=== PATIENT | female | born 1940 | race Caucasian/White ===

== ENCOUNTER 2022-05-19 09:00 | Outpatient (RCR) | payer MEDICARE, OTHER, SELFPAY ==
--- NOTE | 2022-04-21 13:53 | PTOPEVAL ---
Thank you for referring Janie Jorge to [facility].? She is scheduled to be seen for therapy? 3 x/week for 5 weeks. Please review, sign, date and return this plan of care FRANCESCA. I agree with and certify that the following plan of care is medically necessary. Referring Physician Date Attending Provider: Ramon Krueger MD Outpatient Past Medical History Past Medical History Source of Past Medical History Patient Neurological History Hx Neurological Disorders No Significant History Cardiovascular History Hx Atrial Fibrillation Yes Hx Hypercholesterolemia Yes: meds Hx Hypertension Yes: meds Hx Other Cardiac Disorders Yes: stents placed in abdomen for leg circulation February 2022 Respiratory History Hx Sleep Apnea Yes: CPAP Gastrointestinal History Hx Cholecystectomy Yes Musculoskeletal History Hx Arthritis Yes: generalized Hx Orthopedic Surgery Yes: B TKR > 20 yr ago Hx Other Musculoskeletal Disorders Yes: B shoulder pain/recommend for shoulder replacement- pt not want Endocrine History Hx Endocrine Disorders No Significant History Other History Hx Other Medical Conditions Yes: obesity Evaluation Information Problem Diagnosis B LE lymphedema Onset about 1 year Prior Level of Function Home Setting Home Type House Environmental Barriers Stairs, 2-4,Stairs, Lift Living Situation Alone Support Available Hired Assistance,Local Family Support Mobility Assistive Devices (Used Last 3 Walker, Standard Months) Comments Additional Prior Level of Function family assist with bathing, Comments dressing; hired helper for cleaning, laundry, cooking; does not go out into the community; Pain Assessment Pain Score 0: Self Report Lower Extremity Range of Motion General Lower Extremity Range of Motion Gross Lower Extremity Range of Motion sitting: ankle DF 5'; knee 0- Comments 95' B; Gross Lower Extremity Strength functional strength testing in sitting: R/L hip flexion 8 reps with slight lift off table; knee extension x 10 reps B to 0'; sit to stand with use of B UE's Bed Transfer Assessment Ambulation Assistive Devices Walker, Wheeled Sit to Stand Bed Transfer Ability Contact Guard Stand to Sit Bed Transfer Ability Contact Guard Cues Needed for Bed Transfer None Bed Transfer Comments
--- NOTE | 2022-05-13 15:24 | PCPTNOTE ---
pt signed release of info consent; faxed her info to [facility] for insurance authorization for a home compression pump.
--- NOTE | 2022-05-19 10:08 | PTOPEVAL ---
PHYSICAL THERAPY DISCHARGE REPORT 05-19-22 Refer to the clinical summary for her status today, compared to the initial evaluation. She made good progress with treatment. She will be discharged from PT services at this time. Thank you for referring Janie Jorge to [facility].? Please review, sign, date and return this Discharge report FRANCESCA. I agree with and certify that the following plan of care is medically necessary. Referring Physician Date Attending Provider: Ramon Krueger MD Subjective Information Janie reports: legs are not Query Text:As Reported By Patient/ as heavy; doing OK with Family garments--hard to put on, but can do it; will have family and helper at home help her; have the home pump, but not yet had the rep there to teach her how to use it--will call them for a time; Pain Assessment Self Report Self Report Pain Level 0 Pain Score Pain Score 0: Self Report Lymphedema Evaluation Skin Inspection Location Left Lower Extremity,Right Lower Extremity Lymphedema Stage I Skin Inspection Comment good skin color over both legs , with minimal redness over both anterior ankles, where garment rubbed; R 2 & 3 toes purplish- blue/bruised--she does not recall bumping them multiple areas of bruising over B thighs tenderness reported over both anterior shins verbal review of self MLD, skin care, garment don/doffing , wearing schedule; measured R and L ankles and mid calf--issued #'s to pt for self check PRN of leg size LE Circumferential Measurement Left LE Lymphedema Side Left Metatarsal Heads (cm) 21 Figure 8 of Ankle (cm) 52 8 cm From Bottom of Foot (cm) 26.4 12 cm From Bottom of Foot (cm) 26.4 16 cm From Bottom of Foot (cm) 28.2 20 cm From Bottom of Foot (cm) 31 24 cm From Bottom of Foot (cm) 37.8 28 cm From Bottom of Foot (cm) 40.8 32 cm From Bottom of Foot (cm) 45.5 36 cm From Bottom of Foot (cm) 49 40 cm From Bottom of Foot (cm) 52.5 44 cm From Bottom of Foot (cm) 57 48 cm From Bottom of Foot (cm) 59.5 52 cm From Bottom of Foot (cm) 62 56 cm From Bottom of Foot (cm) 64 60 c
--- NOTE | 2022-05-31 16:02 | PCPTNOTE ---
PER RIP AND GROOVE MACHINE OPERATOR KAYLYNN BENTLEY: Carolina Broderick, Janie's?daughter called in regards to Pt's compression wraps. Obtained permission from Pt's emergency contact Mandy (Daughter) to speak with Carolina about Janie's wraps. Called Carolina back discussed and educated her on?Velcro wrap compression wear schedule, garment care, and compression pump. Answered questions and concerns about wraps and how to properly inspect skin for any changes. Carolina asked about home health nursing, informed her to contact home health resources provided by Pt's insurance.?Informed her to give us a call if she had any more questions.? entered by Jordana Cyr; Director of Rehab Services for Kaylynn Bentley
== END 2022-05-19 12:56 | disposition home or self-care (01) ==
LOC: ANHPT 09:00
PROVIDERS: PCP Internal Medicine
DX: I89.0 Lymphedema, not elsewhere classified (principal)
CPT/HCPCS: 29581; 97016; 97110; 97140; 97162; 97530

== ENCOUNTER 2023-02-04 17:31 | Inpatient (IN) | payer MEDICARE, OTHER, SELFPAY ==
[2023-02-04] VITALS (19 sets, daily range): BP systolic 145–188; BP diastolic 62–170; PULSE 65–80; RESP 14–28; TEMP 36.6–36.8; O2SAT 96–98; BMI 40.1
--- NOTE | ~2023-02-04 | XR_ITS ---
EXAMINATION: XR chest 1V DATE: 02/04/2023 19:07 INDICATION: Weakness. Fall. TECHNIQUE: frontal view of the chest was obtained. COMPARISON: None FINDINGS: Small calcified nodules in the right lower lung zone consistent with old granulomatous disease. Mild coarse reticular opacities at the right upper lung zone and scattered throughout the left lung. Likel y tiny bilateral pleural effusions. No pneumothorax. Borderline heart size accounting for AP techniqu e. Severe osteoarthritis at the bilateral shoulders. IMPRESSION: 1. Mild reticular opacities in right upper lung zone and scattered throughout the left lung which cou ld represent mild pulmonary edema, pneumonia, atelectasis or chronic interstitial lung disease. 2. Likely tiny bilateral pleural effusions. 3. Borderline heart size. Reviewed, dictated and finalized at location A. IMPRESSION: 1. Mild reticular opacities in right upper lung zone and scattered throughout t he left lung which could represent mild pulmonary edema, pneumonia, atelectasis or chronic interstitial lung disease. 2. Likely tiny bilateral pleural effusions. 3. Borderline heart size.
--- NOTE | ~2023-02-04 | XR_ITS ---
EXAMINATION: XR lumbar spine min 4V DATE: 02/04/2023 19:06 INDICATION: Trauma to the low back post fall TECHNIQUE: Anteroposterior, lateral, and bilateral oblique views of the lumbar spine, and cone-down l ateral view of the lumbosacral junction were obtained. COMPARISON: None. FINDINGS: 304 mm retrolisthesis L1 on L2 and L2 on L3. 3 mm anterolisthesis L4 on L5. Vertebral body heights ar e normal. Sacral arches are intact. No evident fracture. Severe disc height loss with possible second ulysses fusion at L5-S1. Additional severe disc height loss with vacuum phenomena at . Moderate disc heig ht loss at L4-L5. Mild disc height loss at the lower thoracic spine, L1-L2 and L3-L4. Multilevel yaneth re bilateral lumbar facet osteoarthritis. No evident pars interarticularis defects. Right common martha c to common femoral artery stenting. Cholecystectomy clips in right upper quadrant. Mild osteoarthrit is at the bilateral hip and sacroiliac joints. IMPRESSION: 1. Severe lumbar spondylosis. No evident acute osseous abnormality. Reviewed, dictated and finalized at location A.
--- NOTE | 2023-02-04 17:41 | ECG_ITS ---
Measurements Intervals [place] Rate: 86 P: [place]: 0 QRS: -52 QRSD: 106 T: 102 QT: 320 QTc: 384 Interpretive Statements ATRIAL FIBRILLATION MARKED LEFT AXIS DEVIATION [QRS AXIS < -30] PATTERN CONSISTENT WITH PULMONARY DISEASE MODERATE VOLTAGE CRITERIA FOR LVH, CONSIDER NORMAL VARIANT [MEETS CRITERIA IN ONE OF: R(aVL), S(V1), R(V5), R(V5/V6)+S(V1)] POSSIBLE SEPTAL MYOCARDIAL INFARCTION , PROBABLY OLD [30 ms Q WAVE IN V1/V2] NO PREVIOUS ECG AVAILABLE FOR COMPARISON Electronically Signed On 02-04-2023 22:19:46 CDT by Savanah Dangelo M.D.
--- NOTE | 2023-02-04 17:47 | ED.FALL ---
HPI - Fall General Chief Complaint: Fall <LILIA Gonsalez Last Filed: 02/05/23 02:28> Stated Complaint: weakness <LILIA Gonsalez Last Filed: 02/05/23 02:28> Time Seen by Provider: 02/04/23 17:41 <LILIA Gonsalez Last Filed: 02/05/23 02:28> Source: patient and family <LILIA Gonsalez Last Filed: 02/05/23 02:28> Mode of arrival: ambulatory <LILIA Gonsalez Filed: 02/05/23 02:28> Limitations: no limitations <LILIA Gonsalez Last Filed: 02/05/23 02:28> History of Present Illness HPI Narrative: Patient is an 82 y/o female who presents to the ED with c/o weakness. Family at bedside assisted in providing information. They report patient has been increasingly weak over the last 1 week or so. Having more difficulty ambulating, performing her own ADLs. She lives at home alone. Patient typically uses a walker for ambulation, but does also have a wheelchair. Patient reported having urinary frequency and urgency, but difficulty actually voiding. She states she feels like she has to go, but is unable to. She was started on Macrobid by her primary care doctor on for suspected UTI. She did not have a urinalysis drawn at that time. Today, patient stood up out of her wheelchair to put a pair of pants on, but became weak and fell. She slid down the chair and landed on her bottom. She denied feeling dizzy or lightheaded prior to the fall, just weak. She did not hit her head or lose consciousness. Does not believe she passed out. She denied any significant injury from the fall, but did hit her low back against the chair. She was unable to get back up off the ground until family arrived approximately 1 hour later. Patient denies any recent fever, cough, cold symptoms, chest pain, difficulty breathing, abdominal pain, nausea, vomiting. <LILIA Gonsalez Filed: 02/05/23 02:28> Related Data Home Medications: Home Medications Medication Instructions Recorded Confirmed apixaban 5 mg tablet (Eliquis) 5 mg PO BID 02/17/21 02/04/23 calcium carbonate 500 mg calcium 500 mg PO DAILY 02/17/21 02/04/23 (1,250 mg) chewable tablet (Calcium 500) losartan 100 mg tablet 100 mg PO DAILY 02/17/21 02/04/23 mirabegron 50 mg tablet,extended 50 mg PO DAILY 02/17/21 02/04/23 release 24 hr (Myrbetriq) acetaminophen 500 mg tablet 500 mg PO Q6H PRN Pain 06/04/21 02/04/23 (Tylenol Extra Strength) diphenhydramine HCl 12.5 mg/5 mL 12.5 mg PO QHS PRN Sleep 06/04/21 02/04/23 oral elixir atorvastatin 20 mg tablet 20 mg PO DAILY 02/04/23 02/04/23 escitalopram oxalate 10 mg tablet 10 mg PO DAILY 02/04/23 02/04/23 <Nancy Santana PA-C - Last Filed: 02/05/23 02:28> Allergies/Adverse Reactions: Allergies Allergy/AdvReac Type Severity Reaction Status Date / Time No Known Allergies Allergy Verified 01/07/22 14:05 <Nancy Santana PA-C - Last Filed: 02/05/23 02:28> Review of Systems Review of Systems: CONSTITUTIONAL: Denies fever, chills, or sweats. EYES: Denies visual changes. CARDIOVASCULAR: Denies chest pain. RESPIRATORY: Denies cough or dyspnea. GASTROINTESTINAL: Denies abdominal pain, nausea, vomiting, or diarrhea. GENITOURINARY: See HPI. SKIN: Denies rash or itching. MUSCULOSKELETAL: See HPI. NEUROLOGIC: See HPI. <Nancy Santana PA-C - Last Filed: 02/05/23 02:28> All systems reviewed & are unremarkable except as noted in HPI and below <Nancy Santana PA-C - Last Filed: 02/05/23 02:28> PMFSH Past Medical History Medical History: Medical History RUPERT positive Arthritis Atrial fibrillation Encounter for medication management Generalized osteoarthritis of multiple sites Hypertension Inflammatory arthritis Lymphedema CHRIS (obstructive sleep apnea) <Nancy Santana PA-C - Last Filed: 02/05/23 02
--- NOTE | 2023-02-04 17:56 | PC.NURSE ---
MASTER Cruz at bedside to assess pt.
[2023-02-04 18:37] LABS: Basophils Absolute Auto 0.1 K/mm3 (0.0-0.1); Basophils Percent Auto 0.5 % (0.2-1.2); Eosinophils Absolute Auto 0.4 K/mm3 (0-0.3); Hematocrit 44.8 % (37.0-47.0); Hemoglobin 15.1 g/dL (12.0-15.0); Immature Granulocyte Absolute 0.06 K/mm3 (0.00-0.031); Immature Granulocyte Percent A 0.5 % (0-0.5); Lymphocytes Absolute Auto 0.65 K/mm3 (0.9-3.2); Lymphocytes Percent Auto 5.6 % (18.3-44.2); Mean Corpuscular HGB Conc 33.7 g/dl (32-36); Mean Corpuscular Hemoglobin 30.1 pg (26-34); Mean Corpuscular Volume 89.4 fl (80-100); Mean Platelet Volume 9.5 fl (7.4-10.4); Monocytes Absolute Auto 0.9 K/mm3 (0.1-0.6); Monocytes Percent Auto 7.6 % (2.6-8.5); Neutrophils Absolute Auto 9.7 K/mm3 (1.3-6.7); Neutrophils Percent Auto 82.8 % (45.5-73.1); Platelet Count Result 254 k/mm3 (150-375); Red Blood Count 5.01 M/mm3 (4.2-5.4); Red Cell Distribution Width 14.2 % (11.5-14.5); White Blood Count 11.7 K/mm3 (4.5-10.0)
[2023-02-04 19:01] LABS: Alanine Aminotransferase 18 U/L (6-35); Albumin Level 4.2 g/dL (3.5-5.1); Alkaline Phosphatase 78 U/L (38-126); Anion Gap 6 mmol/L (8-16); Aspartate Amino Transferase 24 U/L (14-36); Bilirubin,Total 1.2 mg/dL (0.2-1.3); Blood Urea Nitrogen 13 mg/dL (7-17); Calcium 9.7 mg/dL (8.4-10.2); Carbon Dioxide 39 mmol/L (22-30); Chloride 86 mmol/L (98-107); Creatine Kinase 80 U/L (30-135); Estimated Glomerular Filt Rate > 60; Glucose 81 mg/dL (65-110); Sodium 131 mmol/L (137-145)
[2023-02-04 19:10] LABS: NT Pro B Type Natriuretic Pept 1080 pg/mL (19.9-100); Troponin I < 0.012 ng/mL (0.000-0.034)
[2023-02-04 19:13] LABS: Influenza A QL RT-PCR Negative (Negative); Influenza B QL RT-PCR Negative (Negative); SARS-CoV-2 RNA PCR Negative
--- NOTE | 2023-02-04 19:14 | PC.NURSE ---
Patient report given to PUNEET Segundo. All questions answered and care of patient transferred.
[2023-02-04 19:15] LABS: Add Urine Microscopic? YES; Appearance Urine Clear (Clear); Bacteria Urine None Seen /hpf; Bilirubin Urine Negative (Negative); Blood Urine Negative (Negative); Color Urine Dark Yellow (Yellow); Glucose Urine UA Negative (Negative); Ketones Urine Negative (Negative); Leukocyte Esterase Ur Trace LEU/UL (Negative); Need Manual Microscopic Reviewed; Nitrate Urine Negative (Negative); Non Pathogenic Casts 0-2; Protein Urine Negative (Negative); Specific Grav Ur 1.012 (1.001-1.035); Squamous Epithelial Cell Urine Occasional /hpf (Few); WBC Urine 0-5 /hpf
--- NOTE | 2023-02-04 20:33 | PC.NURSE ---
Purewick catheter placed for patient comfort due to frequent urination and difficulty with rolling on ED stretcher.
[2023-02-04] MEDS: SODIUM CHLORIDE 0.9% IV 500 ML 999 ML IV CONT (21:20)
[2023-02-04] MEDS: POTASSIUM CHLORIDE INJ 40 MEQ in SODIUM CHLORIDE 0.9% IV 500 ML 130 MEQ IVPB (21:20)
--- NOTE | 2023-02-04 21:30 | PM.IMHP ---
H&P: HPI History of Present Illness Date/Time: 02/04/23 21:30 Chief Complaint: Generalized weakness Narrative: This is an 82-year-old female with past medical history significant for morbid obesity, atrial fibrillation, rate controlled anticoagulated, chronic lymphedema, generalized osteoarthritis, hypertension, obstructive sleep apnea. Patient presents to the emergency room due to generalized weakness had a for while sitting in a chair, no loss of consciousness, patient recently concluded outpatient treatment for urinary tract infection with oral antibiotics, Macrobid, denies any fevers, rigors, chills, nausea, vomiting, abdominal pain, pain or burning with urination, no chest pain, no palpitations. Preliminary workup was significant for WBC with the leukocyte count of 11,000, a chest x-ray was reported as: FINDINGS: Small calcified nodules in the right lower lung zone consistent with old granulomatous disease. Mild coarse reticular opacities at the right upper lung zone and scattered throughout the left lung. Likely tiny bilateral pleural effusions. No pneumothorax. Borderline heart size accounting for AP technique. Severe osteoarthritis at the bilateral shoulders. IMPRESSION: 1. Mild reticular opacities in right upper lung zone and scattered throughout the left lung which could represent mild pulmonary edema, pneumonia, atelectasis or chronic interstitial lung disease. 2. Likely tiny bilateral pleural effusions. 3. Borderline heart size. Review of Systems Review of Systems: Generalized weakness Constitutional: Constitutional: Denies chills, Reports fatigue, Denies fever(s), Reports lethargy, Denies malaise, Denies night sweats and Reports weakness Eyes: Eyes: Denies change in vision ENT: Denies dysphagia and Denies odynophagia Cardiovascular: Cardiovascular: Denies chest pain, Reports leg edema, Denies palpitations and Reports dyspnea Respiratory: Respiratory: Denies chest congestion, Denies cough, Denies excessive phlegm production, Denies pain on inspiration and Reports dyspnea Gastrointestinal: Gastrointestinal: Denies abdominal pain, Denies dyspepsia, Denies heartburn, Denies diarrhea, Denies nausea and Denies vomiting Genitourinary: Genitourinary: Denies dysuria Musculoskeletal: Musculoskeletal: Denies back pain, Denies myalgias, Reports arthralgias (Bilateral groin area) and Reports muscle weakness Integumentary/Breasts: Skin/Breast: Denies rash Neurologic: Denies focal weakness and Denies Sensory deficit (Neuro) Psychiatric: Psychiatric: Reports no additional psychiatric complaints and Reports as per HPI Endocrine: Endocrine: Denies cold intolerance, Denies flushing, Denies heat intolerance, Denies polyphagia, Denies polydipsia and Denies palpitations Hematologic/Lymphatic: Hematologic/Lymphatic: Reports no additional hematologic/lymphatic complaints and Reports as per HPI Allergic/Immunologic: Allergic/Immunologic: Reports no additional allergic/immunologic complaints and Reports as per HPI PMFSH Past Medical History Medical History (Updated 02/05/23 @ 01:08 by Marbella Rodriguez MD) RUPERT positive Arthritis Atrial fibrillation Encounter for medication management Generalized osteoarthritis of multiple sites Hypertension Inflammatory arthritis Lymphedema CHRIS (obstructive sleep apnea) Family History Family History Father Cerebrovascular accident Social History Social History Smoking packs per day: 0.5 Smoking cigarettes per day: 10.0 Years smoked: 30 Smoking pack-years: 15.00 Smoking status: Former smoker Tobacco type: cigarettes Alcohol intake: current Substance use: never Substance use type: does not use Lack of Transportation: No Lack of Food: Never True Current Housing: I Have Housing Concerned About Future Housing: No Difficulty Paying Gas/Electric Bill
--- NOTE | 2023-02-04 23:10 | ADMGEN ---
This patient, Janie Jorge, was admitted to [facility] Room 332-02. Patient/family oriented to hospital policies and general routines including ID bracelet, bed and alarms, visiting hours, pain management, procedures, bathroom and other care routines, personal items, smoking policy, room service/diet, and visiting hours. Information on how to activate the Rapid Response Team has been discussed. Patient/Family are encouraged to report perceived risks to care and to ask questions if they do not understand what they are told or what they should do.
[2023-02-05] MEDS: cefTRIAXone 2 GM/NS 100 ML 2 GM/100 ML BAG IVPB (01:57)
[2023-02-05] MEDS: methocarbamoL 750 MG TABLET PO ×3 (01:57→20:02)
[2023-02-05] MEDS: APIXABAN 5 MG TABLET PO ×3 (01:57→16:24)
[2023-02-05 06:00] VITALS: BP 154/66; PULSE 72; RESP 20; TEMP 36.7; O2SAT 95
[2023-02-05] MEDS: MIRABEGRON 50 MG ER TABLET PO (08:43)
[2023-02-05] MEDS: ESCITALOPRAM OXALATE 10 MG TABLET PO (08:43)
[2023-02-05] MEDS: CALCIUM CARBONATE (TUMS) 500 MG (200 MG ELEMENTAL) PO (08:43)
[2023-02-05] MEDS: LOSARTAN POTASSIUM 100 MG TABLET PO (08:43)
--- NOTE | 2023-02-05 08:44 | PM.IMPN ---
Progress Note: A&P Assessment and Plan (1) Generalized weakness: Code(s): R53.1 - Weakness Status: Acute Assessment and Plan: Patient with increasing weakness over the last week. Patient typically uses walker for ambulation. Patient recently treated for UTI with Macrobid. On 02/04/2023 patient had stood up and began to felt weak and fell. Likely deconditioning PT OT consult UA with trace leukocyte esterase and 6-10 rbc's. Chest x-ray could represent mild pulmonary edema, pneumonia, atelectasis or chronic interstitial lung disease. White count on admission 11.7 Will continue UTI treatment. Prior to ED arrival patient had been treated for 3 days. Will treat for an additional 4 days for total of 7 days UTI treatment. Will give patient Rocephin 1 g Q 24 hours. Blood culture pending EKG revealed AFib BNP 1080, echocardiogram ordered (2) Lung infiltrate: Code(s): R91.8 - Other nonspecific abnormal finding of lung field Status: Acute Assessment and Plan: Patient given 1 dose of Rocephin and Zithromax in the ED. will hold and wait on culture results. Patient does not appear infectious. Cultures in progress (3) Fall: Code(s): W19.XXXA - Unspecified fall, initial encounter Status: Acute Assessment and Plan: For precautions No pain from fall or evidence of fracture. (4) Atrial fibrillation: Code(s): I48.91 - Unspecified atrial fibrillation Status: Chronic Assessment and Plan: Rate control and anticoagulated (5) Lymphedema: Code(s): I89.0 - Lymphedema, not elsewhere classified Status: Chronic Assessment and Plan: Art wraps in place (6) Hypertension: Code(s): I10 - Essential (primary) hypertension Status: Chronic Assessment and Plan: Continue home meds Continue to monitor Subjective Date/time seen: 02/05/23 08:44 Interval history: Patient with progressive weakness and having difficulty going from sitting to standing. She does have a history of CHF although she denies increased shortness of breath and chest pain. She has lymphedema bilaterally of the lower extremities is chronically edematous. She does report difficulty with starting the flow of urination. Will bladder scan. Talked with both the patient's daughters about plans for possible rehab. Review of Systems Review of Systems: All systems reviewed & are unremarkable except as noted in HPI and below Objective Data Vital Signs Vital Signs: Vital Signs - 24 hr 02/04/23 17:33 02/04/23 17:51 02/04/23 17:52 Temperature 97.8 F Pulse Rate 74 78 79 Respiratory Rate 18 25 H 22 H Blood Pressure 145/108 H 163/79 H Pulse Oximetry 98 98 96 Oxygen Delivery Room Air 02/04/23 18:00 02/04/23 18:15 02/04/23 18:30 Temperature Pulse Rate 67 74 67 Respiratory Rate 18 22 H 18 Blood Pressure Pulse Oximetry 96 Oxygen Delivery 02/04/23 18:45 02/04/23 19:06 02/04/23 19:15 Temperature Pulse Rate 73 73 65 Respiratory Rate 19 14 20 Blood Pressure Pulse Oximetry 97 98 Oxygen Delivery 02/04/23 19:17 02/04/23 19:30 02/04/23 19:45 Temperature Pulse Rate 66 75 79 Respiratory Rate 19 16 26 H Blood Pressure 188/170 H Pulse Oximetry 98 Oxygen Delivery 02/04/23 20:32 02/04/23 20:45 02/04/23 21:00 Temperature Pulse Rate 80 68 70 Respiratory Rate 25 H 20 22 H Blood Pressure Pulse Oximetry Oxygen Delivery 02/04/23 21:16 02/04/23 21:31 02/04/23 21:45 Temperature Pulse Rate 70 72 80 Respiratory Rate 22 H 26 H 28 H Blood Pressure Pulse Oximetry Oxygen Delivery 02/04/23 23:39 02/04/23 23:16 02/05/23 06:00 Temperature 98.2 F 98.1 F Pulse Rate 75 72 Respiratory Rate 20 20 Blood Pressure 152/62 H 154/66 H Pulse Oximetry 96 95 Oxygen Delivery Room Air Intake/Output Intake/Output: Intake & Outp
[2023-02-05 08:48] LABS: Hematocrit 42.5 % (37.0-47.0); Hemoglobin 13.8 g/dL (12.0-15.0); Mean Corpuscular HGB Conc 32.5 g/dl (32-36); Mean Corpuscular Hemoglobin 29.6 pg (26-34); Mean Platelet Volume 9.8 fl (7.4-10.4); Platelet Count Result 221 k/mm3 (150-375); Red Blood Count 4.67 M/mm3 (4.2-5.4); Red Cell Distribution Width 14.5 % (11.5-14.5); White Blood Count 10.1 K/mm3 (4.5-10.0)
[2023-02-05 08:55] LABS: Anion Gap 4 mmol/L (8-16); Blood Urea Nitrogen 16 mg/dL (7-17); Carbon Dioxide 34 mmol/L (22-30); Chloride 94 mmol/L (98-107); Estimated CRCL calculation 92 ml/min; Estimated Glomerular Filt Rate > 60; Glucose 96 mg/dL (65-110); Potassium 3.3 mmol/L (3.4-5.0); Sodium 132 mmol/L (137-145)
[2023-02-05] MEDS: POTASSIUM CHLORIDE 20 MEQ PACKET (FOR LIQUID) 40 MEQ PO (10:41)
[2023-02-05 13:47] VITALS: BP 143/72; PULSE 69; RESP 18; TEMP 36.7; O2SAT 97
[2023-02-05 22:00] VITALS: BP 169/77; PULSE 74; RESP 16; TEMP 36.2; O2SAT 94
[2023-02-06] VITALS (8 sets, daily range): BP systolic 142–154; BP diastolic 54–80; PULSE 73–93; RESP 14–18; TEMP 35.5–36.6; O2SAT 77–100
--- NOTE | 2023-02-06 | ECHO_ITS ---
Patient Info Name: Janie Jorge Age: 82 years : 1940 Gender: Female Ht: 66 in Wt: 250 lbs BSA: 2.35 m2 HR: 81 bpm BP: 169 / 77 mmHg Heart Rhythm: Atrial Fibrillation Exam Date: 02/06/2023 1:32 PM Exam Location: [facility] Patient Status: Outpatient Admit Date: 02/04/2023 Staff Ordering Physician: Nancy Santana PA-C Rubber And Pounder: Jeronimo Stein RDCS, RT Attending Provider: Marbella Rodriguez MD Referring Physician: Max CARY; Exam Type: CA echo doppler color flow Study Info Indications I50.9 - Heart failure, unspecified Complete two-dimensional, color flow and Doppler transthoracic echocardiogram is performed. Summary 1. Complete two-dimensional, color flow and Doppler transthoracic echocardiogram is performed. 2. Normal left ventricular size thickness with hyperdynamic systolic function. 3. Grade 2 diastolic noncompliance. 4. Left atrial dilation. 5. Atrial fibrillation. 6. Mild mitral annular calcification. Left Ventricle Left ventricular chamber dimension is normal. Left ventricular systolic function is hyperdynamic, estimated at >70%. The left ventricular diastolic function is grade II diastolic dysfunction. Right Ventricle Right ventricular chamber dimension is normal. Left Atria Left atrial chamber dimension is moderately enlarged. Right Atria Right atrial chamber dimension is mildly enlarged. Aortic Valve The aortic valve is normal. Pulmonic Valve The pulmonic valve is not well visualized. Mitral Valve The mitral valve has normal leaflets. The mitral valve annulus is mildly calcified. Tricuspid Valve The tricuspid valve leaflets are normal. There is mild tricuspid valve regurgitation. Pericardium/Pleural The pericardium appears normal. Aorta The aortic root size at the sinus of Valsalva is normal. Left Ventricular Outflow Tract Name Value Normal LVOT 2D LVOT Diameter 1.9 cm LVOT Doppler LVOT Peak Gradient 4 mmHg LVOT Mean Gradient 2 mmHg LVOT VTI 23 cm LVOT VTI/AV VTI Ratio 0.8 LVOT Stroke Volume 62 ml LVOT CO 3.8 l/min LVOT CI 1.6 l/min/m2 Mitral Valve Name Value Normal MV Doppler MV Decel Candler 608 cm/s2 MV PHT 40 ms MV Area (PHT) 5.5 cm2 4.0-5.0 MV Diastolic Function MV E Peak Velocity 83 cm/s MV A Peak Velocity 39 cm/s MV E/A 2.1 MV Decel Time 137 ms
[2023-02-06 06:44] LABS: Hematocrit 42.8 % (37.0-47.0); Hemoglobin 14.2 g/dL (12.0-15.0); Mean Corpuscular HGB Conc 33.2 g/dl (32-36); Mean Corpuscular Hemoglobin 29.8 pg (26-34); Mean Corpuscular Volume 89.9 fl (80-100); Mean Platelet Volume 9.6 fl (7.4-10.4); Platelet Count Result 259 k/mm3 (150-375); Red Blood Count 4.76 M/mm3 (4.2-5.4); Red Cell Distribution Width 14.4 % (11.5-14.5); White Blood Count 8.8 K/mm3 (4.5-10.0)
[2023-02-06 06:50] LABS: Alanine Aminotransferase 18 U/L (6-35); Albumin Level 3.8 g/dL (3.5-5.1); Alkaline Phosphatase 63 U/L (38-126); Anion Gap 4 mmol/L (8-16); Aspartate Amino Transferase 24 U/L (14-36); Bilirubin,Total 0.8 mg/dL (0.2-1.3); Blood Urea Nitrogen 13 mg/dL (7-17); Calcium 8.9 mg/dL (8.4-10.2); Carbon Dioxide 35 mmol/L (22-30); Chloride 92 mmol/L (98-107); Estimated CRCL calculation 92 ml/min; Estimated Glomerular Filt Rate > 60; Glucose 99 mg/dL (65-110); Potassium 3.1 mmol/L (3.4-5.0); Sodium 131 mmol/L (137-145)
[2023-02-06] MEDS: MIRABEGRON 50 MG ER TABLET PO (08:18)
[2023-02-06] MEDS: LOSARTAN POTASSIUM 100 MG TABLET PO (08:18)
[2023-02-06] MEDS: APIXABAN 5 MG TABLET PO ×2 (08:19→16:33)
[2023-02-06] MEDS: ESCITALOPRAM OXALATE 10 MG TABLET PO (08:19)
--- NOTE | 2023-02-06 10:11 | PCOTNOTE ---
Pt is currently with wound care at this time. Will attempt at a later time.
[2023-02-06] MEDS: POTASSIUM CHLORIDE INJ 40 MEQ in SODIUM CHLORIDE 0.9% IV 500 ML 130 MEQ IVPB (10:26)
--- NOTE | 2023-02-06 14:23 | PCCCNOTE ---
On 02/06/23, the student, [Sheila Clay ], provided care and completed [facility] documentation on this patient. I have reviewed the student's documentation and agree with the findings.
--- NOTE | 2023-02-06 14:38 | PM.IMPN ---
Progress Note: A&P Assessment and Plan (1) Generalized weakness: Code(s): R53.1 - Weakness Status: Acute Assessment and Plan: Patient with increasing weakness over the last week. Patient typically uses walker for ambulation. Patient recently treated for UTI with Macrobid. On 02/04/2023 patient had stood up and began to felt weak and fell. Likely deconditioning PT OT consult UA with trace leukocyte esterase and 6-10 rbc's. Chest x-ray could represent mild pulmonary edema, pneumonia, atelectasis or chronic interstitial lung disease. White count on admission 11.7 Will continue UTI treatment. Prior to ED arrival patient had been treated for 3 days. Will treat for an additional 4 days for total of 7 days UTI treatment. Will give patient Rocephin 1 g Q 24 hours. Blood culture no growth to date. EKG revealed AFib BNP 1080, echocardiogram pending. Patient plan to discharge to [facility] versus home health depending on insurance coverage. (2) Lung infiltrate: Code(s): R91.8 - Other nonspecific abnormal finding of lung field Status: Acute Assessment and Plan: Patient given 1 dose of Rocephin and Zithromax in the ED. will hold and wait on culture results. Patient does not appear infectious. Cultures in progress (3) Fall: Code(s): W19.XXXA - Unspecified fall, initial encounter Status: Acute Assessment and Plan: For precautions No pain from fall or evidence of fracture. (4) Atrial fibrillation: Code(s): I48.91 - Unspecified atrial fibrillation Status: Chronic Assessment and Plan: Rate control and anticoagulated (5) Lymphedema: Code(s): I89.0 - Lymphedema, not elsewhere classified Status: Chronic Assessment and Plan: Art wraps in place (6) Hypertension: Code(s): I10 - Essential (primary) hypertension Status: Chronic Assessment and Plan: Continue home meds Continue to monitor Subjective Date/time seen: 02/06/23 14:38 Interval history: Patient complains of left shoulder pain today and states her arthritis is acting up. Patient states she has arthritis all along her neck and shoulder blades. she is reluctant to work with therapy. Patient's daughters at bedside. She denies chest pain, shortness a breath, nausea, vomiting and dysuria. She has thigh soreness most likely due to therapy. Review of Systems Review of Systems: All systems reviewed & are unremarkable except as noted in HPI and below Exam Narrative: GENERAL: Comfortable, no acute distress HENMT: moist mucous membranes EYES: EOM intact b/l NECK: no lymphadenopathy RESPIRATORY: clear to auscultation CARDIO: irregular rhythm, rate controlled GI: soft, nontender, bowel sounds present SKIN: no rashes EXTREMITIES: Bilateral lymphedema Objective Data Vital Signs Vital Signs: Vital Signs - 24 hr 02/05/23 15:30 02/05/23 22:00 02/06/23 06:00 Temperature 97.2 F L 96 F L Pulse Rate 74 90 Respiratory Rate 16 18 Blood Pressure 169/77 H 143/80 H Pulse Oximetry 94 95 Oxygen Delivery Room Air 02/06/23 14:00 Temperature 96.1 F L Pulse Rate 73 Respiratory Rate 18 Blood Pressure 142/54 H Pulse Oximetry 100 Oxygen Delivery Intake/Output Intake/Output: Intake & Output 02/03/23 02/04/23 02/05/23 02/06/23 23:59 23:59 23:59 23:59 Intake Total 651 836 9823 Output Total 1150 Balance 500 920 120 Meds/Results Medications: Active Medications Generic Name Dose Route Start Last Admin Trade Name Freq PRN Reason Stop Dose Admin Acetaminophen 500 mg 02/05/23 01:10 Acetaminophen 500 Mg Tablet PO Q6H PRN Pain Rated 1-3 Apixaban 5 mg 02/05/23 01:15 02/06/23 08:19 Apixaban 5 Mg Tablet PO 5 mg BID AMILCAR Administration Calcium Carbonate 200 mg 02/05/23 09:00 02/06/23 08:25 Calcium Carbonate (Tums) 500 Mg (200 Mg Elemental
[2023-02-06] MEDS: TOLNAFTATE 1% POWDER 45 GM BTL 1 APPLIC TOPICAL ×2 (16:33→20:40)
[2023-02-06] MEDS: methocarbamoL 750 MG TABLET PO (20:41)
[2023-02-07] VITALS (7 sets, daily range): BP systolic 140–148; BP diastolic 73–92; PULSE 64–81; RESP 18; TEMP 36.1–36.4; O2SAT 97–99
[2023-02-07] MEDS: ACETAMINOPHEN 500 MG TABLET PO (06:12)
[2023-02-07 06:21] LABS: Hematocrit 41.5 % (37.0-47.0); Hemoglobin 13.7 g/dL (12.0-15.0); Mean Corpuscular Hemoglobin 29.7 pg (26-34); Mean Platelet Volume 9.4 fl (7.4-10.4); Platelet Count Result 252 k/mm3 (150-375); Red Blood Count 4.61 M/mm3 (4.2-5.4); Red Cell Distribution Width 14.5 % (11.5-14.5)
[2023-02-07 06:34] LABS: Anion Gap 4 mmol/L (8-16); Blood Urea Nitrogen 13 mg/dL (7-17); Calcium 8.8 mg/dL (8.4-10.2); Carbon Dioxide 32 mmol/L (22-30); Chloride 95 mmol/L (98-107); Estimated CRCL calculation 112 ml/min; Estimated Glomerular Filt Rate > 60; Glucose 96 mg/dL (65-110); Potassium 3.5 mmol/L (3.4-5.0); Sodium 131 mmol/L (137-145)
[2023-02-07] MEDS: ESCITALOPRAM OXALATE 10 MG TABLET PO (08:16)
[2023-02-07] MEDS: APIXABAN 5 MG TABLET PO ×2 (08:16→17:04)
[2023-02-07] MEDS: MIRABEGRON 50 MG ER TABLET PO (08:16)
[2023-02-07] MEDS: LOSARTAN POTASSIUM 100 MG TABLET PO (08:16)
[2023-02-07] MEDS: WATER FOR IRRIGATION, STERILE 1,000 ML BOTTLE 1000 ML (08:17)
[2023-02-07] MEDS: TOLNAFTATE 1% POWDER 45 GM BTL 1 APPLIC TOPICAL (08:18)
[2023-02-07] MEDS: traMADol HCL (*CRX) 50 MG TABLET PO (09:50)
[2023-02-07] MEDS: DICLOFENAC SODIUM 1% 100 GM GEL (*BKC) 1 APPLIC TOPICAL (09:50)
--- NOTE | 2023-02-07 14:58 | PM.DS ---
DS: Admitting Diagnosis Discharge Date 02/07/23 Admitting Diagnosis Weakness DS: Discharge Diagnosis Discharge Diagnosis (1) Generalized weakness: Code(s): R53.1 - Weakness Status: Acute Assessment and Plan: Patient with increasing weakness over the last week. Patient typically uses walker for ambulation. Patient recently treated for UTI with Macrobid. On 02/04/2023 patient had stood up and began to felt weak and fell. Likely deconditioning PT OT consult UA with trace leukocyte esterase and 6-10 rbc's. Chest x-ray could represent mild pulmonary edema, pneumonia, atelectasis or chronic interstitial lung disease. White count on admission 11.7 but has trended down into normal range. Will continue UTI treatment. Prior to ED arrival patient had been treated for 3 days. Will treat for an additional 4 days for total of 7 days UTI treatment. Will give patient Rocephin 1 g Q 24 hours. Blood culture no growth to date. EKG revealed AFib. Patient has known history of AFib BNP 1080 echocardiogram EF greater than 70%, grade 2 diastolic dysfunction, AFib, mild mitral annular calcification patient to discharge to rehab. (2) Lung infiltrate: Code(s): R91.8 - Other nonspecific abnormal finding of lung field Status: Acute Assessment and Plan: Patient given 1 dose of Rocephin and Zithromax in the ED. will hold and wait on culture results. Patient does not appear infectious. Cultures No growth to date (3) Fall: Code(s): W19.XXXA - Unspecified fall, initial encounter Status: Acute Assessment and Plan: For precautions No pain from fall or evidence of fracture. (4) Atrial fibrillation: Code(s): I48.91 - Unspecified atrial fibrillation Status: Chronic Assessment and Plan: Rate control and anticoagulated (5) Lymphedema: Code(s): I89.0 - Lymphedema, not elsewhere classified Status: Chronic Assessment and Plan: Art wraps in place (6) Hypertension: Code(s): I10 - Essential (primary) hypertension Status: Chronic Assessment and Plan: Continue home meds Continue to monitor DS: Summary Hospital Course Hospital Course: This is an 83-year-old female with past medical history AFib, chronic lymphedema, osteoarthritis, hypertension, CHRIS and morbid obesity the presented to the ED on 02/04/2023 due to generalized weakness. She has not fallen, loss consciousness or had a change in medication. Patient was recently treated for an outpatient UTI and was prescribed Macrobid. Patient did not have urinalysis done she was just treated based off symptoms of difficulty initiating urination. On admission patient's white blood cell [place] was [id number]. Chest x-ray revealing chronic lung disease, mild opacities, bilateral tiny pleural effusions and severe osteoarthritis of the bilateral shoulders. Patient denied symptoms of cough, body aches, chills, fever, nausea, vomiting, chest pain and shortness of breath. Is unlikely the patient is experiencing pneumonia. patient was treated for UTI for 3 days prior to ED arrival. Patient was started on ceftriaxone to complete a total of 7 days of treatment for UTI. Blood cultures drawn and no growth to date. Patient's EKG revealed AFib. Echocardiogram with EF of greater than 70% and grade 2 diastolic dysfunction. Patient's weakness likely from physical deconditioning. Patient's family states that since her she has been less and less active and has not been in the mood to do much. Patient worked with PT and OT during her hospital stay. Patient's labs and vital signs are stable and she is medically clear for discharge. Time Spent with Patient Time attestation: Total time spent providing and/or coordinating discharge services: Exam Narrative: GENERAL: Comfortable, no acute distress HENMT: moist mucous membranes EYES: EOM
[2023-02-07 16:29] LABS: EDCOVIDSCREEN Negative (Negative)
== END 2023-02-07 18:40 | DRG 292 ==
LOC: ANHED 18:08 → ANH3MEDSUR 21:44
PROVIDERS: Admitting Provider Internal Medicine; Emergency Provider Physician Assistant; PCP Internal Medicine; Visit Provider Internal Medicine Critical Care Medicine
DX: I11.0 Hypertensive heart disease with heart failure (principal); N39.0 Urinary tract infection, site not specified; I50.32 Chronic diastolic (congestive) heart failure; Z68.41 Body mass index [BMI] 40.0-44.9, adult; R53.81 Other malaise; G47.33 Obstructive sleep apnea (adult) (pediatric); I48.91 Unspecified atrial fibrillation; I89.0 Lymphedema, not elsewhere classified; E66.01 Morbid (severe) obesity due to excess calories; M19.012 Primary osteoarthritis, left shoulder; M19.011 Primary osteoarthritis, right shoulder; R91.8 Other nonspecific abnormal finding of lung field; W19.XXXA Unspecified fall, initial encounter; Z20.822 Contact with and (suspected) exposure to COVID-19; Z87.891 Personal history of nicotine dependence; Z79.01 Long term (current) use of anticoagulants
CPT/HCPCS: 36415; 71045; 72110; 80048; 80053; 81001; 82550; 83880; 84484; 85025; 85027; 87040; 87426; 87636; 93005; 93306; 96365; 96366; 96375; 97110; 97116; 97161; 97165; 97530; 97535; 99285; A9270; C9803; G0378; J0456; J0696; J3480; J7040

== ENCOUNTER 2023-03-19 20:43 | Emergency (ER) | payer MEDICARE, OTHER, SELFPAY ==
[2023-03-19] VITALS (12 sets, daily range): BP systolic 147–151; BP diastolic 75–85; PULSE 71–87; RESP 12–32; O2SAT 96–100
--- NOTE | ~2023-03-19 | CT_ITS ---
EXAMINATION: CT brain wo con DATE: 03/19/2023 21:37 INDICATION: Head injury. TECHNIQUE: Computed tomography (CT) of the head was performed without intravenous contrast. The mA wa s adjusted according to patient size. Iterative reconstruction technique was employed. The dose-lengt h product was 681.00 mGy-cm. COMPARISON: None FINDINGS: There is no intracranial hemorrhage, acute infarction, or abnormal intracranial mass lesion . There are scattered areas of low attenuation in the cerebral white matter, which is within normal l imits for the patient's age. There is a right posterior scalp hematoma. The ventricles are normal in size. There are likely changes of ocular lens replacement surgeries. There is mild mucosal thickening in the ethmoid sinuses. The mastoid air cells are normal. IMPRESSION: 1. Normal aging brain. Reviewed, dictated and finalized at location A. IMPRESSION: 1. Normal aging brain.
--- NOTE | 2023-03-19 20:50 | ED.FALL ---
HPI - Fall General Chief Complaint: Fall Stated Complaint: HEAD LAC S/P GLF Time Seen by Provider: 03/19/23 20:44 History of Present Illness HPI Narrative: 82-year-old female presenting to the ED for evaluation after having a ground fall. Patient states she was leaning forward and lost her balance and had a fall resulting in a posterior scalp injury. Patient is on Xarelto. Patient denies any loss of consciousness. Patient denies any other pain or injury. Upon arrival to the ED by EMS patient's laceration is no longer bleeding. Related Data Home Medications Medication Instructions Recorded Confirmed apixaban 5 mg tablet (Eliquis) 5 mg PO BID 02/17/21 02/04/23 calcium carbonate 500 mg calcium 500 mg PO DAILY 02/17/21 02/04/23 (1,250 mg) chewable tablet (Calcium 500) losartan 100 mg tablet 100 mg PO DAILY 02/17/21 02/04/23 mirabegron 50 mg tablet,extended 50 mg PO DAILY 02/17/21 02/04/23 release 24 hr (Myrbetriq) acetaminophen 500 mg tablet 500 mg PO Q6H PRN Pain 06/04/21 02/04/23 (Tylenol Extra Strength) diphenhydramine HCl 12.5 mg/5 mL 12.5 mg PO QHS PRN Sleep 06/04/21 02/04/23 oral elixir atorvastatin 20 mg tablet 20 mg PO DAILY 02/04/23 02/04/23 escitalopram oxalate 10 mg tablet 10 mg PO DAILY 02/04/23 02/04/23 Allergies Allergy/AdvReac Type Severity Reaction Status Date / Time No Known Allergies Allergy Verified 01/07/22 14:05 Review of Systems Review of Systems: All systems reviewed & are unremarkable except as noted in HPI and below PMFSH Past Medical History Medical History RUPERT positive Arthritis Atrial fibrillation Encounter for medication management Generalized osteoarthritis of multiple sites Hypertension Inflammatory arthritis Lymphedema CHRIS (obstructive sleep apnea) Family History Family History Father Cerebrovascular accident Social History Social History Smoking packs per day: 0.5 Smoking cigarettes per day: 10.0 Years smoked: 30 Smoking pack-years: 15.00 Smoking status: Former smoker Tobacco type: cigarettes Alcohol intake: current Substance use: never Substance use type: does not use Lack of Transportation: No Lack of Food: Never True Current Housing: I Have Housing Concerned About Future Housing: No Difficulty Paying Gas/Electric Bills: No Difficulty Paying for Meds: No Currently Unemployed: No Education: High School Diploma/GED Difficulty w/ Childcare or Family Care: No Spiritual care concerns: No Exam Narrative: APPEARANCE: Well appearing, no pain, no distress, well-nourished. HEAD: normocephalic, posterior scalp laceration. EYES: PERRLA/EOMI, conjunctivae clear. NOSE: Normal no drainage EARS:TMS clear with good light reflex. THROAT: Pharynx clear, no exudate. NECK: Supple. No adenopathy, no masses. RESPIRATORY: Airway patent, respirations nonlabored. Clear to auscultation bilaterally, no rales, rhonchi, wheezing. CARDIOVASCULAR: Regular rate and rhythm without murmurs rubs or gallops. ABDOMINAL: Soft, nontender, nondistended, normal bowel sounds MUSCULOSKELETAL: Moves all extremities. Strength/ROM intact, No edema, No calf tenderness. NEURO: Alert. Cranial nerves II through XII intact. Grossly intact SKIN: Warm, dry. Normal Color Course Course Emergency Course: 82-year-old female presented ED for evaluation after having a ground-level resulting in a scalp injury. Patient was updated on the plan for head CT due to her being on blood thinners. All questions and concerns were addressed. No repair is needed for the posterior scalp injury. Head CT was negative for acute intracranial abnormality. Patient was up to the results of the work-up. Family was inquiring about follow-up with a neurologist and this was provided. All patient's questi
[2023-03-20] VITALS: PULSE 82; RESP 20; O2SAT 98
[2023-03-20 00:46] VITALS: PULSE 79; RESP 19; O2SAT 98
--- NOTE | 2023-03-20 01:33 | PC.NURSE ---
0130 Attempted to contact [facility] multiple times on muliple lines/numbers. Unable to reach. Reach out to another facility to attempt to reach facility. Also, reached out of [facility] and received another number. No answer.
[2023-03-20 01:50] VITALS: BP 171/106; PULSE 79; RESP 18; TEMP 36.9; O2SAT 100
== END 2023-03-20 01:57 ==
PROVIDERS: Emergency Provider Emergency Medicine; PCP Internal Medicine
DX: S00.03XA Contusion of scalp, initial encounter (principal); I48.91 Unspecified atrial fibrillation; I10 Essential (primary) hypertension; I89.0 Lymphedema, not elsewhere classified; G47.33 Obstructive sleep apnea (adult) (pediatric); M19.90 Unspecified osteoarthritis, unspecified site; Z87.891 Personal history of nicotine dependence; Z79.01 Long term (current) use of anticoagulants; W18.39XA Other fall on same level, initial encounter
CPT/HCPCS: 70450; 99284

== ENCOUNTER 2023-08-22 23:16 | Inpatient (IN) | payer MEDICARE, OTHER, SELFPAY ==
--- NOTE | ~2023-08-22 | CT_ITS ---
EXAMINATION: CT brain wo con DATE: 08/22/2023 23:56 INDICATION: Altered mental status. Fall. TECHNIQUE: Computed tomography (CT) of the head was performed without intravenous contrast. The mA wa s adjusted according to patient size. Iterative reconstruction technique was employed. The dose-lengt h product was 1210.67 mGy-cm. COMPARISON: Head CT 03/19/2023 FINDINGS: There are scattered areas of low attenuation in the cerebral white matter, which is within normal limits for the patient's age. There is no intracranial hemorrhage, acute infarction, or abnor mal intracranial mass lesion. The ventricles are normal in size. There are likely changes of ocular l ens replacement surgeries. There is posterior scalp soft tissue swelling. There is mild mucosal thick ening in the ethmoid sinuses. The mastoid air cells are normal. There is cerumen in the external yazmin tory canals. IMPRESSION: 1. Normal aging brain. Reviewed, dictated and finalized at location E. IMPRESSION: 1. Normal aging brain.
--- NOTE | ~2023-08-22 | CT_ITS ---
EXAMINATION: CT cervical spine wo con DATE: 08/22/2023 23:56 INDICATION: Back pain. Fall. TECHNIQUE: Computed tomography (CT) of the cervical spine was performed without intravenous contrast. Automated exposure control and iterative reconstruction technique were employed. The dose-length pro duct was 496.71 mGy-cm. COMPARISON: None FINDINGS: There is a 2.0 cm subcutaneous mass in the left posterior neck, likely a sebaceous cyst. Th ere is a 2.4 cm nodule in right thyroid lobe. There is 2 mm anterolisthesis of C5 on C6. Vertebral chuck dy heights are normal. There is mildly decreased disc height at C5-C6. The following disc levels are specifically discussed: C2-C3: There is mild bilateral uncovertebral joint osteoarthritis. There is severe bilateral facet blair int osteoarthritis. There is mild bilateral neural foraminal stenosis. There is no central canal sten osis. C3-C4: There is severe right and mild left uncovertebral joint osteoarthritis. There is severe bilate ral facet joint osteoarthritis. There is mild bilateral neural foraminal stenosis. There is no centra l canal stenosis. C4-C5: There is mild bilateral uncovertebral joint osteoarthritis. There is severe bilateral facet blair int osteoarthritis. There is mild bilateral neural foraminal stenosis. There is no central canal sten osis. C5-C6: There is mild bilateral uncovertebral joint osteoarthritis. There is severe bilateral facet blair int osteoarthritis. There is mild bilateral neural foraminal stenosis. There is mild central canal st enosis. C6-C7: There is no uncovertebral joint osteoarthritis. There is severe bilateral facet joint osteoart hritis. There is mild bilateral neural foraminal stenosis. There is no central canal stenosis. C7-T1: There is no uncovertebral joint osteoarthritis. There is ankylosis of the facet joints with mo derate hypertrophy. There is mild bilateral neural foraminal stenosis. There is no central canal sten osis. IMPRESSION: 1. No fracture. 2. Mild cervical spondylosis. 3. 2.4 cm right thyroid nodule. Consider thyroid ultrasound for risk stratification. Reviewed, dictated and finalized at location E. IMPRESSION: 1. No fracture. 2. Mild cervical spondylosis. 3. 2.4 cm right thyroid nodule. Consider thyroid ultrasound for risk stratifica tion.
--- NOTE | ~2023-08-22 | XR_ITS ---
EXAMINATION: XR chest 1V portable DATE: 08/23/2023 01:12 INDICATION: Chest pain. Fall. TECHNIQUE: A single frontal view of the chest was obtained. COMPARISON: Chest single view 02/04/2023, chest CT 08/23/2023 FINDINGS: There is a diffuse interstitial pattern in the lungs. Calcified right lung nodules and calc ified right hilar lymph nodes are consistent with old granulomatous disease. There is prominent extra pleural fat bilaterally. No pleural effusion or pneumothorax. Cardiomegaly is noted. IMPRESSION: 1. Diffuse interstitial pattern in the lungs, likely a combination of mild pulmonary edema and mild c hronic interstitial lung disease. 2. Cardiomegaly. Reviewed, dictated and finalized at location E. IMPRESSION: 1. Diffuse interstitial pattern in the lungs, likely a combination of mild pulm onary edema and mild chronic interstitial lung disease. 2. Cardiomegaly.
--- NOTE | ~2023-08-22 | CT_ITS ---
EXAMINATION: CT chest abdomen pelvis w con DATE: 08/23/2023 03:41 INDICATION: Total body pain. Thoracic and lumbar pain. Fall. TECHNIQUE: Computed tomography (CT) of the chest, abdomen, and pelvis was performed with 100 mL Omnip aque 350 intravenous contrast. Automated exposure control and iterative reconstruction technique were employed. The dose-length product was 1505.76 mGy-cm. COMPARISON: None FINDINGS: CHEST CT: The lungs demonstrate diffuse septal thickening. A calcified right lung nodule and calcified right hi lar and mediastinal lymph nodes are consistent with old granulomatous disease. No pleural effusion. T here is a 2.1 cm nodule in right thyroid lobe. Cardiomegaly is noted. There are coronary artery calci fications. No pericardial effusion. Aortic atherosclerosis is noted. There are bridging endplate oste ophytes at multiple levels in the spine, consistent with diffuse idiopathic skeletal hyperostosis (DI SH). There is a fracture of anterior aspect of T10 vertebral body without height loss. ABDOMEN/PELVIS CT: There is mild intrahepatic and extrahepatic biliary duct dilatation status post cholecystectomy, like ly not clinically significant given the normal liver function tests. Calcifications in the spleen ar e consistent with old granulomatous disease. The pancreas, adrenal glands, and left kidney are normal . There is an 11 mm cyst in right kidney. There is calcified atherosclerosis of the aorta and many of the other arteries. There is a stent in right external iliac vein and right common femoral vein. The re are no pathologically enlarged lymph nodes. There is no free intraperitoneal fluid. There are no d ilated loops of bowel. The appendix is normal. There is severe lumbar spondylosis. IMPRESSION: 1. Fracture of anterior aspect of T10 vertebral body without height loss. 2. 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 3. 2.1 cm thyroid nodule. Consider thyroid ultrasound for risk stratification if clinically indicated given the patient's age. Reviewed, dictated and finalized at location E. IMPRESSION: 1. Fracture of anterior aspect of T10 vertebral body without height loss. 2. Diffuse septal thickening in the lungs, likely a combination of mild pulmona ry edema and mild chronic interstitial lung disease. 3. 2.1 cm thyroid nodule. Consider thyroid ultrasound for risk stratification i f clinically indicated given the patient's age.
[2023-08-23] VITALS (30 sets, daily range): BP systolic 128–183; BP diastolic 58–153; PULSE 49–72; RESP 0–27; TEMP 35.9–36.4; O2SAT 95–100
--- NOTE | 2023-08-23 00:59 | ECG_ITS ---
Measurements Intervals [place] Rate: 63 P: WI: 0 QRS: -52 QRSD: 127 T: 88 QT: 377 QTc: 388 Interpretive Statements ATRIAL FIBRILLATION INTRAVENTRICULAR CONDUCTION DELAY LEFT ANTERIOR FASCICULAR BLOCK VOLTAGE CRITERIA FOR LVH BORDERLINE ST-T WAVE ABNORMALITY- HIGH LATERAL LEADS BASELINE ARTIFACT- I, II, III, AVR, AVL, AVF, V1-V6 ABNORMAL ECG COMPARED TO ECG 02/04/2023 17:49:16 Electronically Signed On 08-23-2023 8:05:03 CDT by Sathya Bell D.O.
[2023-08-23] MEDS: ACETAMINOPHEN 500 MG TABLET 1000 MG PO (01:21)
[2023-08-23] MEDS: HYDROmorphone HCL INJ (*CRX) 1 MG/ML SYR 0.5 MG IV PUSH (01:22)
[2023-08-23 01:27] LABS: Basophils Absolute Auto 0.1 K/mm3 (0.0-0.1); Basophils Percent Auto 0.6 % (0.2-1.2); Eosinophils Absolute Auto 0.2 K/mm3 (0-0.3); Eosinophils Percent Auto 1.9 % (0-4.4); Hematocrit 48.6 % (37.0-47.0); Hemoglobin 15.5 g/dL (12.0-15.0); Immature Granulocyte Absolute 0.05 K/mm3 (0.00-0.031); Immature Granulocyte Percent A 0.5 % (0-0.5); Lymphocytes Absolute Auto 0.93 K/mm3 (0.9-3.2); Lymphocytes Percent Auto 8.6 % (18.3-44.2); Mean Corpuscular HGB Conc 31.9 g/dl (32-36); Mean Corpuscular Hemoglobin 29.2 pg (26-34); Mean Corpuscular Volume 91.7 fl (80-100); Mean Platelet Volume 9.9 fl (7.4-10.4); Monocytes Absolute Auto 0.5 K/mm3 (0.1-0.6); Monocytes Percent Auto 4.8 % (2.6-8.5); Neutrophils Absolute Auto 9.1 K/mm3 (1.3-6.7); Neutrophils Percent Auto 83.6 % (45.5-73.1); Platelet Count Result 299 k/mm3 (150-375); Red Cell Distribution Width 14.6 % (11.5-14.5); White Blood Count 10.8 K/mm3 (4.5-10.0)
[2023-08-23 02:04] LABS: Influenza A QL RT-PCR Negative (Negative); Influenza B QL RT-PCR Negative (Negative); RSV RNA, RT-PCR Negative (Negative); SARS-CoV-2 RNA PCR Negative (Negative)
[2023-08-23 02:21] LABS: Appearance Urine Turbid (Clear); Bacteria Urine 4+ /hpf; Bilirubin Urine Negative (Negative); Blood Urine 1+ (Negative); Color Urine Yellow (Yellow); Glucose Urine UA Negative (Negative); Hyaline Casts Urine Present /lpf; Ketones Urine Negative (Negative); Leukocyte Esterase Ur 3+ LEU/UL (Negative); Need Manual Microscopic Reviewed; Nitrate Urine Positive (Negative); Non Pathogenic Casts >20; Protein Urine 1+ mg/dL (Negative); Specific Grav Ur 1.015 (1.001-1.035); Squamous Epithelial Cell Urine Few /hpf (Few); Transitional Epi Cells Urine Present /hpf (None Seen); Triple Phosphate Crystal Urine Present /hpf; WBC Urine >100 /hpf; pH Urine 7.5 (5.0-9.0)
[2023-08-23 02:24] LABS: Add Urine Microscopic? YES; Calcium Phosphate Crystals Ur Present /hpf
[2023-08-23 02:25] LABS: Calcium Oxalate Crystals Urine Present /hpf
[2023-08-23 02:31] LABS: Alanine Aminotransferase 16 U/L (6-35); Albumin Level 4.3 g/dL (3.5-5.1); Alkaline Phosphatase 81 U/L (38-126); Anion Gap 5 mmol/L (8-16); Aspartate Amino Transferase 30 U/L (14-36); Bilirubin,Total 1.3 mg/dL (0.2-1.3); Blood Urea Nitrogen 18 mg/dL (7-17); Calcium 9.4 mg/dL (8.4-10.2); Carbon Dioxide 34 mmol/L (22-30); Chloride 96 mmol/L (98-107); Estimated CRCL calculation 74 ml/min; Estimated Glomerular Filt Rate > 60; Glucose 108 mg/dL (65-110); Lipase 148 U/L (23-300); Magnesium 2.1 mg/dL (1.6-2.3); NT Pro B Type Natriuretic Pept 977 pg/mL (19.9-100); Phosphorus 3.4 mg/dL (2.5-4.5); Sodium 135 mmol/L (137-145); Troponin I < 0.012 ng/mL (0.000-0.034)
--- NOTE | 2023-08-23 02:48 | ED.GENADULT ---
HPI - General Adult General Chief complaint: Fall Stated complaint: Fall Time Seen by Provider: 08/22/23 23:43 History of Present Illness HPI narrative: Patient is a poor historian and cannot give a good interpretation of the events leading to her fall orwhat her symptoms are at this point. This is an 83-year-old female presenting ED after a fall. Patient does not remember the details of what happened. She said that she thinks that she was reaching for something when she fell backwards and struck her head. She denies loss of consciousness. She is on Eliquis for AFib. She is complaining of head and neck pain as well as lower back pain, chest and abdomen. Related Data Home Medications Medication Instructions Recorded Confirmed apixaban 5 mg tablet (Eliquis) 5 mg PO BID 02/17/21 02/04/23 calcium carbonate 500 mg calcium 500 mg PO DAILY 02/17/21 02/04/23 (1,250 mg) chewable tablet (Calcium 500) losartan 100 mg tablet 100 mg PO DAILY 02/17/21 02/04/23 mirabegron 50 mg tablet,extended 50 mg PO DAILY 02/17/21 02/04/23 release 24 hr (Myrbetriq) acetaminophen 500 mg tablet 500 mg PO Q6H PRN Pain 06/04/21 02/04/23 (Tylenol Extra Strength) diphenhydramine HCl 12.5 mg/5 mL 12.5 mg PO QHS PRN Sleep 06/04/21 02/04/23 oral elixir atorvastatin 20 mg tablet 20 mg PO DAILY 02/04/23 02/04/23 escitalopram oxalate 10 mg tablet 10 mg PO DAILY 02/04/23 02/04/23 Allergies Allergy/AdvReac Type Severity Reaction Status Date / Time No Known Allergies Allergy Verified 08/23/23 00:16 [facility] Past Medical History Medical History RUPERT positive Arthritis Atrial fibrillation Encounter for medication management Generalized osteoarthritis of multiple sites Hypertension Inflammatory arthritis Lymphedema CHRIS (obstructive sleep apnea) Family History Family History Father Cerebrovascular accident Social History Social History Smoking packs per day: 0.5 Smoking cigarettes per day: 10.0 Years smoked: 30 Smoking pack-years: 15.00 Smoking status: Former smoker Tobacco type: cigarettes Alcohol intake: current Substance use: never Substance use type: does not use Lack of Transportation: No Lack of Food: Never True Current Housing: I Have Housing Concerned About Future Housing: No Difficulty Paying Gas/Electric Bills: No Difficulty Paying for Meds: No Currently Unemployed: No Education: High School Diploma/GED Difficulty w/ Childcare or Family Care: No Spiritual care concerns: No Exam Narrative: APPEARANCE: No apparent distress. Head: atraumatic. EYES: EOMI, NOSE: Atraumatic NECK: Trachea midline RESPIRATORY: No increased rate of breathing, scattered crackles CARDIOVASCULAR: RRR, pitting edema of the lower extremities ABDOMINAL: Non-distended MUSCULOSKELETAl: No obvious deformities, patient winces to palpation pretty much anywhere on her chest back and abdomen. No obvious areas deformity or bruising. NEURO: Alert. Moving 4/4 extremities SKIN:: Warm, dry. Normal color PSYCHIATRIC: Normal affect Course Vital Signs Vital signs: Vital Signs Pulse Oximetry 96 08/23/23 00:05 Pulse Rate 59 L 08/23/23 05:45 Respiratory Rate 14 08/23/23 05:45 Blood Pressure 150/82 H 08/23/23 01:17 Pulse Oximetry 97 08/23/23 05:00 Oxygen Delivery Room Air 08/23/23 00:11 Medical Decision Making [facility] Narrative Medical decision making narrative: -Course: 83-year-old female presenting after a fall on thinners. Patient is a poor historian so metabolic workup has been ordered as well. Additionally on physical exam she flinches to pretty much any palpation of her torso. CT chest abdomen pelvis has been ordered. workup was significant for a fracture anterior aspect of T10 without height lo
[2023-08-23] MEDS: FUROSEMIDE INJ 40 MG/4 ML VIAL IV PUSH (03:26)
--- NOTE | 2023-08-23 03:54 | PC.NURSE ---
This RN placed a purewick external catheter for patient due to lack of mobility and patient incontinence.
[2023-08-23 04:47] LABS: Troponin I < 0.012 ng/mL (0.000-0.034)
--- NOTE | 2023-08-23 17:04 | PM.IMHP ---
H&P: HPI History of Present Illness Date/Time: 08/23/23 17:04 Chief Complaint: fall Narrative: 83-year-old female with past medical history significant for morbid obesity, atrial fibrillation, rate controlled anticoagulated, chronic lymphedema, generalized osteoarthritis, hypertension, obstructive sleep apnea. Poor historian states she fell backwards hit her head and her low back not a clear history. Pt had CT Head Cspine and CT CHEST, abdomen and pelvis 1. Fracture of anterior aspect of T10 vertebral body without height loss. 2. Diffuse septal thickening in the lungs, likely a combination of mild pulmonary edema and mild chronic interstitial lung disease. 3. 2.1 cm thyroid nodule. Consider thyroid ultrasound for risk stratification if clinically indicated given the patient's age. P found to have T10 compression fracture, uti and mild chf excerbation Review of Systems Review of Systems: ongoing low back pain PMFSH Past Medical History Medical History RUPERT positive Arthritis Atrial fibrillation Encounter for medication management Generalized osteoarthritis of multiple sites Hypertension Inflammatory arthritis Lymphedema CHRIS (obstructive sleep apnea) Family History Family History Father Cerebrovascular accident Social History Social History Smoking packs per day: 0.5 Smoking cigarettes per day: 10.0 Years smoked: 30 Smoking pack-years: 15.00 Smoking status: Former smoker Tobacco type: cigarettes Second hand tobacco smoke exposure: No Alcohol intake: never Substance use: never Substance use type: does not use Lack of Transportation: No Lack of Food: Never True Current Housing: I Have Housing Concerned About Future Housing: No Difficulty Paying Gas/Electric Bills: No Difficulty Paying for Meds: No Currently Unemployed: No Education: High School Diploma/GED Difficulty w/ Childcare or Family Care: No Spiritual care concerns: No Meds Home Medications and Allergies Home Medications Medication Instructions Recorded Confirmed Type apixaban 5 mg tablet (Eliquis) 5 mg PO BID 02/17/21 08/23/23 History calcium carbonate 500 mg calcium 500 mg PO DAILY 02/17/21 08/23/23 History (1,250 mg) chewable tablet (Calcium 500) losartan 100 mg tablet 100 mg PO DAILY 02/17/21 08/23/23 History acetaminophen 500 mg tablet 500 mg PO Q6H PRN Pain 06/04/21 08/23/23 History (Tylenol Extra Strength) atorvastatin 20 mg tablet 20 mg PO DAILY 02/04/23 08/23/23 History escitalopram oxalate 10 mg tablet 10 mg PO DAILY 02/04/23 08/23/23 History Allergies Allergy/AdvReac Type Severity Reaction Status Date / Time No Known Allergies Allergy Verified 08/23/23 00:16 Vital Signs Vital Signs - 24 hr 08/23/23 00:11 08/23/23 00:17 08/23/23 00:05 Temperature Pulse Rate 61 59 L Respiratory Rate 10 L 15 Blood Pressure 159/112 H 161/97 H Pulse Oximetry 100 99 96 Oxygen Delivery Room Air 08/23/23 00:06 08/23/23 00:15 08/23/23 00:17 Temperature Pulse Rate 71 63 55 L Respiratory Rate 0 L 14 12 Blood Pressure 159/112 H 161/97 H Pulse Oximetry 99 99 Oxygen Delivery 08/23/23 00:30 08/23/23 00:32 08/23/23 00:45 Temperature Pulse Rate 63 61 59 L Respiratory Rate 15 17 14 Blood Pressure 158/83 H Pulse Oximetry 96 97 98 Oxygen Delivery 08/23/23 00:47 08/23/23 01:00 08/23/23 01:01 Temperature Pulse Rate 57 L 67 66 Respiratory Rate 16 27 H 22 H Blood Pressure 178/77 H 183/153 H Pulse Oximetry 98 98 Oxygen Delivery 08/23/23 01:15 08/23/23 01:17 08/23/23 01:30 Temperature Pulse Rate 64 65 72 Respiratory Rate 22 H 14 15 Blood Pressure 150/82 H Pulse Oximetry 100 Oxygen Delivery 08/23/23 01:45 08/23/23 03:00 08/23/23 03:40 Temperature Pu
[2023-08-23] MEDS: ATORVASTATIN 20 MG TABLET PO (22:32)
[2023-08-23] MEDS: traMADol HCL (*CRX) 25 MG TABLET PO (22:32)
[2023-08-24] VITALS (10 sets, daily range): BP systolic 92–146; BP diastolic 62–81; PULSE 61–74; RESP 16–20; TEMP 36–36.6; O2SAT 95–98
[2023-08-24 08:17] LABS: Anion Gap 4 mmol/L (8-16); Blood Urea Nitrogen 12 mg/dL (7-17); Carbon Dioxide 33 mmol/L (22-30); Chloride 97 mmol/L (98-107); Estimated CRCL calculation 87 ml/min; Estimated Glomerular Filt Rate > 60; Glucose 96 mg/dL (65-110); Sodium 134 mmol/L (137-145)
[2023-08-24 08:26] LABS: NT Pro B Type Natriuretic Pept 832 pg/mL (19.9-100)
[2023-08-24] MEDS: LOSARTAN POTASSIUM 100 MG TABLET PO (09:16)
[2023-08-24] MEDS: FUROSEMIDE 40 MG TABLET PO (09:16)
[2023-08-24] MEDS: ESCITALOPRAM OXALATE 10 MG TABLET 20 MG PO (09:16)
[2023-08-24] MEDS: LIDOCAINE 5% PATCH 1 PATCH TRANSDERM (09:17)
--- NOTE | 2023-08-24 11:40 | WPDNEUROSGCN ---
Assessment and Plan Assessment and plan (1) Compression fracture of T10 vertebra: Code(s): S22.070A - Wedge compression fracture of T9-T10 vertebra, initial encounter for closed fracture Status: Acute Plan Patient is an 83 year old female with a ground level fall anticoaulgated at baseline who struck her head Imaging of head and neck are negative for acute injuries. Radiologst comments on fracture at T10 anteriorly but there is no compression and no suggestion of instability. I do not see a need for bracing or surgical intervention. Would manage patient's discomfort symtpoamtically at this point. Agree with holding anticoagulation for 48-72 hours given that patient struck her head, but no need to hold anticoagulation in the longer term Please call with any further questions Consult date: 08/24/23 HPI: Janie Jorge is a 83 year old female with past medical history significant for morbid obesity, atrial fibrillation, rate controlled anticoagulated, chronic lymphedema, generalized osteoarthritis, hypertension, obstructive sleep apnea. She is a poor historian but states she fell backwards hit her head and her low back not a clear history. In the ED she underwent CT of the Head and Cervical spine which showed no acute changes. A CT of the abdomen / pelvis was suggested, per the report of a fracture anteriorly but I do not visualize a clear fracture on the imaging studies. This may be a small fracture through an anterior osteophyte. There is no loss of height and no evidence of fracture through the middle or posterior columns on CT Anticoagulation was held PMFSH Past Medical History Medical History RUPERT positive Arthritis Atrial fibrillation Encounter for medication management Generalized osteoarthritis of multiple sites Hypertension Inflammatory arthritis Lymphedema CHRIS (obstructive sleep apnea) Family History Family History Father Cerebrovascular accident Social History Social History Smoking packs per day: 0.5 Smoking cigarettes per day: 10.0 Years smoked: 30 Smoking pack-years: 15.00 Smoking status: Former smoker Tobacco type: cigarettes Second hand tobacco smoke exposure: No Alcohol intake: never Substance use: never Substance use type: does not use Lack of Transportation: No Lack of Food: Never True Current Housing: I Have Housing Concerned About Future Housing: No Difficulty Paying Gas/Electric Bills: No Difficulty Paying for Meds: No Currently Unemployed: No Education: High School Diploma/GED Difficulty w/ Childcare or Family Care: No Spiritual care concerns: No Meds Home Medications and Allergies Home Medications Medication Instructions Recorded Confirmed Type apixaban 5 mg tablet (Eliquis) 5 mg PO BID 02/17/21 08/23/23 History calcium carbonate 500 mg calcium 500 mg PO DAILY 02/17/21 08/23/23 History (1,250 mg) chewable tablet (Calcium 500) losartan 100 mg tablet 100 mg PO DAILY 02/17/21 08/23/23 History acetaminophen 500 mg tablet 500 mg PO Q6H PRN Pain 06/04/21 08/23/23 History (Tylenol Extra Strength) atorvastatin 20 mg tablet 20 mg PO HS 02/04/23 08/23/23 History escitalopram oxalate 10 mg tablet 20 mg PO DAILY 02/04/23 08/23/23 History Allergies Allergy/AdvReac Type Severity Reaction Status Date / Time No Known Allergies Allergy Verified 08/23/23 00:16 Vital Signs Vital Signs - 24 hr 08/23/23 14:00 08/23/23 12:00 08/23/23 16:00 Temperature 97.5 F L Pulse Rate 67 58 L 67 Respiratory Rate 16 Blood Pressure 145/78 H Pulse Oximetry 100 Oxygen Delivery 08/23/23 21:15 08/23/23 20:00 08/23/23 20:00 Temperature 96.7 F L Pulse Rate 68 64 Respiratory Rate 18 Blood Pressure 128/58 L Pulse Oximetry 96 Oxygen Delivery Room Air
--- NOTE | 2023-08-24 14:06 | PCPTNOTE ---
Per RN who spoke to with hospitalist, pt is able to participate in skilled therapy despite bedrest orders. Attempted to contact hospitalist, but did not get an answer from hospitalist.
--- NOTE | 2023-08-24 15:09 | PM.IMPN ---
Progress Note: A&P Assessment and Plan (1) Generalized weakness: Code(s): R53.1 - Weakness Status: Acute Assessment and Plan: PT/ OT Pain control Can ambulate gently (2) Congestive heart failure (CHF): Qualifiers: Heart failure chronicity: acute Heart failure type: unspecified Qualified Code(s): I50.9 - Heart failure, unspecified Code(s): I50.9 - Heart failure, unspecified Status: Acute Assessment and Plan: continue to diuresis in the hospital pt not needing oxygen (3) Recurrent falls: Code(s): R29.6 - Repeated falls Status: Acute Assessment and Plan: PT/ OT pain control Pt may benefit from rehab (4) Impaired mobility and ADLs: Code(s): Z74.09 - Other reduced mobility; Z78.9 - Other specified health status Status: Acute (5) Acute UTI: Code(s): N39.0 - Urinary tract infection, site not specified Status: Acute Assessment and Plan: Ua is positive await UC result continue iv rocephin for now Subjective Date/time seen: 08/24/23 15:09 Interval history: 83-year-old female with past medical history significant for morbid obesity, atrial fibrillation, rate controlled anticoagulated, chronic lymphedema, generalized osteoarthritis, hypertension, obstructive sleep apnea. Poor historian states she fell backwards hit her head and her low back not a clear history. Seen by neurosurgery ok to hold eliquis and anticoagulation for a few days ct head was nl after fall scalp hematoma improving T fracture not instable pt has try gentle ambulation Review of Systems Review of Systems: mild low back pain Exam Const: General: cooperative and overweight; No in distress Nutritional Appearance: overweight Orientation/consciousness: oriented to person HENMT: Head: normal to inspection Resp: Effort & Inspection: no respiratory distress Auscultation: no rhonchi and no wheezes Cardio: Rate: regular rate Rhythm: regular rhythm GI: Inspection: normal to inspection Auscultation: normal bowel sounds Neuro: General: oriented to person Objective Data Vital Signs Vital Signs: Vital Signs - 24 hr 08/23/23 16:00 08/23/23 21:15 08/23/23 20:00 Temperature 35.9 C L Pulse Rate 67 68 Respiratory Rate 18 Blood Pressure 128/58 L Pulse Oximetry 96 Oxygen Delivery Room Air 08/23/23 20:00 08/24/23 00:00 08/24/23 04:00 Temperature Pulse Rate 64 72 65 Respiratory Rate Blood Pressure Pulse Oximetry Oxygen Delivery 08/24/23 05:52 08/24/23 14:07 Temperature 36.0 C L Pulse Rate 74 Respiratory Rate 20 Blood Pressure 146/81 H Pulse Oximetry 97 Oxygen Delivery Room Air Intake/Output Intake/Output: Intake & Output 08/21/23 08/22/23 08/23/23 08/24/23 23:59 23:59 23:59 23:59 Intake Total 526 100 Output Total 300 350 Balance 226 -250 Meds/Results Medications: Active Medications Generic Name Dose Route Start Last Admin Trade Name Freq PRN Reason Stop Dose Admin Acetaminophen 500 mg 08/23/23 17:14 Acetaminophen 500 Mg Tablet PO Q6H PRN Pain Rated 1-3 Atorvastatin Calcium 20 mg 08/23/23 21:59 08/23/23 22:32 Atorvastatin 20 Mg Tablet PO 20 mg HS AMILCAR Administration Calcium Carbonate 500 mg 08/24/23 09:00 08/24/23 09:16 Calcium Carbonate (Tums) 500 Mg (200 Mg Elemental) PO Not Given DAILY AMILCAR Escitalopram Oxalate 20 mg 08/24/23 09:00 08/24/23 09:16 Escitalopram Oxalate 10 Mg Tablet PO 20 mg DAILY AMILCAR Administration Furosemide 40 mg 08/24/23 09:00 08/24/23 09:16 Furosemide 40 Mg Tablet PO 40 mg DAILY AMILCAR Administration Ceftriaxone Sodium 1 gm in 50 mls @ 100 mls/hr 08/24/23 06:00 08/24/23 05:54 Rocephin 1 Gm/Ns 50 Ml IVPB 100 mls/hr Q24H AMILCAR Administration Lidocaine 1 patch 08/24/23 09:00 08/24/23 09:17 Lidocaine 5% Patch TRANSDERM 1 patch DAILY AMILCAR Administratio
[2023-08-24] MEDS: POTASSIUM CHLORIDE 20 MEQ PACKET (FOR LIQUID) 40 MEQ PO (17:00)
[2023-08-24] MEDS: ATORVASTATIN 20 MG TABLET PO (20:17)
[2023-08-24] MEDS: traMADol HCL (*CRX) 25 MG TABLET PO (20:17)
[2023-08-25] VITALS (9 sets, daily range): BP systolic 93–161; BP diastolic 50–64; PULSE 60–103; RESP 18–20; TEMP 35.7–36.1; O2SAT 97–100
[2023-08-25 07:23] LABS: Hematocrit 42.7 % (37.0-47.0); Hemoglobin 13.8 g/dL (12.0-15.0); Mean Corpuscular HGB Conc 32.3 g/dl (32-36); Mean Corpuscular Hemoglobin 29.6 pg (26-34); Mean Corpuscular Volume 91.4 fl (80-100); Mean Platelet Volume 10.2 fl (7.4-10.4); Platelet Count Result 250 k/mm3 (150-375); Red Blood Count 4.67 M/mm3 (4.2-5.4); Red Cell Distribution Width 14.6 % (11.5-14.5); White Blood Count 6.5 K/mm3 (4.5-10.0)
[2023-08-25 07:38] LABS: Anion Gap 4 mmol/L (8-16); Blood Urea Nitrogen 14 mg/dL (7-17); Carbon Dioxide 33 mmol/L (22-30); Chloride 97 mmol/L (98-107); Estimated CRCL calculation 74 ml/min; Estimated Glomerular Filt Rate > 60; Glucose 90 mg/dL (65-110); Potassium 3.5 mmol/L (3.4-5.0); Sodium 134 mmol/L (137-145)
[2023-08-25] MEDS: POTASSIUM CHLORIDE 20 MEQ PACKET (FOR LIQUID) 40 MEQ PO ×2 (08:30→17:23)
[2023-08-25] MEDS: traMADol HCL (*CRX) 25 MG TABLET PO ×2 (08:31→17:23)
[2023-08-25] MEDS: LOSARTAN POTASSIUM 100 MG TABLET PO (08:31)
[2023-08-25] MEDS: ESCITALOPRAM OXALATE 10 MG TABLET 20 MG PO (08:31)
[2023-08-25] MEDS: FUROSEMIDE 40 MG TABLET PO (08:31)
[2023-08-25] MEDS: CALCIUM CARBONATE (TUMS) 500 MG (200 MG ELEMENTAL) PO (08:31)
[2023-08-25] MEDS: LIDOCAINE 5% PATCH 1 PATCH TRANSDERM (08:34)
--- NOTE | 2023-08-25 10:52 | P.CDI_ITS ---
CDI Query Clarification Request CHF noted in the assessment and plan. Patient receiving Lasix. Pulmonary edema noted on the 08/23/23 chest xray. Elevated BNP on 08/24/23 lab work. Please specify type and acuity of heart failure if known. * Acute * Chronic * Acute on Chronic * Unknown * Systolic * Diastolic * Combined Systolic and Diastolic * Unknown <Janene Simon RN - Last Filed: 08/25/23 10:55> Clarified Diagnosis Clarified Diagnosis: acute on chronic systolic CHF <Dimple Gonzales MD - Last Filed: 08/25/23 16:14>
--- NOTE | 2023-08-25 14:25 | PM.IMPN ---
Progress Note: A&P Assessment and Plan (1) Generalized weakness: Code(s): R53.1 - Weakness Status: Acute Assessment and Plan: PT/ OT Pain control Can ambulate gently (2) Congestive heart failure (CHF): Qualifiers: Heart failure chronicity: acute Heart failure type: unspecified Qualified Code(s): I50.9 - Heart failure, unspecified Code(s): I50.9 - Heart failure, unspecified Status: Acute Assessment and Plan: continue to diuresis in the hospital pt not needing oxygen (3) Recurrent falls: Code(s): R29.6 - Repeated falls Status: Acute Assessment and Plan: PT/ OT pain control Pt may benefit from rehab DC back to her facility on Monday or Monday (4) Impaired mobility and ADLs: Code(s): Z74.09 - Other reduced mobility; Z78.9 - Other specified health status Status: Acute (5) Acute UTI: Code(s): N39.0 - Urinary tract infection, site not specified Status: Acute Assessment and Plan: UA is positive Await UC result full report Continue IV rocephin day 2 for now Subjective Date/time seen: 08/25/23 14:25 Interval history: 83-year-old female with past medical history significant for morbid obesity, atrial fibrillation, rate controlled anticoagulated, chronic lymphedema, generalized osteoarthritis, hypertension, obstructive sleep apnea. Poor historian states she fell backwards hit her head and her low back not a clear history. Seen by neurosurgery ok to hold eliquis and anticoagulation for a few days ct head was nl after fall scalp hematoma improving T fracture not instable pt has try gentle ambulation doing better up walking with walker Review of Systems Review of Systems: mild low back pain Exam Const: General: cooperative and overweight; No in distress Nutritional Appearance: overweight Orientation/consciousness: oriented to person HENMT: Head: normal to inspection Resp: Effort & Inspection: no respiratory distress Auscultation: no rhonchi and no wheezes Cardio: Rate: regular rate Rhythm: regular rhythm GI: Inspection: normal to inspection Auscultation: normal bowel sounds Neuro: General: oriented to person Objective Data Vital Signs Vital Signs: Vital Signs - 24 hr 08/24/23 15:49 08/24/23 16:00 08/24/23 21:56 Temperature 36.2 C L Pulse Rate 65 62 Respiratory Rate 20 Blood Pressure 92/67 L Pulse Oximetry 95 98 Oxygen Delivery Room Air 08/24/23 20:00 08/24/23 20:00 08/25/23 00:00 Temperature Pulse Rate 62 72 Respiratory Rate Blood Pressure Pulse Oximetry Oxygen Delivery Room Air 08/25/23 04:00 08/25/23 06:00 08/25/23 08:40 Temperature 36.1 C L Pulse Rate 69 66 Respiratory Rate 20 Blood Pressure 161/64 H Pulse Oximetry 97 Oxygen Delivery Room Air Intake/Output Intake/Output: Intake & Output 08/22/23 08/23/23 08/24/23 08/25/23 23:59 23:59 23:59 23:59 Intake Total 526 100 458 Output Total 300 950 175 Balance 226 -850 283 Meds/Results Medications: Active Medications Generic Name Dose Route Start Last Admin Trade Name Freq PRN Reason Stop Dose Admin Acetaminophen 500 mg 08/23/23 17:14 Acetaminophen 500 Mg Tablet PO Q6H PRN Pain Rated 1-3 Atorvastatin Calcium 20 mg 08/23/23 21:59 08/24/23 20:17 Atorvastatin 20 Mg Tablet PO 20 mg HS AMILCAR Administration Calcium Carbonate 500 mg 08/24/23 09:00 08/25/23 08:31 Calcium Carbonate (Tums) 500 Mg (200 Mg Elemental) PO 500 mg DAILY AMILCAR Administration Escitalopram Oxalate 20 mg 08/24/23 09:00 08/25/23 08:31 Escitalopram Oxalate 10 Mg Tablet PO 20 mg DAILY AMILCAR Administration Furosemide 40 mg 08/24/23 09:00 08/25/23 08:31 Furosemide 40 Mg Tablet PO 40 mg DAILY AMILCAR Administration Ceftriaxone Sodium 1 gm in 50 mls @ 100 mls/hr 08/24/23 06:00 08/25/23 05:15 Rocephin 1 Gm/Ns 50 Ml IVPB 100 mls/h
[2023-08-25] MEDS: APIXABAN 5 MG TABLET PO (17:23)
[2023-08-25] MEDS: ACETAMINOPHEN 500 MG TABLET PO (21:01)
[2023-08-25] MEDS: ATORVASTATIN 20 MG TABLET PO (21:01)
[2023-08-26] VITALS (7 sets, daily range): BP systolic 136–138; BP diastolic 57–101; PULSE 52–96; RESP 18–20; TEMP 35.9–36.4; O2SAT 98
[2023-08-26] MEDS: CALCIUM CARBONATE (TUMS) 500 MG (200 MG ELEMENTAL) PO (08:44)
[2023-08-26] MEDS: POTASSIUM CHLORIDE 20 MEQ PACKET (FOR LIQUID) 40 MEQ PO ×2 (08:44→17:39)
[2023-08-26] MEDS: LOSARTAN POTASSIUM 100 MG TABLET PO (08:45)
[2023-08-26] MEDS: APIXABAN 5 MG TABLET PO ×2 (08:45→17:39)
[2023-08-26] MEDS: FUROSEMIDE 40 MG TABLET PO (08:45)
[2023-08-26] MEDS: traMADol HCL (*CRX) 25 MG TABLET PO (08:45)
[2023-08-26] MEDS: ESCITALOPRAM OXALATE 10 MG TABLET 20 MG PO (08:45)
[2023-08-26 09:15] LABS: Hematocrit 43.4 % (37.0-47.0); Hemoglobin 13.7 g/dL (12.0-15.0); Mean Corpuscular HGB Conc 31.6 g/dl (32-36); Mean Corpuscular Hemoglobin 29.1 pg (26-34); Mean Corpuscular Volume 92.3 fl (80-100); Mean Platelet Volume 10.2 fl (7.4-10.4); Platelet Count Result 251 k/mm3 (150-375); Red Cell Distribution Width 14.6 % (11.5-14.5); White Blood Count 5.2 K/mm3 (4.5-10.0)
[2023-08-26 09:24] LABS: Anion Gap 4 mmol/L (8-16); Blood Urea Nitrogen 18 mg/dL (7-17); Calcium 9.2 mg/dL (8.4-10.2); Carbon Dioxide 33 mmol/L (22-30); Chloride 98 mmol/L (98-107); Estimated CRCL calculation 64 ml/min; Estimated Glomerular Filt Rate > 60; Glucose 87 mg/dL (65-110); Potassium 4.3 mmol/L (3.4-5.0); Sodium 135 mmol/L (137-145)
--- NOTE | 2023-08-26 15:06 | PM.IMPN ---
Progress Note: A&P Assessment and Plan (1) Acute UTI: Code(s): N39.0 - Urinary tract infection, site not specified Status: Acute Assessment and Plan: Proteus mirabilis sensitive to ceftriaxone, sulfa, Cipro, and Augmentin Ceftriaxone day 3 on 08/26/23 (2) CHF (congestive heart failure): Code(s): I50.9 - Heart failure, unspecified Status: Acute Assessment and Plan: Clinically stable (3) Generalized weakness: Code(s): R53.1 - Weakness Status: Acute Assessment and Plan: Multifactorial with acute infection and deconditioning being major factors Continue PT/OT Treat infection Per CC plan is for AL to re-evaluate her 08/28/23 (4) Atrial fibrillation: Code(s): I48.91 - Unspecified atrial fibrillation Status: Chronic Assessment and Plan: Clinically stable (5) Hypertension: Code(s): I10 - Essential (primary) hypertension Status: Chronic Subjective Date/time seen: 08/26/23 15:06 Interval history: Tolerating diet. Denied abdominal pain. Still weak. S pain or shortness of breath or swelling. No GI or issues Review of Systems Review of Systems: All systems reviewed & are unremarkable except as noted in HPI and below Exam Narrative: HEENT: PERRL, sclerae nonicteric, pharyngeal mucosa pink and intact NECK: No JVD, adenopathy, or thyromegaly CHEST: Clear to auscultation. Normal effort. HEART: NL S1/S2, regular, no murmur ABDOMEN: BS+, soft, nontender, no mass, no bruits EXTREMITIES: No cyanosis, edema, or clubbing NEUROLOGIC: CN intact and symmetric to inspection. MUSCULOSKELETAL: Tone and strength symmetric. PSYCH: Alert. Oriented to person, place, and time. Objective Data Vital Signs Vital Signs: Vital Signs - 24 hr 08/25/23 16:00 08/25/23 22:00 08/25/23 20:00 Temperature 96.3 F L Pulse Rate 73 60 Respiratory Rate 18 Blood Pressure 93/56 L Pulse Oximetry 100 Oxygen Delivery Room Air 08/25/23 20:00 08/26/23 00:00 08/26/23 06:00 Temperature 96.7 F L Pulse Rate 62 67 52 L Respiratory Rate 20 Blood Pressure 136/57 L Pulse Oximetry 98 Oxygen Delivery 08/26/23 08:45 Temperature Pulse Rate Respiratory Rate Blood Pressure Pulse Oximetry Oxygen Delivery Room Air Intake/Output Intake/Output: Intake & Output 08/23/23 08/24/23 08/25/23 08/26/23 23:59 23:59 23:59 23:59 Intake Total 526 100 576 100 Output Total 300 950 175 750 Balance 226 -850 401 -650 Meds/Results Medications: Active Medications Generic Name Dose Route Start Last Admin Trade Name Freq PRN Reason Stop Dose Admin Acetaminophen 500 mg 08/23/23 17:14 08/25/23 21:01 Acetaminophen 500 Mg Tablet PO 500 mg Q6H PRN Administration Pain Rated 1-3 Apixaban 5 mg 08/25/23 17:00 08/26/23 08:45 Apixaban 5 Mg Tablet PO 5 mg BID AMILCAR Administration Atorvastatin Calcium 20 mg 08/23/23 21:59 08/25/23 21:01 Atorvastatin 20 Mg Tablet PO 20 mg HS AMILCAR Administration Calcium Carbonate 500 mg 08/24/23 09:00 08/26/23 08:44 Calcium Carbonate (Tums) 500 Mg (200 Mg Elemental) PO 500 mg DAILY AMILCAR Administration Escitalopram Oxalate 20 mg 08/24/23 09:00 08/26/23 08:45 Escitalopram Oxalate 10 Mg Tablet PO 20 mg DAILY AMILCAR Administration Furosemide 40 mg 08/24/23 09:00 08/26/23 08:45 Furosemide 40 Mg Tablet PO 40 mg DAILY AMILCAR Administration Ceftriaxone Sodium 1 gm in 50 mls @ 100 mls/hr 08/24/23 06:00 08/26/23 05:47 Rocephin 1 Gm/Ns 50 Ml IVPB 100 mls/hr Q24H AMILCAR Administration Lidocaine 1 patch 08/24/23 09:00 08/26/23 08:45 Lidocaine 5% Patch TRANSDERM 1 patch DAILY AMILCAR Administration Losartan Potassium 100 mg 08/24/23 09:00 08/26/23 08:45 Losartan Potassium 100 Mg Tablet PO 100 mg DAILY AMILCAR Administration Potassium Chloride 40 meq 08/24/23 17:00 08/26/23 08:44 Potassium Chloride 20 Meq Packet (For
[2023-08-26] MEDS: ATORVASTATIN 20 MG TABLET PO (20:20)
--- NOTE | 2023-08-27 01:03 | PC.NURSE ---
Daylight Savings Time For Daylight Savings Time Ending in the Fall - Clocks are moved back. For Daylight Savings Time Beginning in the Spring - Clocks are moved ahead. For [facility], the time of change occurs at 0200 hrs. Time is taken from the medical observer. This entry on the patient's chart recognizes the change in time reflected during documentation. Example: 2 entries for vital signs may be charted for 0200 hrs.
[2023-08-27 06:00] VITALS: BP 132/66; PULSE 63; RESP 20; TEMP 36.6; O2SAT 97
[2023-08-27 08:00] VITALS: PULSE 63; RESP 20; O2SAT 97
[2023-08-27] MEDS: FUROSEMIDE 40 MG TABLET PO (09:02)
[2023-08-27] MEDS: ESCITALOPRAM OXALATE 10 MG TABLET 20 MG PO (09:02)
[2023-08-27] MEDS: POTASSIUM CHLORIDE 20 MEQ PACKET (FOR LIQUID) 40 MEQ PO ×2 (09:02→16:40)
[2023-08-27] MEDS: APIXABAN 5 MG TABLET PO ×2 (09:02→16:40)
[2023-08-27] MEDS: LIDOCAINE 5% PATCH 1 PATCH TRANSDERM (09:02)
[2023-08-27] MEDS: LOSARTAN POTASSIUM 100 MG TABLET PO (09:02)
--- NOTE | 2023-08-27 12:38 | PM.IMPN ---
Progress Note: A&P Assessment and Plan (1) Acute UTI: Code(s): N39.0 - Urinary tract infection, site not specified Status: Acute Assessment and Plan: Proteus mirabilis sensitive to ceftriaxone, sulfa, Cipro, and Augmentin Ceftriaxone day 5 on 08/27/23 (2) CHF (congestive heart failure): Code(s): I50.9 - Heart failure, unspecified Status: Acute Assessment and Plan: Clinically stable (3) Generalized weakness: Code(s): R53.1 - Weakness Status: Acute Assessment and Plan: Multifactorial with acute infection and deconditioning being major factors Continue PT/OT Treat infection Per CC plan is for AL to re-evaluate her 08/28/23 (4) Atrial fibrillation: Code(s): I48.91 - Unspecified atrial fibrillation Status: Chronic Assessment and Plan: Clinically stable (5) Hypertension: Code(s): I10 - Essential (primary) hypertension Status: Chronic Assessment and Plan: 08/27/2023 control adequate Subjective Date/time seen: 08/27/23 12:38 Interval history: Tolerating diet. Denied abdominal pain. Still diffusely weak. No chest pain or shortness of breath or swelling. No GI or issues. No bleeding. Review of Systems Review of Systems: All systems reviewed & are unremarkable except as noted in HPI and below Exam Narrative: HEENT: PERRL, sclerae nonicteric, pharyngeal mucosa pink and intact NECK: No JVD, adenopathy, or thyromegaly CHEST: Clear to auscultation. Normal effort. HEART: NL S1/S2, regular, no murmur ABDOMEN: BS+, soft, nontender, no mass, no bruits EXTREMITIES: No cyanosis, edema, or clubbing NEUROLOGIC: CN intact and symmetric to inspection. MUSCULOSKELETAL: Tone and strength symmetric. PSYCH: Alert. Oriented to person, place, and time. Objective Data Vital Signs Vital Signs: Vital Signs - 24 hr 08/26/23 14:00 08/26/23 16:00 08/26/23 22:00 Temperature 97.6 F 97.6 F Pulse Rate 62 53 L 61 Respiratory Rate 18 20 Blood Pressure 138/101 H 138/82 Pulse Oximetry 98 98 08/27/23 06:00 Temperature 97.9 F Pulse Rate 63 Respiratory Rate 20 Blood Pressure 132/66 Pulse Oximetry 97 Intake/Output Intake/Output: Intake & Output 08/24/23 08/25/23 08/26/23 08/27/23 23:59 23:59 23:59 22:59 Intake Total 100 576 510 200 Output Total 208 983 6114 500 Balance -850 401 -1640 -300 Meds/Results Medications: Active Medications Generic Name Dose Route Start Last Admin Trade Name Freq PRN Reason Stop Dose Admin Acetaminophen 500 mg 08/23/23 17:14 08/25/23 21:01 Acetaminophen 500 Mg Tablet PO 500 mg Q6H PRN Administration Pain Rated 1-3 Apixaban 5 mg 08/25/23 17:00 08/27/23 09:02 Apixaban 5 Mg Tablet PO 5 mg BID AMILCAR Administration Atorvastatin Calcium 20 mg 08/23/23 21:59 08/26/23 20:20 Atorvastatin 20 Mg Tablet PO 20 mg HS AMILCAR Administration Calcium Carbonate 500 mg 08/24/23 09:00 08/27/23 09:04 Calcium Carbonate (Tums) 500 Mg (200 Mg Elemental) PO Not Given DAILY AMILCAR Escitalopram Oxalate 20 mg 08/24/23 09:00 08/27/23 09:02 Escitalopram Oxalate 10 Mg Tablet PO 20 mg DAILY AMILCAR Administration Furosemide 40 mg 08/24/23 09:00 08/27/23 09:02 Furosemide 40 Mg Tablet PO 40 mg DAILY AMILCAR Administration Ceftriaxone Sodium 1 gm in 50 mls @ 100 mls/hr 08/24/23 06:00 08/27/23 06:36 Rocephin 1 Gm/Ns 50 Ml IVPB 100 mls/hr Q24H AMILCAR Administration Lidocaine 1 patch 08/24/23 09:00 08/27/23 09:02 Lidocaine 5% Patch TRANSDERM 1 patch DAILY AMILCAR Administration Losartan Potassium 100 mg 08/24/23 09:00 08/27/23 09:02 Losartan Potassium 100 Mg Tablet PO 100 mg DAILY AMILCAR Administration Potassium Chloride 40 meq 08/24/23 17:00 08/27/23 09:02 Potassium Chloride 20 Meq Packet (For Liquid) PO 40 meq BID AMILCAR Administration Tramadol HCl 25 mg 08/23/23 17:16 08/26/23 08:45 Tramadol Hcl (*Crx)
[2023-08-27 14:00] VITALS: BP 138/71; PULSE 61; RESP 18; TEMP 36.9; O2SAT 98
[2023-08-27 20:42] VITALS: BP 159/68; PULSE 62; RESP 16; TEMP 36.2; O2SAT 98
[2023-08-27] MEDS: ATORVASTATIN 20 MG TABLET PO (20:48)
--- NOTE | 2023-08-28 05:23 | PC.NURSE ---
Pt refused AM cares because only male staff were available to change her. requested to wait until day staff gets here to change her.
[2023-08-28 05:44] VITALS: BP 139/67; PULSE 72; RESP 16; TEMP 36.3; O2SAT 98
[2023-08-28 07:16] LABS: Anion Gap 4 mmol/L (8-16); Blood Urea Nitrogen 18 mg/dL (7-17); Calcium 9.5 mg/dL (8.4-10.2); Carbon Dioxide 33 mmol/L (22-30); Chloride 96 mmol/L (98-107); Estimated CRCL calculation 64 ml/min; Estimated Glomerular Filt Rate > 60; Glucose 89 mg/dL (65-110); Potassium 4.4 mmol/L (3.4-5.0); Sodium 133 mmol/L (137-145)
[2023-08-28] MEDS: CALCIUM CARBONATE (TUMS) 500 MG (200 MG ELEMENTAL) PO (08:59)
[2023-08-28] MEDS: ESCITALOPRAM OXALATE 10 MG TABLET 20 MG PO (08:59)
[2023-08-28] MEDS: POTASSIUM CHLORIDE 20 MEQ PACKET (FOR LIQUID) 40 MEQ PO ×2 (08:59→17:08)
[2023-08-28] MEDS: FUROSEMIDE 40 MG TABLET PO (09:00)
[2023-08-28] MEDS: APIXABAN 5 MG TABLET PO ×2 (09:00→17:08)
[2023-08-28] MEDS: LOSARTAN POTASSIUM 100 MG TABLET PO (09:00)
--- NOTE | 2023-08-28 09:11 | PM.IMPN ---
Progress Note: A&P Assessment and Plan (1) Acute UTI: Code(s): N39.0 - Urinary tract infection, site not specified Status: Acute Assessment and Plan: Proteus mirabilis sensitive to ceftriaxone, sulfa, Cipro, and Augmentin Ceftriaxone day 6 on 08/28/23 Change to Augmentin for 1 more day (2) CHF (congestive heart failure): Code(s): I50.9 - Heart failure, unspecified Status: Acute Assessment and Plan: Clinically stable (3) Generalized weakness: Code(s): R53.1 - Weakness Status: Acute Assessment and Plan: Multifactorial with acute infection and deconditioning being major factors Continue PT/OT Treat infection Per CC plan is for AL to re-evaluate her 08/28/23 (4) Atrial fibrillation: Code(s): I48.91 - Unspecified atrial fibrillation Status: Chronic Assessment and Plan: Clinically stable (5) Hypertension: Code(s): I10 - Essential (primary) hypertension Status: Chronic Assessment and Plan: 08/27/2023 control adequate Subjective Date/time seen: 08/28/23 09:11 Interval history: Patient still has general weakness, but patient denies chest pain or shortness of breath or swelling. No GI or issues. No bleeding. Exam Narrative: HEENT: PERRL, sclerae nonicteric, pharyngeal mucosa pink and intact NECK: No JVD, adenopathy, or thyromegaly CHEST: Clear to auscultation. Normal effort. HEART: NL S1/S2, regular, no murmur ABDOMEN: BS+, soft, nontender, no mass, no bruits EXTREMITIES: No cyanosis, edema, or clubbing NEUROLOGIC: CN intact and symmetric to inspection. MUSCULOSKELETAL: Tone and strength symmetric. PSYCH: Alert. Oriented to person, place, and time. Objective Data Vital Signs Vital Signs: Vital Signs - 24 hr 08/27/23 14:00 08/27/23 20:42 08/28/23 05:44 Temperature 98.4 F 97.2 F L 97.3 F L Pulse Rate 61 62 72 Respiratory Rate 18 16 16 Blood Pressure 138/71 159/68 H 139/67 Pulse Oximetry 98 98 98 Intake/Output Intake/Output: Intake & Output 08/26/23 08/27/23 08/27/23 08/28/23 00:59 00:59 23:59 23:59 Intake Total 1000 Output Total 0 Balance 1000 Meds/Results Medications: Active Medications Generic Name Dose Route Start Last Admin Trade Name Freq PRN Reason Stop Dose Admin Acetaminophen 500 mg 08/23/23 17:14 08/25/23 21:01 Acetaminophen 500 Mg Tablet PO 500 mg Q6H PRN Administration Pain Rated 1-3 Apixaban 5 mg 08/25/23 17:00 08/28/23 09:00 Apixaban 5 Mg Tablet PO 5 mg BID AMILCAR Administration Atorvastatin Calcium 20 mg 08/23/23 21:59 08/27/23 20:48 Atorvastatin 20 Mg Tablet PO 20 mg HS AMILCAR Administration Calcium Carbonate 500 mg 08/24/23 09:00 08/28/23 08:59 Calcium Carbonate (Tums) 500 Mg (200 Mg Elemental) PO 500 mg DAILY AMILCAR Administration Escitalopram Oxalate 20 mg 08/24/23 09:00 08/28/23 08:59 Escitalopram Oxalate 10 Mg Tablet PO 20 mg DAILY AMILCAR Administration Furosemide 40 mg 08/24/23 09:00 08/28/23 09:00 Furosemide 40 Mg Tablet PO 40 mg DAILY AMILCAR Administration Ceftriaxone Sodium 1 gm in 50 mls @ 100 mls/hr 08/24/23 06:00 08/28/23 05:18 Rocephin 1 Gm/Ns 50 Ml IVPB 100 mls/hr Q24H AMILCAR Administration Lidocaine 1 patch 08/24/23 09:00 08/27/23 09:02 Lidocaine 5% Patch TRANSDERM 1 patch DAILY AMILCAR Administration Losartan Potassium 100 mg 08/24/23 09:00 08/28/23 09:00 Losartan Potassium 100 Mg Tablet PO 100 mg DAILY AMILCAR Administration Potassium Chloride 40 meq 08/24/23 17:00 08/28/23 08:59 Potassium Chloride 20 Meq Packet (For Liquid) PO 40 meq BID AMILCAR Administration Tramadol HCl 25 mg 08/23/23 17:16 08/26/23 08:45 Tramadol Hcl (*Crx) 25 Mg Tablet PO 25 mg Q6H PRN Administration Pain Rated 4-6 Radiology Results: ITS Impressions Chest/Abdomen/Pelvis CT 08/23/23 05:00 IMPRESSION: 1. Fracture of anterior aspect of T10 verteb
[2023-08-28] MEDS: LIDOCAINE 5% PATCH 1 PATCH TRANSDERM (09:13)
[2023-08-28 13:07] VITALS: O2SAT 96
[2023-08-28 14:00] VITALS: BP 106/71; PULSE 62; RESP 18; TEMP 35.8; O2SAT 100
--- NOTE | 2023-08-28 15:41 | PM.DS ---
DS: Admitting Diagnosis Discharge Date August 28, 2023 Admitting Diagnosis Acute UTI: DS: Discharge Diagnosis Discharge Diagnosis (1) Generalized weakness: Code(s): R53.1 - Weakness Status: Acute (2) Congestive heart failure (CHF): Qualifiers: Heart failure chronicity: acute Heart failure type: unspecified Qualified Code(s): I50.9 - Heart failure, unspecified Code(s): I50.9 - Heart failure, unspecified Status: Acute (3) Unsteady gait: Code(s): R26.81 - Unsteadiness on feet Status: Acute (4) Atrial fibrillation: Code(s): I48.91 - Unspecified atrial fibrillation Status: Chronic (5) Hypertension: Code(s): I10 - Essential (primary) hypertension Status: Chronic (6) Generalized osteoarthritis of multiple sites: Code(s): M15.9 - Polyosteoarthritis, unspecified Status: Acute DS: Summary Hospital Course Hospital Course: Per H&P, 83-year-old female with past medical history significant for morbid obesity, atrial fibrillation, rate controlled anticoagulated, chronic lymphedema, generalized osteoarthritis, hypertension, obstructive sleep apnea. Poor historian states she fell backwards hit her head and her low back not a clear history. Pt had CT Head Cspine and CT CHEST,? abdomen and pelvis?1. Fracture of anterior aspect of T10 vertebral body without height loss. 2. Diffuse septal thickening in the lungs, likely a combination of mild pulmonary edema and mild chronic interstitial lung disease. The following n medical issues have been addressed during hospitalization (1) Acute UTI: ?Code(s): N39.0 - Urinary tract infection, site not specified ?Status:?Acute ?Assessment and Plan: Proteus mirabilis sensitive to ceftriaxone, sulfa, Cipro, and Augmentin Ceftriaxone day 6 on 08/28/23Change to Augmentin for 1 more day (2) CHF (congestive heart failure): ?Code(s): I50.9 - Heart failure, unspecified ?Status:?Acute ?Assessment and Plan: Clinically stable(3) Generalized weakness: Received lasix po now compensated. ?Code(s): R53.1 - Weakness ?Status:?Acute ?Assessment and Plan: Multifactorial with acute infection and deconditioning being major factors Continue PT/OT Treat infection Per CC plan is for AL to re-evaluate her 08/28/23(4) Atrial fibrillation: ?Code(s): I48.91 - Unspecified atrial fibrillation ?Status:?Chronic ?Assessment and Plan: Clinically stable(5) Hypertension: ?Code(s): I10 - Essential (primary) hypertension ?Status:?Chronic ?Assessment and Plan: 08/27/2023 control adequate c/w home meds Thyroid nodule 2.1 cm thyroid nodule. Referred and management to primary care doctor for further evaluation may consider thyroid ultrasound for risk stratification Time Spent with Patient Time attestation: Total time spent providing and/or coordinating discharge services: Exam Narrative: HEENT: PERRL, sclerae nonicteric, pharyngeal mucosa pink and intact NECK: No JVD, adenopathy, or thyromegaly CHEST: Clear to auscultation. Normal effort. HEART: NL S1/S2, regular, no murmur ABDOMEN: BS+, soft, nontender, no mass, no bruits EXTREMITIES: No cyanosis, edema, or clubbing NEUROLOGIC: CN intact and symmetric to inspection. MUSCULOSKELETAL: Tone and strength symmetric. PSYCH: Alert. Oriented to person, place, and time. DS: Data Data Completed and Pending Labs on day of discharge: Labs from last 24 hours 08/28/23 06:39 Sodium 133 L Potassium 4.4 Chloride 96 L Carbon Dioxide 33 H Anion Gap 4 L BUN 18 H Creatinine 0.70 Estim Creat Clear Calc 64 Estimated GFR > 60 Glucose 89 Calcium 9.5 Discharge Plan Discharge Attending physician on discharge: Jose Raul Ignacio Consulting providers: Jeannie Raymundo Discharging Clinician: Jose Raul Ignacio Anticipated Discharge Date/Time: 08/28/23 15:47 Patient Dispo
--- NOTE | 2023-08-28 17:56 | PC.NURSE ---
Rayne Huffman provided care and assessments on this patient. I have reviewed and agreed with her charting
== END 2023-08-28 17:58 | DRG 689 ==
LOC: ANHED 08-23 06:19 → ANH3MEDSUR 08-23 06:24
PROVIDERS: Family Medicine; Internal Medicine; Admitting Provider Internal Medicine; Emergency Provider Emergency Medicine; PCP Internal Medicine; Visit Provider Hospitalist
DX: N39.0 Urinary tract infection, site not specified (principal); I50.23 Acute on chronic systolic (congestive) heart failure; E87.1 Hypo-osmolality and hyponatremia; Z68.41 Body mass index [BMI] 40.0-44.9, adult; S22.079A Unspecified fracture of T9-T10 vertebra, initial encounter for closed fracture; I48.20 Chronic atrial fibrillation, unspecified; B96.4 Proteus (mirabilis) (morganii) as the cause of diseases classified elsewhere; S00.03XA Contusion of scalp, initial encounter; W19.XXXA Unspecified fall, initial encounter; I11.0 Hypertensive heart disease with heart failure; M15.9 Polyosteoarthritis, unspecified; G47.33 Obstructive sleep apnea (adult) (pediatric); E04.1 Nontoxic single thyroid nodule; Z20.822 Contact with and (suspected) exposure to COVID-19; E87.8 Other disorders of electrolyte and fluid balance, not elsewhere classified; E66.01 Morbid (severe) obesity due to excess calories; R29.6 Repeated falls; Z79.01 Long term (current) use of anticoagulants; Z87.891 Personal history of nicotine dependence
CPT/HCPCS: 36415; 70450; 71045; 71260; 72125; 74177; 80048; 80053; 81001; 83690; 83735; 83880; 84100; 84484; 85025; 85027; 87077; 87086; 87186; 87637; 93005; 96365; 96375; 97110; 97116; 97161; 97166; 97530; 97535; 99285; A9270; J0696; J1170; J1940; Q9967

== ENCOUNTER 2023-09-17 00:24 | Emergency (ER) | payer MEDICARE, OTHER, SELFPAY ==
--- NOTE | ~2023-09-17 | CT_ITS ---
EXAMINATION: CT thoracic lumbar wo con DATE: 09/17/2023 02:38 INDICATION: Fall, . TECHNIQUE: Computed tomography (CT) of the thoracic and lumbar spine was performed without intravenou s contrast. Automated exposure control and iterative reconstruction technique were employed. The dose -length product was 2167.39 mGy-cm. COMPARISON: CT chest abdomen pelvis 08/23/2023 FINDINGS: THORACIC SPINE: Vertebral body alignment intact. Vertebral body heights preserved. Moderate multilevel disc space rachelle rowing and osteophytosis, including bridging anterolateral osteophytes. Mildly exaggerated kyphosis. Nondisplaced oblique fracture of the right aspect of the anterior inferior corner of the T10 vertebra l body. Old spinous process tip avulsion at T12. No other fracture detected. Septal thickening. Mosai c attenuation. LUMBAR SPINE: 5 nonrib-bearing lumbar-type vertebral bodies. Pedicles intact. Stable multilevel grade 1 listheses. Vertebral body heights preserved. Multilevel severe degenerative disc disease and facet arthropathy. Multilevel severe bilateral neural foraminal narrowing and central canal narrowing, on a degenerative basis. Transverse lucency in the posterior elements of the distal sacrum at the level of S3. Likely old healed fracture through the proximal coccygeal elements. Possible rectal wall thickening. IMPRESSION: Interstitial/edematous changes in the lungs. Nondisplaced hyperextension type fracture of the anterior inferior corner of T10, unchanged. Possible nondisplaced transverse fracture of the posterior elements at the level of S3. Correlate wit h pain/tenderness Thyroid nodule, unchanged. Possible prostatitis. Reviewed, dictated and finalized at location K. ER TIRE CURER IMPRESSION: Interstitial/edematous changes in the lungs. Nondisplaced hyperextension type fracture of the anterior inferior corner of T1 0, unchanged. Possible nondisplaced transverse fracture of the posterior elements at the leve l of S3. Correlate with pain/tenderness Thyroid nodule, unchanged. Possible prostatitis.
--- NOTE | ~2023-09-17 | XR_ITS ---
EXAMINATION: XR chest 1V portable INDICATION: Chest pain TECHNIQUE: Portable AP chest at 0332 hours COMPARISON: 08/23/2023 FINDINGS: There is mild atelectasis of lung bases. No pleural effusion or pneumothorax. Cardiomegaly is noted. There are chronic interstitial opacities of the lungs, consistent with chronic interstitial lung disease. There is advanced osteoarthritis of the glenohumeral joints. IMPRESSION: 1. Mild atelectasis of the lung bases and findings consistent with chronic interstitial lung disease Reviewed, dictated and finalized at location F. TIONAL ARCHITECT IMPRESSION: 1. Mild atelectasis of the lung bases and findings consistent with chronic inte rstitial lung disease
--- NOTE | ~2023-09-17 | CT_ITS ---
EXAMINATION: CT brain wo con INDICATION: Head injury COMPARISON: 08/22/2023 TECHNIQUE: Standard unenhanced head CT. The dose-length product (DLP) was 756.67 mGy-cm. The mA was a djusted according to patient size. Iterative reconstruction technique was employed. FINDINGS: There is a large left parietal scalp hematoma. No acute intraparenchymal hemorrhage. No antolin dence of mass lesion. No evidence of acute infarction. There is mild periventricular and subcortical hypodensity probably related to small vessel ischemic disease. There is mild prominence of the sulci and ventricles related to cerebral atrophy. Intracranial calcified cerebral atherosclerosis is noted. No extra-axial collections. No mass effect or midline shift. Changes in the globes are likely from o cular lens surgery. The visualized sinuses and mastoid air cells are well aerated. IMPRESSION: 1. Large left parietal scalp hematoma without acute intracranial abnormality. 2. Age related findings. Reviewed, dictated and finalized at location F. TMENT COMMUNITY MANAGER
--- NOTE | ~2023-09-17 | CT_ITS ---
EXAMINATION: CT cervical spine wo con DATE: 09/17/2023 02:38 INDICATION: Neck pain TECHNIQUE: Computed tomography (CT) of the cervical spine was performed without intravenous contrast. The dose-length product (DLP) was 488.34 mGy-cm. Automated exposure control and iterative reconstruc tion technique were employed. COMPARISON: 08/22/2023 FINDINGS: There are 2 mm of anterolisthesis of C5 on C6. There is mild loss of intervertebral disc sp su height at C5-6. The vertebral body heights are maintained. There is no fracture. The odontoid pro cess is intact. There is multilevel severe facet and uncovertebral joint osteoarthritis. There are ca lcified loose bodies in the right glenohumeral joint. A 1.5 cm subcutaneous mass of the left neck has the appearance of a sebaceous cyst. Again noted is a 2.4 cm nodule of the right thyroid. Chronic int erstitial lung disease is noted in the visualized lung apices. IMPRESSION: 1. Mild cervical spondylosis without acute findings. Reviewed, dictated and finalized at location F. MOBILE CLUB TRAVEL COUNSELOR
[2023-09-17 00:25] VITALS: BP 160/97; PULSE 75; RESP 11; TEMP 36.2; O2SAT 100
--- NOTE | 2023-09-17 02:13 | PC.NURSE ---
Pt refusing to keep vital equipment on pt and not allowing repeat vitals to be collected.
--- NOTE | 2023-09-17 02:43 | ED.GENADULT ---
HPI - General Adult General Chief complaint: Fall Stated complaint: glf Time Seen by Provider: 09/17/23 00:38 History of Present Illness HPI narrative: This is an 83-year-old female presenting after mechanical fall. Patient walked her kitchen when she tripped and fell backwards. She is on Eliquis. She has a hematoma to the back her head. She is also complaining of lower back pain. No other complaints at this time Related Data Home Medications Medication Instructions Recorded Confirmed apixaban 5 mg tablet (Eliquis) 5 mg PO BID 02/17/21 08/28/23 calcium carbonate 500 mg calcium 500 mg PO DAILY 02/17/21 08/28/23 (1,250 mg) chewable tablet (Calcium 500) losartan 100 mg tablet 100 mg PO DAILY 02/17/21 08/28/23 acetaminophen 500 mg tablet 500 mg PO Q6H PRN Pain 06/04/21 08/28/23 (Tylenol Extra Strength) atorvastatin 20 mg tablet 20 mg PO HS 02/04/23 08/28/23 escitalopram oxalate 10 mg tablet 20 mg PO DAILY 02/04/23 08/28/23 Allergies Allergy/AdvReac Type Severity Reaction Status Date / Time No Known Allergies Allergy Verified 08/23/23 00:16 [facility] Past Medical History Medical History RUPERT positive Arthritis Atrial fibrillation Encounter for medication management Generalized osteoarthritis of multiple sites Hypertension Inflammatory arthritis Lymphedema CHRIS (obstructive sleep apnea) Family History Family History Father Cerebrovascular accident Social History Social History Smoking packs per day: 0.5 Smoking cigarettes per day: 10.0 Years smoked: 30 Smoking pack-years: 15.00 Smoking status: Former smoker Tobacco type: cigarettes Second hand tobacco smoke exposure: No Alcohol intake: unknown Substance use: unknown Substance use type: does not use Lack of Transportation: No Lack of Food: Never True Current Housing: I Have Housing Concerned About Future Housing: No Difficulty Paying Gas/Electric Bills: No Difficulty Paying for Meds: No Currently Unemployed: No Education: High School Diploma/GED Difficulty w/ Childcare or Family Care: No Spiritual care concerns: No Exam Narrative: APPEARANCE: No apparent distress. Head: hematoma to the back patient's head with an abrasion. EYES: EOMI, NOSE: Atraumatic neck, back: no midline cervical tenderness, tenderness to palpation over the L-spine RESPIRATORY: No increased rate of breathing CARDIOVASCULAR: RRR, ABDOMINAL: Non-distended MUSCULOSKELETAl: No obvious deformities NEURO: Alert. Cranial nerves 2-12 grossly intact. Sensation light touch, motor function cerebellar function intact for 4 extremities. SKIN:: Warm, dry. Normal color PSYCHIATRIC: Normal affect Course Vital Signs Vital signs: Vital Signs Temperature 97.2 F L 09/17/23 00:25 Pulse Rate 75 09/17/23 00:25 Respiratory Rate 11 L 09/17/23 00:25 Blood Pressure 160/97 H 09/17/23 00:25 Pulse Oximetry 100 09/17/23 00:25 Oxygen Delivery Room Air 09/17/23 00:25 Temperature 97.2 F L 09/17/23 00:25 Pulse Rate 75 09/17/23 00:25 Respiratory Rate 11 L 09/17/23 00:25 Blood Pressure 160/97 H 09/17/23 00:25 Pulse Oximetry 100 09/17/23 00:25 Oxygen Delivery Room Air 09/17/23 00:25 Medical Decision Making MDM Narrative Medical decision making narrative: -Course: 83-year-old female presenting after fall on thinners CT head and C-spine were negative. CT T and L-spine showed a nondisplaced oblique fracture of T10. Patient has no neurologic findings. patient has significant pain with movement in her mobility is even more limited as well. Patient will be admitted for pain control and PT OT eval. Case was discussed with Dr. Parsons of Neurosurgery who will arrange for a brace fitting. Potassium a was 2.9. This was repleted orally. -DDX inclu
[2023-09-17 05:17] LABS: Basophils Percent Auto 0.3 % (0.2-1.2); Eosinophils Absolute Auto 0.2 K/mm3 (0-0.3); Eosinophils Percent Auto 1.4 % (0-4.4); Hematocrit 44.4 % (37.0-47.0); Hemoglobin 14.3 g/dL (12.0-15.0); Immature Granulocyte Absolute 0.03 K/mm3 (0.00-0.031); Immature Granulocyte Percent A 0.3 % (0-0.5); Lymphocytes Absolute Auto 1.09 K/mm3 (0.9-3.2); Lymphocytes Percent Auto 10.5 % (18.3-44.2); Mean Corpuscular HGB Conc 32.2 g/dl (32-36); Mean Corpuscular Hemoglobin 30.2 pg (26-34); Mean Corpuscular Volume 93.9 fl (80-100); Mean Platelet Volume 10.3 fl (7.4-10.4); Monocytes Absolute Auto 0.6 K/mm3 (0.1-0.6); Neutrophils Absolute Auto 8.5 K/mm3 (1.3-6.7); Neutrophils Percent Auto 81.5 % (45.5-73.1); Platelet Count Result 221 k/mm3 (150-375); Red Blood Count 4.73 M/mm3 (4.2-5.4); Red Cell Distribution Width 15.1 % (11.5-14.5); White Blood Count 10.4 K/mm3 (4.5-10.0)
[2023-09-17 05:26] LABS: Anion Gap 11 mmol/L (8-16); Blood Urea Nitrogen 13 mg/dL (7-17); Calcium 9.4 mg/dL (8.4-10.2); Carbon Dioxide 27 mmol/L (22-30); Chloride 100 mmol/L (98-107); Estimated CRCL calculation 88 ml/min; Estimated Glomerular Filt Rate > 60; Glucose 102 mg/dL (65-110); Potassium 2.9 mmol/L (3.4-5.0); Sodium 138 mmol/L (137-145)
[2023-09-17] MEDS: methocarbamoL 750 MG TABLET PO (06:57)
[2023-09-17] MEDS: HYDROcodone/acetaminophen (*CRX) 5-325 MG TABLET 1 TAB PO (06:57)
[2023-09-17] MEDS: POTASSIUM CHLORIDE 20 MEQ PACKET (FOR LIQUID) 40 MEQ PO (06:58)
[2023-09-17 07:07] VITALS: BP 169/95; PULSE 72; RESP 18; O2SAT 100
[2023-09-17 07:53] VITALS: BP 181/69; PULSE 77; RESP 18; O2SAT 100
[2023-09-17 08:35] VITALS: BP 175/70; PULSE 82; RESP 16; O2SAT 98
--- NOTE | 2023-09-17 08:35 | PC.NURSE ---
Pt is A/O x 4 and reports she wants to go home. Daughter nelly reports pt has appointment with neurology tomorrow and they have had the appointment for a long time and don't want to miss it.
--- NOTE | 2023-09-17 08:56 | PC.NURSE ---
Oneyda Love notified regarding patient's request to leave AMA. Oneyda Love acknowledged request. AMA paperwork to be signed by patient.
--- NOTE | 2023-09-17 08:59 | PC.NURSE ---
KENNY Schwartz, made aware patient is leaving AMA.
--- NOTE | 2023-09-17 09:28 | WPDNEUROSGCN ---
Assessment and Plan Assessment and plan (1) Fracture of T10 vertebra: Code(s): S22.079A - Unspecified fracture of T9-T10 vertebra, initial encounter for closed fracture Status: Acute Plan Janie Jorge is a 83 year old female with PMH of Afib on Eliquis who presented to the ED after a mechanical fall from standing. Patient was in the ED about one month ago from another fall. This time she fell straight backwards and fell on the back of her head and back. Patient with left parietal scalp hematoma and complaining of back pain. - Fall from standing - CT with T10 and T12 vertebral body fractures - No indication for surgical intervention - Pain control per [employer] - I have contacted [employer] [place]. They will come fit patient for brace. Brace to be worn when up out of bed to help with pain when standing. - Patient can f/u in [facility] in 8 weeks with Xrays Consult date: 09/17/23 Reason for consult: Thoracic Fracture after Fall from standing HPI: Janie Jorge is a 83 year old female with PMH of Afib on Eliquis who presented to the ED after a mechanical fall from standing. Patient was in the ED about one month ago from another fall. This time she fell straight backwards and fell on the back of her head and back. Patient with left parietal scalp hematoma and complaining of back pain. CT Head in the ED showed a left parietal scalp hematoma but fortunately the CT head was negative for acute intracranial hemorrhage. CT T/L was done for her back pain. CT Lumbar shows old sacral fracture. CT lumbar shows new T10 oblique fracture through the anterior column. There also appears to be a possible oblique fracture through the posterior aspect of the T12 vertebral body, with no retropulsion and not involving the pedicles. There is no central canal stenosis. Per the ED physician, the patient is neurologically intact. She does have back pain made worse with standing. [facility] Past Medical History Medical History RUPERT positive Arthritis Atrial fibrillation Encounter for medication management Generalized osteoarthritis of multiple sites Hypertension Inflammatory arthritis Lymphedema CHRIS (obstructive sleep apnea) Family History Family History Father Cerebrovascular accident Social History Social History Smoking packs per day: 0.5 Smoking cigarettes per day: 10.0 Years smoked: 30 Smoking pack-years: 15.00 Smoking status: Former smoker Tobacco type: cigarettes Second hand tobacco smoke exposure: No Alcohol intake: unknown Substance use: unknown Substance use type: does not use Lack of Transportation: No Lack of Food: Never True Current Housing: I Have Housing Concerned About Future Housing: No Difficulty Paying Gas/Electric Bills: No Difficulty Paying for Meds: No Currently Unemployed: No Education: High School Diploma/GED Difficulty w/ Childcare or Family Care: No Spiritual care concerns: No Meds Home Medications and Allergies Home Medications Medication Instructions Recorded Confirmed Type apixaban 5 mg tablet (Eliquis) 5 mg PO BID 02/17/21 08/28/23 History calcium carbonate 500 mg calcium 500 mg PO DAILY 02/17/21 08/28/23 History (1,250 mg) chewable tablet (Calcium 500) losartan 100 mg tablet 100 mg PO DAILY 02/17/21 08/28/23 History acetaminophen 500 mg tablet 500 mg PO Q6H PRN Pain 06/04/21 08/28/23 History (Tylenol Extra Strength) atorvastatin 20 mg tablet 20 mg PO HS 02/04/23 08/28/23 History escitalopram oxalate 10 mg tablet 20 mg PO DAILY 02/04/23 08/28/23 History lidocaine 5 % topical patch 1 patch transdermal DAILY #30 ea 08/28/23 08/28/23 Rx (Lidoderm) diclofenac sodium 1 % topical gel 2 g topical QID #100 grams 09/07/23 Rx (Voltaren Arthritis
[2023-09-17 09:35] VITALS: BP 152/45; PULSE 71; RESP 18; O2SAT 98
[2023-09-17 09:54] VITALS: TEMP 36.4
== END 2023-09-17 10:09 | disposition left against medical advice (07) ==
PROVIDERS: Emergency Provider Emergency Medicine; PCP Internal Medicine
DX: S00.03XA Contusion of scalp, initial encounter (principal); S22.070A Wedge compression fracture of T9-T10 vertebra, initial encounter for closed fracture; E87.6 Hypokalemia; I48.91 Unspecified atrial fibrillation; I10 Essential (primary) hypertension; I89.0 Lymphedema, not elsewhere classified; G47.33 Obstructive sleep apnea (adult) (pediatric); M19.90 Unspecified osteoarthritis, unspecified site; Z79.01 Long term (current) use of anticoagulants; Z87.891 Personal history of nicotine dependence; E04.1 Nontoxic single thyroid nodule; R91.8 Other nonspecific abnormal finding of lung field; M47.812 Spondylosis without myelopathy or radiculopathy, cervical region; W01.0XXA Fall on same level from slipping, tripping and stumbling without subsequent striking against object, initial encounter
CPT/HCPCS: 36415; 70450; 71045; 72125; 72128; 72131; 80048; 85025; 99284; A9270

== ENCOUNTER 2023-11-25 12:17 | Emergency (ER) | payer MEDICARE, OTHER, SELFPAY ==
[2023-11-25] VITALS (16 sets, daily range): BP systolic 101–160; BP diastolic 60–109; PULSE 56–75; RESP 13–26; TEMP 36.5; O2SAT 96–100
--- NOTE | 2023-11-25 14:24 | ED.FEMALEGU ---
HPI - Female Genitourinary General Chief complaint: Urogenital-Female Stated complaint: increased confusion/strong urine Time Seen by Provider: 11/25/23 14:22 History of Present Illness HPI Narrative: Patient is an 83 year old female here from her assisted living for increased confusion, combativeness and concern for a UTI. Daughter at bedside helps provide history. She states that for the last 1 week patient seems to be a bit more confused and aggressive. She denies any falls. She notes that she has gotten like this in the past for urinary tract infection and tends to have recurrent urinary tract infections. She was hospitalized in August for similar, notes that [facility] had [facility] and there they had changed her antibiotics. Family is unsure if she was changed from or to ciprofloxacin and Augmentin. They state that it has been about 1 month since she completed treatment. Patient denies pain or falls. Related Data Home Medications Medication Instructions Recorded Confirmed apixaban 5 mg tablet (Eliquis) 5 mg PO BID 02/17/21 08/28/23 calcium carbonate 500 mg calcium 500 mg PO DAILY 02/17/21 08/28/23 (1,250 mg) chewable tablet (Calcium 500) losartan 100 mg tablet 100 mg PO DAILY 02/17/21 08/28/23 acetaminophen 500 mg tablet 500 mg PO Q6H PRN Pain 06/04/21 08/28/23 (Tylenol Extra Strength) atorvastatin 20 mg tablet 20 mg PO HS 02/04/23 08/28/23 escitalopram oxalate 10 mg tablet 20 mg PO DAILY 02/04/23 08/28/23 Allergies Allergy/AdvReac Type Severity Reaction Status Date / Time Penicillins Allergy Rash Verified 11/25/23 14:20 Sulfa (Sulfonamide Allergy Rash Verified 11/25/23 14:20 Antibiotics) Review of Systems Review of Systems: All systems reviewed & are unremarkable except as noted in HPI and below PMFSH Past Medical History Medical History RUPERT positive Arthritis Atrial fibrillation Encounter for medication management Generalized osteoarthritis of multiple sites Hypertension Inflammatory arthritis Lymphedema CHRIS (obstructive sleep apnea) Family History Family History Father Cerebrovascular accident Social History Social History Smoking packs per day: 0.5 Smoking cigarettes per day: 10.0 Years smoked: 30 Smoking pack-years: 15.00 Smoking status: Former smoker Tobacco type: cigarettes Second hand tobacco smoke exposure: No Alcohol intake: unknown Substance use: unknown Substance use type: does not use Lack of Transportation: No Lack of Food: Never True Current Housing: I Have Housing Concerned About Future Housing: No Difficulty Paying Gas/Electric Bills: No Difficulty Paying for Meds: No Currently Unemployed: No Education: High School Diploma/GED Difficulty w/ Childcare or Family Care: No Spiritual care concerns: No Exam Narrative: GENERAL: Well-appearing, well-nourished, and in no acute distress. HEAD: Normocephalic, atraumatic. EYES: PERRLA and EOMI. ENT: Nares clear. Mucous membranes moist. NECK: Supple. CHEST: Clear to auscultation. No respiratory distress. HEART: Regular rate and rhythm. Normal peripheral pulses. ABDOMEN: Soft, nontender, nondistended. EXTREMITIES: Normal range of motion. No edema. SKIN: Warm, dry, no rash. NEURO: No focal deficits. Alert and oriented x3. PSYCH: Normal mood and affect. Course Course Emergency Course: Chart review performed. Patient here from assisted living with daughter for increased confusion, combativeness and strong smell of urine. Triage vitals grossly normal. She appears to have been admitted on 08/28/23 for a UTI, also found to have multiple thoracic fractures at that time, stable, non surgical. Patient seen evaluated, nontoxic appearing. She is calm and cooperative on my exam, getting a straight cat
[2023-11-25 14:43] LABS: Basophils Absolute Auto 0.1 K/mm3 (0.0-0.1); Basophils Percent Auto 0.5 % (0.2-1.2); Eosinophils Absolute Auto 0.1 K/mm3 (0-0.3); Eosinophils Percent Auto 1.1 % (0-4.4); Hematocrit 47.3 % (37.0-47.0); Hemoglobin 14.8 g/dL (12.0-15.0); Immature Granulocyte Absolute 0.03 K/mm3 (0.00-0.031); Immature Granulocyte Percent A 0.3 % (0-0.5); Lymphocytes Percent Auto 10.2 % (18.3-44.2); Mean Corpuscular HGB Conc 31.3 g/dl (32-36); Mean Corpuscular Hemoglobin 30.3 pg (26-34); Mean Corpuscular Volume 96.9 fl (80-100); Mean Platelet Volume 9.9 fl (7.4-10.4); Monocytes Absolute Auto 0.7 K/mm3 (0.1-0.6); Monocytes Percent Auto 6.3 % (2.6-8.5); Neutrophils Absolute Auto 8.8 K/mm3 (1.3-6.7); Neutrophils Percent Auto 81.6 % (45.5-73.1); Platelet Count Result 252 k/mm3 (150-375); Red Blood Count 4.88 M/mm3 (4.2-5.4); Red Cell Distribution Width 14.7 % (11.5-14.5); White Blood Count 10.8 K/mm3 (4.5-10.0)
[2023-11-25 15:11] LABS: Appearance Urine Turbid (Clear); Bacteria Urine 1+ /hpf; Bilirubin Urine Negative (Negative); Blood Urine 2+ (Negative); Color Urine Yellow (Yellow); Glucose Urine UA Negative (Negative); Ketones Urine Negative (Negative); Leukocyte Esterase Ur 3+ LEU/UL (Negative); Need Manual Microscopic Reviewed; Nitrate Urine Positive (Negative); Protein Urine 1+ mg/dL (Negative); Specific Grav Ur 1.015 (1.001-1.035); Squamous Epithelial Cell Urine None seen /hpf (Few); WBC Urine >100 /hpf
[2023-11-25 15:12] LABS: Add Urine Microscopic? YES
[2023-11-25 16:31] LABS: Alanine Aminotransferase 14 U/L (6-35); Albumin Level 3.7 g/dL (3.5-5.1); Alkaline Phosphatase 80 U/L (38-126); Anion Gap 6 mmol/L (8-16); Aspartate Amino Transferase 25 U/L (14-36); Bilirubin,Total 0.8 mg/dL (0.2-1.3); Blood Urea Nitrogen 16 mg/dL (7-17); Calcium 9.7 mg/dL (8.4-10.2); Carbon Dioxide 31 mmol/L (22-30); Chloride 101 mmol/L (98-107); Estimated CRCL calculation 70 ml/min; Estimated Glomerular Filt Rate > 60; Glucose 86 mg/dL (65-110); Potassium 3.9 mmol/L (3.4-5.0); Sodium 138 mmol/L (137-145)
== END 2023-11-25 16:34 ==
PROVIDERS: Emergency Medicine; Emergency Provider Student in an Organized Health Care Education/Training Program; PCP Internal Medicine
DX: N39.0 Urinary tract infection, site not specified (principal); I48.91 Unspecified atrial fibrillation; I10 Essential (primary) hypertension; I89.0 Lymphedema, not elsewhere classified; G47.33 Obstructive sleep apnea (adult) (pediatric); M19.90 Unspecified osteoarthritis, unspecified site; Z87.891 Personal history of nicotine dependence
CPT/HCPCS: 36415; 80053; 81001; 85025; 87086; 96374; 99284; J0696

== ENCOUNTER 2023-12-21 22:30 | Inpatient (IN) | payer MEDICARE, OTHER, SELFPAY ==
--- NOTE | ~2023-12-21 | XR_ITS ---
EXAMINATION: XR chest 1V portable INDICATION: Cough TECHNIQUE: Portable AP chest at 1237 hours COMPARISON: 01/19/2024 FINDINGS: There are airspace opacities of the left lung base. Chronic widespread reticular opacities of the lungs are again noted. There is a small left pleural effusion. There is no pneumothorax. Cardi omegaly is noted. There is advanced osteoarthritis of the shoulders. IMPRESSION: 1. Small left pleural effusion with left basilar airspace opacities, atelectasis versus pneumonia. Reviewed, dictated and finalized at location B. SEWER IMPRESSION: 1. Small left pleural effusion with left basilar airspace opacities, atelectasi s versus pneumonia.
--- NOTE | ~2023-12-21 | XR_ITS ---
EXAMINATION: XR chest 1V portable INDICATION: Weakness and confusion TECHNIQUE: Portable AP chest at 2313 hours COMPARISON: 09/17/2023 FINDINGS: There are widespread reticular opacities of the lungs without significant change. No acute airspace opacities are identified. No pleural effusion or pneumothorax. Cardiomegaly is noted. There is advanced osteoarthritis of the glenohumeral joints. IMPRESSION: 1. Changes of chronic interstitial lung disease without acute abnormality identified. Reviewed, dictated and finalized at location F. MANAGER IMPRESSION: 1. Changes of chronic interstitial lung disease without acute abnormality ident ified.
--- NOTE | ~2023-12-21 | CT_ITS ---
EXAMINATION: CT brain wo con INDICATION: Altered mental status COMPARISON: 09/17/2023 TECHNIQUE: Standard unenhanced head CT. The dose-length product (DLP) was 908.00 mGy-cm. The mA was a djusted according to patient size. Iterative reconstruction technique was employed. FINDINGS: No acute intraparenchymal hemorrhage. No evidence of mass lesion. No evidence of acute infa rction. There is mild periventricular and subcortical hypodensity probably related to small vessel is chemic disease. There is mild prominence of the sulci and ventricles related to cerebral atrophy. Int racranial calcified cerebral atherosclerosis is noted. No extra-axial collections. No mass effect or midline shift. The orbits and soft tissues are unremarkable. The visualized sinuses and mastoid air c ells are well aerated. IMPRESSION: 1. No acute intracranial abnormality. 2. Age related findings. Reviewed, dictated and finalized at location F. SIGN MAKER
--- NOTE | ~2023-12-21 | CT_ITS ---
CT of the Abdomen and Pelvis: Indication: Abdominal pain Technique: 2.5 mm axial scans were obtained through the abdomen and pelvis following intravenous adm inistration of 100 cc of Omnipaque 350. Dose reduction technique was used on this scan by utilizing a utomated exposure control and iterative reconstruction technique. The dose-length product (DLP) was 1 328.82 mGy-cm. COMPARISON: 08/23/2023 Findings: Scans through the lung bases demonstrate mild left basilar atelectatic change. The liver, spleen, pancreas, adrenals and kidneys are within normal limits. Cholecystectomy clips are present. There are atherosclerotic calcifications of the aorta. No lymphadenopathy. No bowel obstruction or bowel wall thickening. There is no evidence to suggest acute appendicitis. Images through the pelvis were performed. Urinary bladder unremarkable. No adnexal mass seen. No asci melvin. Stent present in the right external iliac vein. Impression: No acute abnormality evident. Reviewed, dictated and finalized at [facility]. ONAL LINES ACCOUNT MANAGER Impression: No acute abnormality evident.
[2023-12-21 22:30] VITALS: BP 123/54; PULSE 89; RESP 20; TEMP 37; O2SAT 94
--- NOTE | 2023-12-21 23:03 | ECG_ITS ---
Measurements Intervals [place] Rate: 87 P: [place]: 0 QRS: -53 QRSD: 114 T: 119 QT: 400 QTc: 484 Interpretive Statements ATRIAL FIBRILLATION LEFT VENTRICULAR HYPERTROPHY WITH ST-T CHANGE LEFT ANTERIOR FASCICULAR BLOCK CANNOT RULE OUT SEPTAL INFARCT, AGE INDETERMINATE BASELINE ARTIFACT- I, II, III, AVR, AVL, AVF, V1-V5 ABNORMAL ECG COMPARED TO ECG 08/23/2023 01:17:40 NO SIGNIFICANT CHANGES Electronically Signed On 12-22-2023 6:40:04 E COMMERCE MANAGER by Sathya Bell D.O.
[2023-12-21 23:21] LABS: Basophils Percent Auto 0.2 % (0.2-1.2); Hematocrit 43.2 % (37.0-47.0); Hemoglobin 14.1 g/dL (12.0-15.0); Immature Granulocyte Absolute 0.13 K/mm3 (0.00-0.031); Immature Granulocyte Percent A 0.6 % (0-0.5); Lymphocytes Percent Auto 1.9 % (18.3-44.2); Mean Corpuscular HGB Conc 32.6 g/dl (32-36); Mean Corpuscular Hemoglobin 29.9 pg (26-34); Mean Corpuscular Volume 91.7 fl (80-100); Mean Platelet Volume 10.5 fl (7.4-10.4); Monocytes Absolute Auto 0.8 K/mm3 (0.1-0.6); Monocytes Percent Auto 3.8 % (2.6-8.5); Neutrophils Absolute Auto 19.8 K/mm3 (1.3-6.7); Neutrophils Percent Auto 93.5 % (45.5-73.1); Platelet Count Result 246 k/mm3 (150-375); Red Blood Count 4.71 M/mm3 (4.2-5.4); Red Cell Distribution Width 14.2 % (11.5-14.5); White Blood Count 21.2 K/mm3 (4.5-10.0)
[2023-12-21 23:35] LABS: INR 1.7; Prothrombin Time 21.1 Seconds (11.1-14.7)
[2023-12-21 23:36] LABS: Partial Thromboplastin Time 40.7 SECONDS (22.3-36.8)
[2023-12-21] MEDS: SODIUM CHLORIDE 0.9% IV 1,000 ML 999 ML IV CONT (23:36)
[2023-12-21 23:39] VITALS: BP 130/60; PULSE 85; RESP 17; O2SAT 98
[2023-12-21 23:40] LABS: Alanine Aminotransferase 12 U/L (6-35); Albumin Level 3.8 g/dL (3.5-5.1); Alkaline Phosphatase 69 U/L (38-126); Anion Gap 8 mmol/L (8-16); Aspartate Amino Transferase 19 U/L (14-36); Bilirubin,Total 1.9 mg/dL (0.2-1.3); Blood Urea Nitrogen 20 mg/dL (7-17); Calcium 9.6 mg/dL (8.4-10.2); Carbon Dioxide 24 mmol/L (22-30); Chloride 99 mmol/L (98-107); Estimated CRCL calculation 63 ml/min; Estimated Glomerular Filt Rate > 60; Glucose 136 mg/dL (65-110); Potassium 3.4 mmol/L (3.4-5.0); Sodium 131 mmol/L (137-145)
[2023-12-21 23:42] LABS: Appearance Urine Clear (Clear); Bacteria Urine None Seen /hpf; Bilirubin Urine Negative (Negative); Blood Urine Negative (Negative); Color Urine Dark Yellow (Yellow); Glucose Urine UA Negative (Negative); Ketones Urine Negative (Negative); Leukocyte Esterase Ur Trace LEU/UL (Negative); Nitrate Urine Negative (Negative); Protein Urine Negative (Negative); RBC Urine 0-2 /hpf (0-2); Squamous Epithelial Cell Urine Occasional /hpf (Few); WBC Urine 0-5 /hpf
[2023-12-21 23:43] VITALS: PULSE 87
[2023-12-21 23:46] VITALS: BP 146/83; PULSE 78; RESP 25; O2SAT 99
[2023-12-21 23:48] LABS: Add Urine Microscopic? YES
[2023-12-21 23:51] LABS: Troponin I < 0.012 ng/mL (0.000-0.034)
--- NOTE | 2023-12-21 23:51 | PC.NURSE ---
leticia rn assumed care of patient. this rn took patient report from michael nolan.
[2023-12-21 23:52] LABS: Lactic Acid Reflex 1.3 mmol/L (0.7-2.0)
[2023-12-22 00:01] LABS: Procalcitonin 0.2 ng/mL
[2023-12-22 00:10] LABS: Influenza A QL RT-PCR Negative (Negative); Influenza B QL RT-PCR Negative (Negative); RSV RNA, RT-PCR Negative (Negative); SARS-CoV-2 RNA PCR Negative (Negative)
--- NOTE | 2023-12-22 00:32 | ED.GENADULT ---
HPI - General Adult General Chief complaint: Weakness Stated complaint: GEN WEAKNESS Time Seen by Provider: 12/21/23 22:39 History of Present Illness HPI narrative: patient is a 83-year-old female who presents emergency department with chief complaint of generalized weakness. Per the family the patient was recently treated for urinary tract infection and was changed from Keflex to Bactrim. The patient's family noticed today that she has been less active than normal and has been having some episodes of confusion. They noticed no focal motor deficits but do report that she has less energy than normal. Related Data Home Medications Medication Instructions Recorded Confirmed apixaban 5 mg tablet (Eliquis) 5 mg PO BID 02/17/21 08/28/23 calcium carbonate 500 mg calcium 500 mg PO DAILY 02/17/21 08/28/23 (1,250 mg) chewable tablet (Calcium 500) losartan 100 mg tablet 100 mg PO DAILY 02/17/21 08/28/23 acetaminophen 500 mg tablet 500 mg PO Q6H PRN Pain 06/04/21 08/28/23 (Tylenol Extra Strength) atorvastatin 20 mg tablet 20 mg PO HS 02/04/23 08/28/23 escitalopram oxalate 10 mg tablet 20 mg PO DAILY 02/04/23 08/28/23 Allergies Allergy/AdvReac Type Severity Reaction Status Date / Time Penicillins Allergy Rash Verified 12/21/23 23:15 Sulfa (Sulfonamide Allergy Rash Verified 12/21/23 23:15 Antibiotics) Review of Systems Review of Systems: A 10 system review of systems was completed on the patient and is negative except for what is stated in the HPI. Nursing and ancillary documentation was reviewed. [facility] Past Medical History Medical History RUPERT positive Arthritis Atrial fibrillation Encounter for medication management Generalized osteoarthritis of multiple sites Hypertension Inflammatory arthritis Lymphedema CHRIS (obstructive sleep apnea) Family History Family History Father Cerebrovascular accident Social History Social History Smoking packs per day: 0.5 Smoking cigarettes per day: 10.0 Years smoked: 30 Smoking pack-years: 15.00 Smoking status: Former smoker Tobacco type: cigarettes Second hand tobacco smoke exposure: No Alcohol intake: unknown Substance use: unknown Substance use type: does not use Lack of Transportation: No Lack of Food: Never True Current Housing: I Have Housing Concerned About Future Housing: No Difficulty Paying Gas/Electric Bills: No Difficulty Paying for Meds: No Currently Unemployed: No Education: High School Diploma/GED Difficulty w/ Childcare or Family Care: No Spiritual care concerns: No Exam Narrative: GENERAL: Well-appearing, well-nourished, and in no acute distress. HEAD: Normocephalic, atraumatic. EYES: PERRLA and EOMI. ENT: Nares clear, no rhinorrhea or epistaxis. Mucous membranes moist. NECK: Supple. CHEST: Clear to auscultation. No respiratory distress. HEART: Regular rate and rhythm. No murmur heard. Normal peripheral pulses. ABDOMEN: Soft, nontender, nondistended, normal active bowel sounds. EXTREMITIES: Normal range of motion. No edema. SKIN: Warm, dry, no rash. NEURO: No focal deficits. Alert and oriented x3. PSYCH: Normal mood and affect. Course Vital Signs Vital signs: Vital Signs Temperature 37.0 C 12/21/23 22:30 Pulse Rate 89 12/21/23 22:30 Respiratory Rate 20 12/21/23 22:30 Blood Pressure 123/54 L 12/21/23 22:30 Pulse Oximetry 94 12/21/23 22:30 Oxygen Delivery Room Air 12/21/23 22:30 Temperature 37.0 C 12/21/23 22:30 Pulse Rate 97 12/22/23 02:30 Respiratory Rate 20 12/22/23 02:30 Blood Pressure 151/94 H 12/22/23 02:30 Pulse Oximetry 96 12/22/23 02:30 Oxygen Delivery Room Air 12/21/23 22:30 Medical Decision Making MDM Narrative Medical decision lindsey
[2023-12-22 02:30] VITALS: BP 151/94; PULSE 97; RESP 20; TEMP 36.3; O2SAT 96
[2023-12-22 02:41] VITALS: O2SAT 95
[2023-12-22] MEDS: SODIUM CHLORIDE 0.9% IV 1,000 ML 125 ML IV CONT (02:49)
[2023-12-22] MEDS: CEFEPIME 2 GM/NS 50 ML 2 GM/50 ML BAG IVPB ×2 (02:50→13:12)
[2023-12-22] MEDS: VANCOMYCIN 1,250 MG/NS 250 ML 1,250 MG/250 ML BAG 166.67 MG IVPB ×2 (03:52→05:44)
[2023-12-22 04:10] LABS: MRSA (PCR) NOT DETECTED (NOT DETECTE)
[2023-12-22 04:32] VITALS: BMI 35.4
--- NOTE | 2023-12-22 04:41 | ADMGEN ---
This patient, Janie Jorge, was admitted to [facility] Surg Room 331-02. Patient/family oriented to hospital policies and general routines including ID bracelet, bed and alarms, visiting hours, pain management, procedures, bathroom and other care routines, personal items, smoking policy, room service/diet, and visiting hours. Information on how to activate the Rapid Response Team has been discussed. Patient/Family are encouraged to report perceived risks to care and to ask questions if they do not understand what they are told or what they should do.
--- NOTE | 2023-12-22 04:50 | ECG_ITS ---
Measurements Intervals [place] Rate: 83 P: [place]: 0 QRS: -52 QRSD: 118 T: 114 QT: 415 QTc: 488 Interpretive Statements ATRIAL FIBRILLATION LEFT ANTERIOR FASCICULAR BLOCK LEFT VENTRICULAR HYPERTROPHY WITH ST-T CHANGE CANNOT RULE OUT SEPTAL INFARCT, AGE INDETERMINATE BASELINE ARTIFACT- I, II, III, AVR, AVL, AVF, V1-V6 ABNORMAL ECG COMPARED TO ECG 12/21/2023 22:35:37 NO SIGNIFICANT CHANGES Electronically Signed On 12-22-2023 6:44:05 EQUIPMENT SUPERINTENDENT by Sathya Bell D.O.
[2023-12-22 05:49] VITALS: BP 150/74; PULSE 82; RESP 18; TEMP 36.6; O2SAT 98
[2023-12-22 06:12] LABS: Troponin I < 0.012 ng/mL (0.000-0.034)
--- NOTE | 2023-12-22 11:41 | PM.IMHP ---
H&P: HPI History of Present Illness Date/Time: 12/22/23 11:41 Chief Complaint: Patient brought to the ER for evaluation with the generalized weakness and altered mental state Narrative: She is a pleasant lady with chronic medical issues who is a senior living resident. She was recently diagnosed with MRSA UTI which was treated with antibiotics. According to the family, she is getting weak, tired and fatigued with difficulty walking and the having altered mental status. Patient brought to the ER for evaluation, workup was done which chronic interstitial lung disease with superimposed pneumonia. There was no evidence of UTI. Patient also had constipation with retained stool. She is being admitted for IV antibiotics, medical management and further work. Her mentation is improving after treatment in the ER when I saw her on the floor. I spoke with patient and her daughter and answered all their questions. Review of Systems Review of Systems: 14 systems were reviewed with pertinent positives and negatives per HPI. Except as documented in the HPI/progress notes, all other systems were reviewed and are negative. [facility] Past Medical History Medical History (Updated 12/22/23 @ 11:53 by Liam Mcgee MD) RUPERT positive Arthritis Atrial fibrillation Encounter for medication management Generalized osteoarthritis of multiple sites Hypertension Inflammatory arthritis Interstitial lung disease Lymphedema CHRIS (obstructive sleep apnea) Family History Family History Father Cerebrovascular accident Arthritis Heart failure Social History Social History Smoking packs per day: 1 Smoking cigarettes per day: 20.0 Years smoked: 50 Smoking pack-years: 50.00 Smoking status: Former smoker Tobacco type: cigarettes Second hand tobacco smoke exposure: No Alcohol intake: former Drinks per week: 1 Substance use: never Substance use type: does not use Do You Feel Safe in your Home?: Yes Lack of Transportation: No Lack of Food: Never True Current Housing: I Have Housing Concerned About Future Housing: No Difficulty Paying Gas/Electric Bills: No Difficulty Paying for Meds: No Currently Unemployed: No Education: High School Diploma/GED Difficulty w/ Childcare or Family Care: No Spiritual care concerns: No Meds Home Medications and Allergies Home Medications Medication Instructions Recorded Confirmed Type apixaban 5 mg tablet (Eliquis) 5 mg PO BID 02/17/21 12/22/23 History losartan 100 mg tablet 100 mg PO DAILY 02/17/21 12/22/23 History acetaminophen 500 mg tablet 500 mg PO Q6H PRN Pain 06/04/21 12/22/23 History (Tylenol Extra Strength) atorvastatin 20 mg tablet 20 mg PO HS 02/04/23 12/22/23 History escitalopram oxalate 10 mg tablet 20 mg PO DAILY 02/04/23 12/22/23 History Vitamin B-1 300 mg PO HS 12/22/23 12/22/23 History acetyltyrosine-vitamin B6 25 mg PO DAILY 12/22/23 12/22/23 History docusate sodium 100 mg capsule 100 mg PO 3XW 12/22/23 12/22/23 History trimethoprim 100 mg tablet 100 mg PO HS 12/22/23 12/22/23 History Allergies Allergy/AdvReac Type Severity Reaction Status Date / Time Penicillins Allergy Rash Verified 12/22/23 09:16 Sulfa (Sulfonamide Allergy Rash Verified 12/22/23 05:37 Antibiotics) Vital Signs Vital Signs - 24 hr 12/21/23 22:30 12/21/23 23:39 12/21/23 23:43 Temperature 37.0 C Pulse Rate 89 85 87 Respiratory Rate 20 17 Blood Pressure 123/54 L 130/60 Pulse Oximetry 94 98 Oxygen Delivery Room Air 12/21/23 23:46 12/22/23 02:30 12/22/23 02:41 Temperature 36.3 C L Pulse Rate 78 97 Respiratory Rate 25 H 20 Blood Pressure 146/83 H 151/94 H Pulse Oximetry 99 96 95 Oxygen Delivery Room Air 12/22/23 05:49 12/22/23 08:35 Temperature 36.6 C Pulse Rate 82 Respiratory Rate 18 Blood Pressure 150/74 H Pulse Oximetry 98 Oxyge
[2023-12-22] MEDS: AZITHROMYCIN 500 MG/NS 250 ML 500 MG/250 ML BAG 250 MG IVPB (11:48)
[2023-12-22 12:00] VITALS: BP 171/85; PULSE 79; PULSE 83; RESP 34; TEMP 36.6; O2SAT 94
--- NOTE | 2023-12-22 13:12 | PCCCNOTE ---
On 12/22/23, the student, Apple Castañeda, provided care and completed [facility] documentation on this patient. I have reviewed the student's documentation and agree with the findings.
[2023-12-22 16:00] VITALS: BP 165/62; PULSE 82; RESP 22; TEMP 36.7; O2SAT 95
[2023-12-22] MEDS: SODIUM CHLORIDE 0.9% IV 1,000 ML 75 ML IV CONT (17:02)
[2023-12-22 20:00] VITALS: BP 139/75; PULSE 79; RESP 16; TEMP 36.9; O2SAT 97
[2023-12-23] VITALS (9 sets, daily range): BP systolic 129–198; BP diastolic 68–104; PULSE 79–83; RESP 16–24; TEMP 36.3–36.9; O2SAT 94–98
[2023-12-23] MEDS: SODIUM CHLORIDE 0.9% IV 1,000 ML 75 ML IV CONT ×2 (02:40→14:12)
[2023-12-23] MEDS: CEFEPIME 2 GM/NS 50 ML 2 GM/50 ML BAG IVPB ×2 (02:41→14:11)
[2023-12-23 06:32] LABS: Basophils Absolute Auto 0.1 K/mm3 (0.0-0.1); Basophils Percent Auto 0.5 % (0.2-1.2); Eosinophils Absolute Auto 0.2 K/mm3 (0-0.3); Eosinophils Percent Auto 1.7 % (0-4.4); Hematocrit 43.5 % (37.0-47.0); Immature Granulocyte Absolute 0.03 K/mm3 (0.00-0.031); Immature Granulocyte Percent A 0.3 % (0-0.5); Lymphocytes Absolute Auto 0.84 K/mm3 (0.9-3.2); Mean Corpuscular HGB Conc 32.2 g/dl (32-36); Mean Corpuscular Hemoglobin 30.2 pg (26-34); Mean Corpuscular Volume 93.8 fl (80-100); Mean Platelet Volume 10.5 fl (7.4-10.4); Monocytes Absolute Auto 0.6 K/mm3 (0.1-0.6); Monocytes Percent Auto 6.8 % (2.6-8.5); Neutrophils Absolute Auto 7.6 K/mm3 (1.3-6.7); Neutrophils Percent Auto 81.7 % (45.5-73.1); Platelet Count Result 237 k/mm3 (150-375); Red Blood Count 4.64 M/mm3 (4.2-5.4); Red Cell Distribution Width 14.2 % (11.5-14.5); White Blood Count 9.3 K/mm3 (4.5-10.0)
[2023-12-23 06:47] LABS: Anion Gap 8 mmol/L (8-16); Blood Urea Nitrogen 11 mg/dL (7-17); Calcium 9.1 mg/dL (8.4-10.2); Carbon Dioxide 25 mmol/L (22-30); Chloride 105 mmol/L (98-107); Estimated CRCL calculation 85 ml/min; Estimated Glomerular Filt Rate > 60; Glucose 100 mg/dL (65-110); Magnesium 2.2 mg/dL (1.6-2.3); Phosphorus 3.2 mg/dL (2.5-4.5); Potassium 3.4 mmol/L (3.4-5.0); Sodium 138 mmol/L (137-145)
[2023-12-23] MEDS: AZITHROMYCIN 500 MG/NS 250 ML 500 MG/250 ML BAG 250 MG IVPB (09:00)
[2023-12-23] MEDS: polyethylene glycoL 3350 17 GM POWD.PACK PO (09:01)
[2023-12-23] MEDS: ENOXAPARIN 40 MG/0.4 ML SYRINGE SUB-Q (09:01)
--- NOTE | 2023-12-23 17:15 | PM.IMPN ---
Progress Note: A&P Assessment and Plan (1) Pneumonia: Code(s): J18.9 - Pneumonia, unspecified organism Status: Acute (2) Altered mental status: Code(s): R41.82 - Altered mental status, unspecified Status: Acute (3) Leukocytosis: Code(s): D72.829 - Elevated white blood cell count, unspecified Status: Acute (4) Constipation: Code(s): K59.00 - Constipation, unspecified Status: Acute (5) Gait abnormality: Code(s): R26.9 - Unspecified abnormalities of gait and mobility Status: Acute (6) Debilitated: Code(s): R53.81 - Other malaise Status: Acute (7) Hyperlipidemia: Code(s): E78.5 - Hyperlipidemia, unspecified Status: Acute (8) Diastolic congestive heart failure: Code(s): I50.30 - Unspecified diastolic (congestive) heart failure Status: Acute (9) Generalized weakness: Code(s): R53.1 - Weakness Status: Acute (10) Recurrent falls: Code(s): R29.6 - Repeated falls Status: Acute (11) Impaired mobility and ADLs: Code(s): Z74.09 - Other reduced mobility; Z78.9 - Other specified health status Status: Acute (12) Unsteady gait: Code(s): R26.81 - Unsteadiness on feet Status: Acute (13) Compression fracture of T10 vertebra: Code(s): S22.070A - Wedge compression fracture of T9-T10 vertebra, initial encounter for closed fracture Status: Acute (14) CHRIS (obstructive sleep apnea): Code(s): G47.33 - Obstructive sleep apnea (adult) (pediatric) Status: Acute (15) Inflammatory arthritis: Code(s): M19.90 - Unspecified osteoarthritis, unspecified site Status: Acute (16) RUPERT positive: Code(s): R76.8 - Other specified abnormal immunological findings in serum Status: Acute (17) Interstitial lung disease: Code(s): J84.9 - Interstitial pulmonary disease, unspecified Status: Acute Plan Admit patient to medical unit under full inpatient status Patient has X-ray and clinical findings consistent with chronic interstitial lung disease with bilateral pneumonia Patient started on IV antibiotics in the form of IV cefepime and vancomycin in the ED Nasal swab was done which ruled out MRSA Patient had recently been diagnosed with MRSA UTI which has been treated with antibiotics and there is no evidence of UTI on urine analysis Continue with IV cefepime, DC vancomycin and replace with IV Zithromax Patient had leukocytosis with WBC 21.2 with left shift on admission ... Downtrended to 9.3 today Monitor WBC count closely Follow-up on blood and sputum cultures sent from ER Patient received 1 L of IV hydration in the ER and started on saline at 125 cc/hour Cut down on IV fluids to normal saline 75 cc an hour on the floor Strict I&Os Oxygen via nasal cannula to keep O2 sats around 94% Encouraged patient regarding adequate hydration given her multiple episodes of recurrent pneumonia Patient given for constipation for retained stool the rectum and constipation Will start patient on MiraLax 17 grams p.o. daily Continue with the DuoNeb breathing treatments on the floor as needed Encourage ambulation on the floor DC patient back to facility on oral antibiotics when patient is clinically stable and breathing is back to baseline ? Patient seen and examined at bedside during my morning rounds ? Collaborated with patient's nurse at the bedside in detail and addressed all concerns ? Labs, electrolytes, radiology, investigations and test results reviewed ? Consult/Nursing/Ancilliary notes on the chart reviewed and appreciated ? Spoke with patient/daughter at the bedside and answered all the questions that they had Repeat labs in a.m. Electrolyte replacement as per protocol. Patient will be monitored very closely on the floor. Further recommendations as per the hospital course. Time Spent With Patient Time with patient: 15 - 25 minutes Subjective Date/time seen
[2023-12-23] MEDS: LOSARTAN POTASSIUM 100 MG TABLET PO (22:46)
[2023-12-24] VITALS: BP 157/85; PULSE 76; RESP 18; TEMP 36.4; O2SAT 95
[2023-12-24] MEDS: CEFEPIME 2 GM/NS 50 ML 2 GM/50 ML BAG IVPB ×2 (03:43→16:09)
[2023-12-24] MEDS: SODIUM CHLORIDE 0.9% IV 1,000 ML 75 ML IV CONT ×2 (03:43→16:09)
[2023-12-24 04:00] VITALS: BP 128/80; PULSE 79; RESP 20; TEMP 36.5; O2SAT 95
[2023-12-24 06:07] LABS: Basophils Absolute Auto 0.1 K/mm3 (0.0-0.1); Basophils Percent Auto 0.6 % (0.2-1.2); Eosinophils Absolute Auto 0.2 K/mm3 (0-0.3); Eosinophils Percent Auto 2.1 % (0-4.4); Hematocrit 45.3 % (37.0-47.0); Hemoglobin 14.2 g/dL (12.0-15.0); Immature Granulocyte Absolute 0.02 K/mm3 (0.00-0.031); Immature Granulocyte Percent A 0.3 % (0-0.5); Lymphocytes Absolute Auto 0.92 K/mm3 (0.9-3.2); Lymphocytes Percent Auto 11.5 % (18.3-44.2); Mean Corpuscular HGB Conc 31.3 g/dl (32-36); Mean Corpuscular Hemoglobin 29.5 pg (26-34); Mean Platelet Volume 10.4 fl (7.4-10.4); Monocytes Absolute Auto 0.5 K/mm3 (0.1-0.6); Monocytes Percent Auto 6.4 % (2.6-8.5); Neutrophils Absolute Auto 6.3 K/mm3 (1.3-6.7); Neutrophils Percent Auto 79.1 % (45.5-73.1); Platelet Count Result 284 k/mm3 (150-375); Red Blood Count 4.82 M/mm3 (4.2-5.4)
[2023-12-24 06:18] LABS: Anion Gap 4 mmol/L (8-16); Blood Urea Nitrogen 11 mg/dL (7-17); Calcium 9.2 mg/dL (8.4-10.2); Carbon Dioxide 27 mmol/L (22-30); Chloride 104 mmol/L (98-107); Estimated CRCL calculation 85 ml/min; Estimated Glomerular Filt Rate > 60; Glucose 106 mg/dL (65-110); Potassium 3.7 mmol/L (3.4-5.0); Sodium 135 mmol/L (137-145)
[2023-12-24 08:00] VITALS: BP 147/68; PULSE 77; RESP 32; TEMP 36.3; O2SAT 95
[2023-12-24] MEDS: AZITHROMYCIN 500 MG/NS 250 ML 500 MG/250 ML BAG 250 MG IVPB (08:26)
[2023-12-24] MEDS: ESCITALOPRAM OXALATE 10 MG TABLET 20 MG PO (08:27)
[2023-12-24] MEDS: LOSARTAN POTASSIUM 100 MG TABLET PO (08:27)
[2023-12-24] MEDS: APIXABAN 5 MG TABLET PO ×2 (08:27→20:30)
[2023-12-24] MEDS: polyethylene glycoL 3350 17 GM POWD.PACK PO (08:28)
[2023-12-24 12:00] VITALS: BP 145/98; PULSE 93; RESP 26; TEMP 36.6; O2SAT 94
--- NOTE | 2023-12-24 16:30 | PM.IMPN ---
Progress Note: A&P Assessment and Plan (1) Pneumonia: Code(s): J18.9 - Pneumonia, unspecified organism Status: Acute (2) Altered mental status: Code(s): R41.82 - Altered mental status, unspecified Status: Acute (3) Leukocytosis: Code(s): D72.829 - Elevated white blood cell count, unspecified Status: Acute (4) Constipation: Code(s): K59.00 - Constipation, unspecified Status: Acute (5) Gait abnormality: Code(s): R26.9 - Unspecified abnormalities of gait and mobility Status: Acute (6) Debilitated: Code(s): R53.81 - Other malaise Status: Acute (7) Hyperlipidemia: Code(s): E78.5 - Hyperlipidemia, unspecified Status: Acute (8) Diastolic congestive heart failure: Code(s): I50.30 - Unspecified diastolic (congestive) heart failure Status: Acute (9) Generalized weakness: Code(s): R53.1 - Weakness Status: Acute (10) Recurrent falls: Code(s): R29.6 - Repeated falls Status: Acute (11) Impaired mobility and ADLs: Code(s): Z74.09 - Other reduced mobility; Z78.9 - Other specified health status Status: Acute (12) Unsteady gait: Code(s): R26.81 - Unsteadiness on feet Status: Acute (13) Compression fracture of T10 vertebra: Code(s): S22.070A - Wedge compression fracture of T9-T10 vertebra, initial encounter for closed fracture Status: Acute (14) CHRIS (obstructive sleep apnea): Code(s): G47.33 - Obstructive sleep apnea (adult) (pediatric) Status: Acute (15) Inflammatory arthritis: Code(s): M19.90 - Unspecified osteoarthritis, unspecified site Status: Acute (16) RUPERT positive: Code(s): R76.8 - Other specified abnormal immunological findings in serum Status: Acute (17) Interstitial lung disease: Code(s): J84.9 - Interstitial pulmonary disease, unspecified Status: Acute Plan Admit patient to medical unit under full inpatient status Patient has X-ray and clinical findings consistent with chronic interstitial lung disease with bilateral pneumonia Patient started on IV antibiotics in the form of IV cefepime and vancomycin in the ED Nasal swab was done which ruled out MRSA Patient had recently been diagnosed with MRSA UTI which has been treated with antibiotics and there is no evidence of UTI on urine analysis Urine culture is negative Continue with IV cefepime, DC vancomycin and replace with IV Zithromax Patient had leukocytosis with WBC 21.2 with left shift on admission ... Downtrended to 8 today Monitor WBC count closely Follow-up on blood and sputum cultures sent from ER Patient received 1 L of IV hydration in the ER and started on saline at 125 cc/hour Cut down on IV fluids to normal saline 75 cc an hour on the floor ... DC'd 12/24/2023 Strict I&Os Oxygen via nasal cannula to keep O2 sats around 94% Encouraged patient regarding adequate hydration given her multiple episodes of recurrent pneumonia Patient given for constipation for retained stool the rectum and constipation Will start patient on MiraLax 17 grams p.o. daily Continue with the DuoNeb breathing treatments on the floor as needed Encourage ambulation on the floor Spoke with Care coordination in detail... Patient has difficulty and would be better served with half-way facility placement DC patient to SNF on oral antibiotics when patient is clinically stable and breathing is back to baseline ... Likely in a.m. after arrangements are made by care coordination ? Patient seen and examined at bedside during my morning rounds ? Collaborated with patient's nurse at the bedside in detail and addressed all concerns ? Labs, electrolytes, radiology, investigations and test results reviewed ? Consult/Nursing/Ancilliary notes on the chart reviewed and appreciated ? Spoke with patient/daughter at the bedside and answered all the questions that they had Repeat labs in a.m
[2023-12-24 20:00] VITALS: BP 151/84; PULSE 82; RESP 18; TEMP 36.6; O2SAT 94
[2023-12-24] MEDS: ATORVASTATIN 20 MG TABLET PO (20:30)
[2023-12-24 21:36] VITALS: PULSE 87; RESP 29; O2SAT 99
[2023-12-25] VITALS (8 sets, daily range): BP systolic 114–146; BP diastolic 73–98; PULSE 70–114; RESP 18–32; TEMP 36.2–36.4; O2SAT 93–98
[2023-12-25] MEDS: CEFEPIME 2 GM/NS 50 ML 2 GM/50 ML BAG IVPB ×2 (03:06→15:47)
[2023-12-25 07:00] LABS: Basophils Absolute Auto 0.1 K/mm3 (0.0-0.1); Basophils Percent Auto 0.6 % (0.2-1.2); Eosinophils Absolute Auto 0.1 K/mm3 (0-0.3); Eosinophils Percent Auto 1.2 % (0-4.4); Hematocrit 44.3 % (37.0-47.0); Immature Granulocyte Absolute 0.03 K/mm3 (0.00-0.031); Immature Granulocyte Percent A 0.4 % (0-0.5); Lymphocytes Absolute Auto 1.29 K/mm3 (0.9-3.2); Lymphocytes Percent Auto 15.6 % (18.3-44.2); Mean Corpuscular HGB Conc 31.6 g/dl (32-36); Mean Corpuscular Hemoglobin 29.6 pg (26-34); Mean Corpuscular Volume 93.7 fl (80-100); Mean Platelet Volume 10.4 fl (7.4-10.4); Monocytes Absolute Auto 0.7 K/mm3 (0.1-0.6); Monocytes Percent Auto 7.9 % (2.6-8.5); Neutrophils Absolute Auto 6.2 K/mm3 (1.3-6.7); Neutrophils Percent Auto 74.3 % (45.5-73.1); Platelet Count Result 286 k/mm3 (150-375); Red Blood Count 4.73 M/mm3 (4.2-5.4); White Blood Count 8.3 K/mm3 (4.5-10.0)
[2023-12-25 07:14] LABS: Anion Gap 9 mmol/L (8-16); Blood Urea Nitrogen 13 mg/dL (7-17); Carbon Dioxide 21 mmol/L (22-30); Chloride 104 mmol/L (98-107); Estimated CRCL calculation 85 ml/min; Estimated Glomerular Filt Rate > 60; Glucose 90 mg/dL (65-110); Potassium 3.7 mmol/L (3.4-5.0); Sodium 134 mmol/L (137-145)
[2023-12-25] MEDS: SODIUM CHLORIDE 0.9% IV 1,000 ML 75 ML IV CONT (07:26)
[2023-12-25] MEDS: ESCITALOPRAM OXALATE 10 MG TABLET 20 MG PO (08:38)
[2023-12-25] MEDS: LOSARTAN POTASSIUM 100 MG TABLET PO (08:38)
[2023-12-25] MEDS: AZITHROMYCIN 500 MG/NS 250 ML 500 MG/250 ML BAG 250 MG IVPB (08:38)
[2023-12-25] MEDS: APIXABAN 5 MG TABLET PO ×2 (08:38→20:21)
[2023-12-25] MEDS: DOCUSATE SODIUM 100 MG CAPSULE PO (08:40)
--- NOTE | 2023-12-25 09:19 | PM.IMPN ---
Progress Note: A&P Assessment and Plan (1) Pneumonia: Code(s): J18.9 - Pneumonia, unspecified organism Status: Acute Assessment and Plan: Treated with IV antibiotics (2) Altered mental status: Code(s): R41.82 - Altered mental status, unspecified Status: Acute Assessment and Plan: Probably related to pneumonia continue to monitor (3) Leukocytosis: Code(s): D72.829 - Elevated white blood cell count, unspecified Status: Acute Assessment and Plan: Improved (4) Constipation: Code(s): K59.00 - Constipation, unspecified Status: Acute Assessment and Plan: Laxative (5) Gait abnormality: Code(s): R26.9 - Unspecified abnormalities of gait and mobility Status: Acute Assessment and Plan: PT OT eval (6) Debilitated: Code(s): R53.81 - Other malaise Status: Acute Assessment and Plan: PT OT evaluate a difficult placement (7) Hyperlipidemia: Code(s): E78.5 - Hyperlipidemia, unspecified Status: Acute Assessment and Plan: Continue home medication (8) Diastolic congestive heart failure: Code(s): I50.30 - Unspecified diastolic (congestive) heart failure Status: Acute Assessment and Plan: Stable avoid fluid overload (9) Generalized weakness: Code(s): R53.1 - Weakness Status: Acute Assessment and Plan: Continue PT OT evaluation (10) Recurrent falls: Code(s): R29.6 - Repeated falls Status: Acute Assessment and Plan: Fall precaution PT OT evaluation (11) Impaired mobility and ADLs: Code(s): Z74.09 - Other reduced mobility; Z78.9 - Other specified health status Status: Acute Assessment and Plan: As above (12) Unsteady gait: Code(s): R26.81 - Unsteadiness on feet Status: Acute Assessment and Plan: As above (13) Compression fracture of T10 vertebra: Code(s): S22.070A - Wedge compression fracture of T9-T10 vertebra, initial encounter for closed fracture Status: Acute Assessment and Plan: Pain control (14) CHRIS (obstructive sleep apnea): Code(s): G47.33 - Obstructive sleep apnea (adult) (pediatric) Status: Acute Assessment and Plan: Resume home medication (15) Inflammatory arthritis: Code(s): M19.90 - Unspecified osteoarthritis, unspecified site Status: Acute Assessment and Plan: Pain control (16) RUPERT positive: Code(s): R76.8 - Other specified abnormal immunological findings in serum Status: Acute Assessment and Plan: Follow-up with PCP as outpatient recommend dermatology eval septic (17) Interstitial lung disease: Code(s): J84.9 - Interstitial pulmonary disease, unspecified Status: Acute Assessment and Plan: Management as above Plan Patient was found to have pneumonia treated with IV antibiotics currently on IV cefepime IV azithromycin Continue with IV cefepime, DC vancomycin and replace with IV Zithromax Patient had leukocytosis with WBC 21.2 with left shift on admission ... Downtrended to 8 today Monitor WBC count closely Status post IV hydration Insert patient give laxative Time Spent With Patient Time with patient: 15 - 25 minutes Subjective Date/time seen: 12/25/23 09:19 Interval history: Patient seen and examined Patient feels weak complains of generalized pain Patient denies fever headache chest pain shortness of breath Exam Narrative: Generalized weakness Chest decreased air entry bilateral Abdomen nontender nondistended CVS S1 + S2 Lower extremity edema Objective Data Vital Signs Vital Signs: Vital Signs - 24 hr 12/24/23 12:00 12/24/23 20:00 12/24/23 21:36 Temperature 97.8 F 97.9 F Pulse Rate 93 82 87 Respiratory Rate 26 H 18 29 H Blood Pressure 145/98 H 151/84 H Pulse Oximetry 94 94 99 Oxygen Delivery Autopap 12/25/23 00:00 12/25/23 03:01 0
[2023-12-25] MEDS: FUROSEMIDE INJ 40 MG/4 ML VIAL IV PUSH (10:30)
[2023-12-25] MEDS: ACETAMINOPHEN 325 MG TABLET 650 MG PO (14:22)
[2023-12-25 19:44] LABS: Glucose Point of Care 273 mg/dl (65-105)
[2023-12-25] MEDS: ATORVASTATIN 20 MG TABLET PO (20:21)
[2023-12-25] MEDS: IPRATROPIUM BR 0.02% INH SOLN 0.5 MG/2.5 ML VIAL INHALATION (20:34)
[2023-12-25] MEDS: ALBUTEROL SULFATE NEB 2.5 MG/3 ML INH INHALATION (20:34)
[2023-12-26] VITALS (9 sets, daily range): BP systolic 115–143; BP diastolic 56–77; PULSE 73–95; RESP 18–21; TEMP 35.8–36.5; O2SAT 96–99
[2023-12-26] MEDS: SODIUM CHLORIDE 0.9% IV 1,000 ML 75 ML IV CONT (02:42)
[2023-12-26] MEDS: IPRATROPIUM BR 0.02% INH SOLN 0.5 MG/2.5 ML VIAL INHALATION (05:32)
[2023-12-26] MEDS: ALBUTEROL SULFATE NEB 2.5 MG/3 ML INH INHALATION (05:33)
[2023-12-26] MEDS: CEFDINIR 300 MG CAPSULE PO ×2 (06:15→18:00)
[2023-12-26 07:13] LABS: Basophils Percent Auto 0.2 % (0.2-1.2); Hematocrit 43.6 % (37.0-47.0); Hemoglobin 13.8 g/dL (12.0-15.0); Immature Granulocyte Absolute 0.11 K/mm3 (0.00-0.031); Immature Granulocyte Percent A 0.7 % (0-0.5); Lymphocytes Absolute Auto 0.68 K/mm3 (0.9-3.2); Lymphocytes Percent Auto 4.2 % (18.3-44.2); Mean Corpuscular HGB Conc 31.7 g/dl (32-36); Mean Corpuscular Hemoglobin 29.8 pg (26-34); Mean Corpuscular Volume 94.2 fl (80-100); Mean Platelet Volume 10.8 fl (7.4-10.4); Monocytes Absolute Auto 1.2 K/mm3 (0.1-0.6); Monocytes Percent Auto 7.4 % (2.6-8.5); Neutrophils Absolute Auto 14.1 K/mm3 (1.3-6.7); Neutrophils Percent Auto 87.5 % (45.5-73.1); Platelet Count Result 274 k/mm3 (150-375); Red Blood Count 4.63 M/mm3 (4.2-5.4); Red Cell Distribution Width 13.9 % (11.5-14.5); White Blood Count 16.1 K/mm3 (4.5-10.0)
[2023-12-26 07:25] LABS: Alanine Aminotransferase 61 U/L (6-35); Albumin Level 3.3 g/dL (3.5-5.1); Alkaline Phosphatase 91 U/L (38-126); Anion Gap 4 mmol/L (8-16); Aspartate Amino Transferase 46 U/L (14-36); Bilirubin,Total 1.5 mg/dL (0.2-1.3); Blood Urea Nitrogen 11 mg/dL (7-17); Carbon Dioxide 32 mmol/L (22-30); Chloride 97 mmol/L (98-107); Estimated CRCL calculation 72 ml/min; Estimated Glomerular Filt Rate > 60; Glucose 109 mg/dL (65-110); Potassium 3.2 mmol/L (3.4-5.0); Sodium 133 mmol/L (137-145)
[2023-12-26] MEDS: polyethylene glycoL 3350 17 GM POWD.PACK PO (08:39)
[2023-12-26] MEDS: LOSARTAN POTASSIUM 100 MG TABLET PO (08:40)
[2023-12-26] MEDS: ESCITALOPRAM OXALATE 10 MG TABLET 20 MG PO (08:40)
[2023-12-26] MEDS: APIXABAN 5 MG TABLET PO ×2 (08:40→21:04)
[2023-12-26] MEDS: AZITHROMYCIN 250 MG TABLET 500 MG PO (08:41)
--- NOTE | 2023-12-26 09:29 | PM.IMPN ---
Progress Note: A&P Assessment and Plan (1) Pneumonia: Code(s): J18.9 - Pneumonia, unspecified organism Status: Acute Assessment and Plan: Treated with IV cefepime culture negative so far patient was switched to oral antibiotic (2) Altered mental status: Code(s): R41.82 - Altered mental status, unspecified Status: Acute Assessment and Plan: Probably related to pneumonia resolved back to baseline r (3) Leukocytosis: Code(s): D72.829 - Elevated white blood cell count, unspecified Status: Acute Assessment and Plan: Worsening today repeat CBC in the morning probably reactive if no improvement will get repeat chest x-ray (4) Constipation: Code(s): K59.00 - Constipation, unspecified Status: Acute Assessment and Plan: Improved continue laxative (5) Gait abnormality: Code(s): R26.9 - Unspecified abnormalities of gait and mobility Status: Acute Assessment and Plan: PT OT eval (6) Debilitated: Code(s): R53.81 - Other malaise Status: Acute Assessment and Plan: PT OT evaluate a difficult placement (7) Hyperlipidemia: Code(s): E78.5 - Hyperlipidemia, unspecified Status: Acute Assessment and Plan: Continue home medication (8) Diastolic congestive heart failure: Code(s): I50.30 - Unspecified diastolic (congestive) heart failure Status: Acute Assessment and Plan: Acute on top of chronic diastolic CHF exacerbation developed during hospitalization continue IV diuresis (9) Generalized weakness: Code(s): R53.1 - Weakness Status: Acute Assessment and Plan: Continue PT OT evaluation (10) Recurrent falls: Code(s): R29.6 - Repeated falls Status: Acute Assessment and Plan: Fall precaution PT OT evaluation (11) Impaired mobility and ADLs: Code(s): Z74.09 - Other reduced mobility; Z78.9 - Other specified health status Status: Acute Assessment and Plan: As above (12) Unsteady gait: Code(s): R26.81 - Unsteadiness on feet Status: Acute Assessment and Plan: As above (13) Compression fracture of T10 vertebra: Code(s): S22.070A - Wedge compression fracture of T9-T10 vertebra, initial encounter for closed fracture Status: Acute Assessment and Plan: Pain control (14) CHRIS (obstructive sleep apnea): Code(s): G47.33 - Obstructive sleep apnea (adult) (pediatric) Status: Acute Assessment and Plan: Resume home medication (15) Inflammatory arthritis: Code(s): M19.90 - Unspecified osteoarthritis, unspecified site Status: Acute Assessment and Plan: Pain control (16) RUPERT positive: Code(s): R76.8 - Other specified abnormal immunological findings in serum Status: Acute Assessment and Plan: Follow-up with PCP as outpatient recommend dermatology eval septic (17) Interstitial lung disease: Code(s): J84.9 - Interstitial pulmonary disease, unspecified Status: Acute Assessment and Plan: Management as above Plan Leukocytosis worsening probably reactive monitor if no improvement consider CT scan of the chest Continue diuresis today Anticipate discharge on 12/28/2023 to rehab Subjective Date/time seen: 12/26/23 09:29 Interval history: Patient seen and examined Lower extremity swelling shortness of breath has improved with diuresis Patient has hypokalemia replace today Patient denies fever headache chest pain shortness of breath I am seeing patient for hypokalemia Exam Narrative: Generalized weakness Chest decreased air entry bilateral Abdomen nontender nondistended CVS S1 + S2 Lower extremity edema Objective Data Vital Signs Vital Signs: Vital Signs - 24 hr 12/25/23 12:00 12/25/23 16:00 12/25/23 20:36 Temperature 97.2 F L 97.1 F L Pulse Rate 80 114 H Respiratory Rate 30 H 26 H 24 H Blo
--- NOTE | 2023-12-26 11:00 | P.CDI_ITS ---
CDI Query Clarification Request Documentation in the medical record indicates that this patient has been diagnosed as having the symptoms of ALTERED MENTAL STATUS. Additional findings also documented in the medical record include: * Pneumonia * Patient started on IV Cefepime. * Leukocytosis Based on your medical judgement, can you further clarify in the progress notes if these findings associated altered mental status are due to a definite or suspected underlying neurologic cause such as: * Metabolic Encephalopathy * Toxic Encephalopathy * Altered mental status without encephalopathy * Other conditions ( Please specify) * None of the above. <Janene Simon RN - Last Filed: 12/26/23 11:12> Clarified Diagnosis Clarified Diagnosis: Metabolic Encephalopathy <Kenton Costello MD - Last Filed: 12/26/23 12:40>
--- NOTE | 2023-12-26 11:00 | WPDCDIQUERY2 ---
CDI Query Clarification Request Documentation in the medical record indicates that this patient has been diagnosed as having the symptoms of ALTERED MENTAL STATUS. Additional findings also documented in the medical record include: Pneumonia Patient started on IV Cefepime. Leukocytosis Based on your medical judgement, can you further clarify in the progress notes if these findings associated altered mental status are due to a definite or suspected underlying neurologic cause such as: Metabolic Encephalopathy Toxic Encephalopathy Altered mental status without encephalopathy Other conditions ( Please specify) None of the above. <Janene Simon RN - Last Filed: 12/26/23 11:12> Clarified Diagnosis Clarified Diagnosis: Metabolic Encephalopathy <Kenton Costello MD - Last Filed: 12/26/23 12:40>
[2023-12-26] MEDS: FUROSEMIDE INJ 40 MG/4 ML VIAL IV PUSH (11:14)
[2023-12-26] MEDS: POTASSIUM CHLORIDE 20 MEQ ER TABLET 40 MEQ PO ×2 (11:14→15:48)
[2023-12-26] MEDS: ACETAMINOPHEN 325 MG TABLET 650 MG PO (11:15)
[2023-12-26] MEDS: ATORVASTATIN 20 MG TABLET PO (21:04)
[2023-12-27] VITALS (10 sets, daily range): BP systolic 129–149; BP diastolic 60–90; PULSE 80–110; RESP 18–20; TEMP 35.4–36.6; O2SAT 93–98
[2023-12-27] MEDS: IPRATROPIUM BR 0.02% INH SOLN 0.5 MG/2.5 ML VIAL INHALATION (04:43)
[2023-12-27] MEDS: ALBUTEROL SULFATE NEB 2.5 MG/3 ML INH INHALATION (04:43)
[2023-12-27] MEDS: CEFDINIR 300 MG CAPSULE PO ×2 (06:24→17:07)
[2023-12-27 06:31] LABS: Basophils Percent Auto 0.2 % (0.2-1.2); Eosinophils Percent Auto 0.3 % (0-4.4); Hematocrit 44.2 % (37.0-47.0); Hemoglobin 14.1 g/dL (12.0-15.0); Immature Granulocyte Absolute 0.08 K/mm3 (0.00-0.031); Immature Granulocyte Percent A 0.6 % (0-0.5); Lymphocytes Absolute Auto 0.56 K/mm3 (0.9-3.2); Lymphocytes Percent Auto 4.1 % (18.3-44.2); Mean Corpuscular HGB Conc 31.9 g/dl (32-36); Mean Corpuscular Hemoglobin 30.1 pg (26-34); Mean Corpuscular Volume 94.2 fl (80-100); Mean Platelet Volume 10.9 fl (7.4-10.4); Monocytes Absolute Auto 0.9 K/mm3 (0.1-0.6); Monocytes Percent Auto 6.9 % (2.6-8.5); Neutrophils Absolute Auto 11.9 K/mm3 (1.3-6.7); Neutrophils Percent Auto 87.9 % (45.5-73.1); Platelet Count Result 261 k/mm3 (150-375); Red Blood Count 4.69 M/mm3 (4.2-5.4); Red Cell Distribution Width 14.1 % (11.5-14.5); White Blood Count 13.5 K/mm3 (4.5-10.0)
[2023-12-27 06:46] LABS: Alanine Aminotransferase 45 U/L (6-35); Albumin Level 3.4 g/dL (3.5-5.1); Alkaline Phosphatase 99 U/L (38-126); Anion Gap 8 mmol/L (8-16); Aspartate Amino Transferase 30 U/L (14-36); Bilirubin,Total 1.4 mg/dL (0.2-1.3); Blood Urea Nitrogen 14 mg/dL (7-17); Calcium 9.2 mg/dL (8.4-10.2); Carbon Dioxide 28 mmol/L (22-30); Chloride 96 mmol/L (98-107); Estimated CRCL calculation 85 ml/min; Estimated Glomerular Filt Rate > 60; Glucose 131 mg/dL (65-110); Potassium 3.3 mmol/L (3.4-5.0); Sodium 132 mmol/L (137-145)
[2023-12-27] MEDS: FUROSEMIDE 40 MG TABLET PO (08:56)
[2023-12-27] MEDS: LOSARTAN POTASSIUM 100 MG TABLET PO (08:56)
[2023-12-27] MEDS: APIXABAN 5 MG TABLET PO ×2 (08:56→19:59)
[2023-12-27] MEDS: ESCITALOPRAM OXALATE 10 MG TABLET 20 MG PO (08:56)
[2023-12-27] MEDS: polyethylene glycoL 3350 17 GM POWD.PACK PO (08:57)
--- NOTE | 2023-12-27 14:09 | PM.DS ---
DS: Discharge Diagnosis Discharge Diagnosis (1) Pneumonia: Code(s): J18.9 - Pneumonia, unspecified organism Status: Acute Assessment and Plan: Treated with IV cefepime culture negative so far patient was switched to oral antibiotic (2) Altered mental status: Code(s): R41.82 - Altered mental status, unspecified Status: Acute Assessment and Plan: Probably related to pneumonia resolved back to baseline r (3) Leukocytosis: Code(s): D72.829 - Elevated white blood cell count, unspecified Status: Acute Assessment and Plan: Worsening today repeat CBC in the morning probably reactive if no improvement will get repeat chest x-ray (4) Constipation: Code(s): K59.00 - Constipation, unspecified Status: Acute Assessment and Plan: Improved continue laxative (5) Gait abnormality: Code(s): R26.9 - Unspecified abnormalities of gait and mobility Status: Acute Assessment and Plan: PT OT eval (6) Debilitated: Code(s): R53.81 - Other malaise Status: Acute Assessment and Plan: PT OT evaluate a difficult placement (7) Hyperlipidemia: Code(s): E78.5 - Hyperlipidemia, unspecified Status: Acute Assessment and Plan: Continue home medication (8) Diastolic congestive heart failure: Code(s): I50.30 - Unspecified diastolic (congestive) heart failure Status: Acute Assessment and Plan: Acute on top of chronic diastolic CHF exacerbation developed during hospitalization continue IV diuresis (9) Generalized weakness: Code(s): R53.1 - Weakness Status: Acute Assessment and Plan: Continue PT OT evaluation (10) Recurrent falls: Code(s): R29.6 - Repeated falls Status: Acute Assessment and Plan: Fall precaution PT OT evaluation (11) Impaired mobility and ADLs: Code(s): Z74.09 - Other reduced mobility; Z78.9 - Other specified health status Status: Acute Assessment and Plan: As above (12) Unsteady gait: Code(s): R26.81 - Unsteadiness on feet Status: Acute Assessment and Plan: As above (13) Compression fracture of T10 vertebra: Code(s): S22.070A - Wedge compression fracture of T9-T10 vertebra, initial encounter for closed fracture Status: Acute Assessment and Plan: Pain control (14) CHRIS (obstructive sleep apnea): Code(s): G47.33 - Obstructive sleep apnea (adult) (pediatric) Status: Acute Assessment and Plan: Resume home medication (15) Inflammatory arthritis: Code(s): M19.90 - Unspecified osteoarthritis, unspecified site Status: Acute Assessment and Plan: Pain control (16) RUPERT positive: Code(s): R76.8 - Other specified abnormal immunological findings in serum Status: Acute Assessment and Plan: Follow-up with PCP as outpatient recommend dermatology eval septic (17) Interstitial lung disease: Code(s): J84.9 - Interstitial pulmonary disease, unspecified Status: Acute Assessment and Plan: Management as above Plan Leukocytosis worsening probably reactive monitor if no improvement consider CT scan of the chest Continue diuresis today Anticipate discharge on 12/28/2023 to rehab DS: Summary Time Spent with Patient Time attestation: Total time spent providing and/or coordinating discharge services: Exam Narrative: Generalized weakness Chest decreased air entry bilateral Abdomen nontender nondistended CVS S1 + S2 Lower extremity edema DS: Data Data Completed and Pending Labs on day of discharge: Labs from last 24 hours 12/27/23 05:42 WBC 13.5 H RBC 4.69 Hgb 14.1 Hct 44.2 MCV 94.2 MCH 30.1 MCHC 31.9 L RDW 14.1 Plt Count 261 MPV 10.9 H Immature Gran % (Auto) 0.6 H Neut % (Auto) 87.9 H Lymph % (Auto) 4.1 L Harris % (Auto) 6.9 Eos % (Auto) 0.3 Baso % (Auto) 0.2 Lymph # (
--- NOTE | 2023-12-27 15:46 | PM.IMPN ---
Progress Note: A&P Assessment and Plan (1) Pneumonia: Code(s): J18.9 - Pneumonia, unspecified organism Status: Acute Assessment and Plan: Treated with IV cefepime culture negative so far patient was switched to oral antibiotic (2) Altered mental status: Code(s): R41.82 - Altered mental status, unspecified Status: Acute Assessment and Plan: Probably related to pneumonia resolved back to baseline r (3) Leukocytosis: Code(s): D72.829 - Elevated white blood cell count, unspecified Status: Acute Assessment and Plan: Worsening today repeat CBC in the morning probably reactive if no improvement will get repeat chest x-ray (4) Constipation: Code(s): K59.00 - Constipation, unspecified Status: Acute Assessment and Plan: Improved continue laxative (5) Gait abnormality: Code(s): R26.9 - Unspecified abnormalities of gait and mobility Status: Acute Assessment and Plan: PT OT eval (6) Debilitated: Code(s): R53.81 - Other malaise Status: Acute Assessment and Plan: PT OT evaluate a difficult placement (7) Hyperlipidemia: Code(s): E78.5 - Hyperlipidemia, unspecified Status: Acute Assessment and Plan: Continue home medication (8) Diastolic congestive heart failure: Code(s): I50.30 - Unspecified diastolic (congestive) heart failure Status: Acute Assessment and Plan: Acute on top of chronic diastolic CHF exacerbation developed during hospitalization continue IV diuresis (9) Generalized weakness: Code(s): R53.1 - Weakness Status: Acute Assessment and Plan: Continue PT OT evaluation (10) Recurrent falls: Code(s): R29.6 - Repeated falls Status: Acute Assessment and Plan: Fall precaution PT OT evaluation (11) Impaired mobility and ADLs: Code(s): Z74.09 - Other reduced mobility; Z78.9 - Other specified health status Status: Acute Assessment and Plan: As above (12) Unsteady gait: Code(s): R26.81 - Unsteadiness on feet Status: Acute Assessment and Plan: As above (13) Compression fracture of T10 vertebra: Code(s): S22.070A - Wedge compression fracture of T9-T10 vertebra, initial encounter for closed fracture Status: Acute Assessment and Plan: Pain control (14) CHRIS (obstructive sleep apnea): Code(s): G47.33 - Obstructive sleep apnea (adult) (pediatric) Status: Acute Assessment and Plan: Resume home medication (15) Inflammatory arthritis: Code(s): M19.90 - Unspecified osteoarthritis, unspecified site Status: Acute Assessment and Plan: Pain control (16) RUPERT positive: Code(s): R76.8 - Other specified abnormal immunological findings in serum Status: Acute Assessment and Plan: Follow-up with PCP as outpatient recommend dermatology eval septic (17) Interstitial lung disease: Code(s): J84.9 - Interstitial pulmonary disease, unspecified Status: Acute Assessment and Plan: Management as above Plan Leukocytosis worsening probably reactive monitor if no improvement consider CT scan of the chest Continue diuresis today Anticipate discharge on 12/28/2023 to rehab Subjective Date/time seen: 12/27/23 15:46 Interval history: Patient seen and examined Stable to discharge today but the daughter is concerned about intermittent delirium Review of Systems Review of Systems: 14 systems were reviewed with pertinent positives and negatives per HPI. Except as documented in the HPI/progress notes, all other systems were reviewed and are negative. All systems reviewed & are unremarkable except as noted in HPI and below Exam Narrative: Generalized weakness Chest decreased air entry bilateral Abdomen nontender nondistended CVS S1 + S2 Lower extremity edema Objective Data Vital Signs Vital Sign
[2023-12-27] MEDS: DOCUSATE SODIUM 100 MG CAPSULE PO (17:12)
[2023-12-27] MEDS: ATORVASTATIN 20 MG TABLET PO (19:59)
[2023-12-28 03:45] VITALS: RESP 16; O2SAT 96
[2023-12-28 04:00] VITALS: BP 148/85; PULSE 65; RESP 20; TEMP 36.3; O2SAT 99
[2023-12-28] MEDS: CEFDINIR 300 MG CAPSULE PO ×2 (06:45→16:37)
[2023-12-28 06:53] LABS: Basophils Percent Auto 0.5 % (0.2-1.2); Eosinophils Absolute Auto 0.1 K/mm3 (0-0.3); Eosinophils Percent Auto 1.7 % (0-4.4); Hematocrit 46.2 % (37.0-47.0); Hemoglobin 14.3 g/dL (12.0-15.0); Immature Granulocyte Absolute 0.05 K/mm3 (0.00-0.031); Immature Granulocyte Percent A 0.6 % (0-0.5); Lymphocytes Absolute Auto 1.18 K/mm3 (0.9-3.2); Lymphocytes Percent Auto 14.5 % (18.3-44.2); Mean Corpuscular Hemoglobin 30.2 pg (26-34); Mean Corpuscular Volume 97.7 fl (80-100); Mean Platelet Volume 10.5 fl (7.4-10.4); Monocytes Absolute Auto 0.8 K/mm3 (0.1-0.6); Monocytes Percent Auto 9.2 % (2.6-8.5); Neutrophils Percent Auto 73.5 % (45.5-73.1); Platelet Count Result 236 k/mm3 (150-375); Red Blood Count 4.73 M/mm3 (4.2-5.4); Red Cell Distribution Width 14.1 % (11.5-14.5); White Blood Count 8.1 K/mm3 (4.5-10.0)
[2023-12-28 07:04] LABS: Alanine Aminotransferase 34 U/L (6-35); Albumin Level 3.3 g/dL (3.5-5.1); Alkaline Phosphatase 75 U/L (38-126); Anion Gap 3 mmol/L (8-16); Aspartate Amino Transferase 28 U/L (14-36); Bilirubin,Total 0.9 mg/dL (0.2-1.3); Blood Urea Nitrogen 14 mg/dL (7-17); Calcium 9.2 mg/dL (8.4-10.2); Carbon Dioxide 33 mmol/L (22-30); Chloride 97 mmol/L (98-107); Estimated CRCL calculation 85 ml/min; Estimated Glomerular Filt Rate > 60; Glucose 90 mg/dL (65-110); Potassium 3.8 mmol/L (3.4-5.0); Sodium 133 mmol/L (137-145)
[2023-12-28 08:00] VITALS: BP 136/68; PULSE 79; RESP 18; TEMP 35.9; O2SAT 96
[2023-12-28] MEDS: polyethylene glycoL 3350 17 GM POWD.PACK PO (08:45)
[2023-12-28] MEDS: ESCITALOPRAM OXALATE 10 MG TABLET 20 MG PO (08:45)
[2023-12-28] MEDS: APIXABAN 5 MG TABLET PO ×2 (08:45→21:20)
[2023-12-28] MEDS: FUROSEMIDE 40 MG TABLET PO (08:45)
[2023-12-28] MEDS: LOSARTAN POTASSIUM 100 MG TABLET PO (08:46)
--- NOTE | 2023-12-28 10:44 | WPDNEURCNPN ---
Assessment and Plan Assessment and plan (1) Metabolic encephalopathy: Code(s): G93.41 - Metabolic encephalopathy Status: Acute Assessment and Plan: Patient recently had pneumonia with a white cell count around 23,000. Is recovering from that.-condition it may take some time for this to clear. Flushed are common with at metabolic encephalopathy and recovery however patient may also have underlying dementia. (2) Dementia: Code(s): F03.90 - Unspecified dementia, unspecified severity, without behavioral disturbance, psychotic disturbance, mood disturbance, and anxiety Status: Acute Assessment and Plan: Patient may have underlying dementia have any baseline mental status examination on her. She probably has fair amount of deconditioning due to her overall condition in addition to her active medical problems including atrial fibrillation, chronic interstitial disease she will require follow-up and possible treatment for this he also also suggest checking a B12 and folic acid level and EEG unchanged Celexa to Lexapro 20 mg a day provided there are no contraindications from cardiac point of view. (3) Morbid obesity with BMI of 40.0-44.9, adult: Code(s): E66.01 - Morbid (severe) obesity due to excess calories; Z68.41 - Body mass index [BMI] 40.0-44.9, adult Status: Acute (4) Atrial fibrillation: Code(s): I48.91 - Unspecified atrial fibrillation Status: Chronic (5) CHRIS (obstructive sleep apnea): Code(s): G47.33 - Obstructive sleep apnea (adult) (pediatric) Status: Acute Plan From neurologic point of view I would suggest as follows 1. Check her serum B12 and folate and thyroid function test if not done 2. A CT scan of brain was performed on 12/21/2019 4 I have reviewed the films personally and agree with the findings. No acute abnormality was seen 3. Continue with Lexapro 20 mg a day 4. Aricept or donepezil 5 mg a day this may be increased further later on 5. I would like to see her for follow-up in 6-8 weeks time in my office allowing recovery from the current infection and see the response to current medication dispose of memory loss prevention to the family members at this of course will require some follow-up. Consult date: 12/28/23 Reason for consult: The patient is 83 years old white female seen for initial neurologic evaluation. The patient was admitted to the hospital on account of generalized weakness and was found to have evidence for pneumonia with a white cell count of 23,000. She also history interstitial lung disease, atrial fibrillation and is on Eliquis. She had been found to have fluctuating mental status. The patient has difficulty in walking and using a walker. When I saw her she pointed out she does have a walker and she has been using at home and she requires some assistance with the activities such as showering or changing clothes but she can feed herself. She told me she has 4 children. According to the nursing staff the daughters have been visiting and they are concerned about her fluctuating mental status. One of them seems to think that she has dementia and is 1 of the others think that she does not. She was also found to have fracture of the T9 to and she has history of balance a while. Her RUPERT was found to be positive. CT scan of brain was negative. According to the records she was in group home. This by for the patient. The patient sometimes shows fixation to 1 3 and then C4 gets worse he asked for. However she is very pleasant to talk to at the same time sees appears somewhat anxious since he has having pain all over the body. When I are states he has been any specific location more than others sees his no. She denies any headache. She has not had any nausea being. HPI: Janie Bharath Luisito is a 83 year old female Review of Systems Review of Systems: The patient was hours are worse he does not think she has any problem. She complains of ge
[2023-12-28 12:00] VITALS: BP 148/69; PULSE 82; RESP 18; TEMP 36.9; O2SAT 97
--- NOTE | 2023-12-28 13:05 | PM.IMPN ---
Progress Note: A&P Assessment and Plan (1) Pneumonia: Code(s): J18.9 - Pneumonia, unspecified organism Status: Acute Assessment and Plan: On Cefdinir (2) Altered mental status: Code(s): R41.82 - Altered mental status, unspecified Status: Acute Assessment and Plan: Intermittent Neurology consulted; believes it is due to illness. Will f/u in 6-8 weeks; Folate, B12, TSH ordered (3) Leukocytosis: Code(s): D72.829 - Elevated white blood cell count, unspecified Status: Acute Assessment and Plan: Improved; continue to monitor (4) Constipation: Code(s): K59.00 - Constipation, unspecified Status: Acute (5) Gait abnormality: Code(s): R26.9 - Unspecified abnormalities of gait and mobility Status: Acute Assessment and Plan: Poor motivation; Continue Rx (6) Debilitated: Code(s): R53.81 - Other malaise Status: Acute Assessment and Plan: Placement plans underway (7) Hyperlipidemia: Code(s): E78.5 - Hyperlipidemia, unspecified Status: Acute (8) Diastolic congestive heart failure: Code(s): I50.30 - Unspecified diastolic (congestive) heart failure Status: Acute (9) Generalized weakness: Code(s): R53.1 - Weakness Status: Acute (10) Recurrent falls: Code(s): R29.6 - Repeated falls Status: Acute (11) Impaired mobility and ADLs: Code(s): Z74.09 - Other reduced mobility; Z78.9 - Other specified health status Status: Acute (12) Unsteady gait: Code(s): R26.81 - Unsteadiness on feet Status: Acute (13) Compression fracture of T10 vertebra: Code(s): S22.070A - Wedge compression fracture of T9-T10 vertebra, initial encounter for closed fracture Status: Acute (14) CHRIS (obstructive sleep apnea): Code(s): G47.33 - Obstructive sleep apnea (adult) (pediatric) Status: Acute (15) Inflammatory arthritis: Code(s): M19.90 - Unspecified osteoarthritis, unspecified site Status: Acute (16) RUPERT positive: Code(s): R76.8 - Other specified abnormal immunological findings in serum Status: Acute (17) Interstitial lung disease: Code(s): J84.9 - Interstitial pulmonary disease, unspecified Status: Acute Plan Will DC in 1-2 days Time Spent With Patient Time with patient: 25 - 35 minutes Subjective Date/time seen: 12/28/23 13:05 Interval history: Patient seen and examined Neurology consulted for intermittent delirium, work-up underway Will likely DC in 1-2 days. Review of Systems Review of Systems: 14 systems were reviewed with pertinent positives and negatives per HPI. Except as documented in the HPI/progress notes, all other systems were reviewed and are negative. All systems reviewed & are unremarkable except as noted in HPI and below Constitutional: Constitutional: Reports fatigue and Reports lethargy Eyes: Eyes: Reports no additional eye complaints ENT: Reports Normal hearing present and Denies dysphagia Cardiovascular: Cardiovascular: Reports no additional cardiovascular complaints and Denies chest pain Respiratory: Respiratory: Denies dyspnea Gastrointestinal: Gastrointestinal: Reports no additional gastrointestinal complaints Musculoskeletal: Musculoskeletal: Reports joint swelling Integumentary/Breasts: Skin/Breast: Reports dry skin Neurologic: Reports abnormal gait Psychiatric: Psychiatric: Reports anxiety and Reports confusion Objective Data Vital Signs Vital Signs: Vital Signs - 24 hr 12/27/23 16:00 12/27/23 20:00 12/27/23 21:51 Temperature 95.7 F L 97.8 F Pulse Rate 93 90 80 Respiratory Rate 18 18 20 Blood Pressure 143/90 H 136/80 Pulse Oximetry 98 95 97 Oxygen Delivery Autopap 12/27/23 22:38 12/27/23 20:00 12/28/23 03:45 Temperature Pulse Rate 83 Respiratory Rate 18 16 Blood Pressure Pulse Oximetry 97 96 Oxygen Delivery
[2023-12-28 13:52] LABS: Vitamin D 25 Hydroxy 20.7 ng/mL
[2023-12-28 14:39] LABS: Folic Acid 3.7 ng/mL (2.76->20)
[2023-12-28 16:00] VITALS: BP 145/84; PULSE 90; RESP 18; TEMP 37.1; O2SAT 96
[2023-12-28 20:00] VITALS: BP 148/83; PULSE 91; RESP 20; TEMP 37.2; O2SAT 93
[2023-12-28] MEDS: ATORVASTATIN 20 MG TABLET PO (21:20)
[2023-12-29] VITALS: BP 150/92; PULSE 102; RESP 20; TEMP 36.3; O2SAT 90
[2023-12-29 04:00] VITALS: BP 156/89; PULSE 86; RESP 20; TEMP 36.1; O2SAT 93
[2023-12-29] MEDS: CEFDINIR 300 MG CAPSULE PO ×2 (06:44→16:20)
[2023-12-29 08:00] VITALS: BP 173/75; PULSE 102; RESP 18; TEMP 36.4; O2SAT 92
[2023-12-29] MEDS: LOSARTAN POTASSIUM 100 MG TABLET PO (08:45)
[2023-12-29] MEDS: DONEPEZIL HCL 5 MG TABLET PO (08:45)
[2023-12-29] MEDS: FUROSEMIDE 40 MG TABLET PO (08:45)
[2023-12-29] MEDS: APIXABAN 5 MG TABLET PO (08:45)
[2023-12-29] MEDS: ESCITALOPRAM OXALATE 10 MG TABLET 20 MG PO (08:45)
--- NOTE | 2023-12-29 09:18 | WPDNEUROPN ---
Progress Note: A&P Assessment and Plan (1) Metabolic encephalopathy: Code(s): G93.41 - Metabolic encephalopathy Status: Acute (2) Pneumonia: Code(s): J18.9 - Pneumonia, unspecified organism Status: Acute (3) Cognitive impairment: Code(s): R41.89 - Other symptoms and signs involving cognitive functions and awareness Status: Acute Plan Ms. Jorge is an 83 year old female with a history of ILD, atrial fibrillation who is a assisted resident currently admitted for pneumonia. She has had fluctuating mental status during admission, likely related to the underlying infection, although other family members believe that this has been a long standing issue. B12 and folate levels were on the lower end of normal, which are worth repleting. Also needs more detailed neuroimaging with MRI brain, if not already done by her primary neurologist (daughter reports it has been done but we do not have records). More formal neurocognitive testing can be done as outpatient in about 2 months during follow-up with Dr. Richardson. Subjective Date/time seen: 12/29/23 09:18 Interval history: Ms. Jorge is an 83 year old female with a history of cognitive impairment, ILD, atrial fibrillation who is a assisted resident currently admitted for pneumonia. She has had fluctuating mental status during admission, presumably thought to be related to the underlying infection. However, once of her daughters feel that she has underlying dementia, while the other believes that she does not. She had a CT head during this admission that was negative for any acute changes. MRI brain has not been done. B12 was on the lower end of normal at 327. Folic acid was on the lower end of normal as well at 3.7. TSH was normal. Dr. Richardson started her on Aricept 5mg daily. One of patient's daughter is at bedside this morning. She feels that patient has early dementia because of her alterations in mental status. This seems to occur in the setting of infections -- she has had encephalopathy with UTIs in the past, but also seems to occur when she is not admitted with an acute illness. At times patient will not know where she is, despite being at home (she lives in assisted living facility). Daughter feels that there is a 'disconnect' between patient's brain and the rest of her body. She freezes while walking with her walker and will fall. She seems to have some issues with her memory, but daughter is not really able to elaborate this in very much detail. Patient has previously seen Dr. Rivera (neurologist) and reportedly had a full work up for the mental status concerns. Per daughter she had an MRI brain and it was reportedly unrevealing, although we have no record of this. Per daughter, Dr. Chavez felt that she did not have dementia, but rather symptoms suggestive of depression. Daughter expressed that patient has been depressed since her . Patient has never been a heavy or daily drinker. There is no family history of dementia as far as they are aware. Review of Systems Review of Systems: ROS unobtainable: Yes unobtainable due to mental status Exam Const: General: comfortable and no acute distress HENMT: Mouth: Yes moist mucous membranes Eyes: Pupils: Equal, round and reactive pupils present EOM: EOMs intact bilaterally Resp: Effort & Inspection: normal respiratory effort Skin: General skin exam: normal color Neuro: Other: alert, oriented to self. When asked location, she kept saying 'home', but when she was told she is at a hospital, she was able to tell which hospital she is at. Knew that the month is December but said year is 2027. Knew current president. Unable to spell [place] backwards. Pupils equal and reactive bilaterally, EOMI, face symmetric, facial sensation intact, tongue protrudes midline, palate midline. Strength is symmetric and age appropriate in the upper extremities. Can temporarily lift lower extremities antigr
--- NOTE | 2023-12-29 11:49 | WPDNEUROLOGY ---
Neurology EEG Report General Information Date of Study: 12/29/23 TEST Routine EEG DIAGNOSIS Flutuating mental status CONDITION OF RECORDING Awake, drowsy EEG NUMBER [id number] CLINICAL HISTORY Patient is currently admitted for pneumonia. She has had altered mental status during the admission. Daughter reports concerns for longer standing cognitive issues, raising concern for possible dementia. EEG DESCRIPTION During the awake state with eyes closed the background consists of poorly defined, approximately 5-7Hz posterior dominant rhythm. The recording is continuous. There is a well developed anterior-posterior gradient. No significant asymmetries of background activities are noted. With drowsiness there is a mixture of beta, alpha, and theta activity. Patient does not enter stage II sleep. There are no epileptiform discharges or seizures during this recording. Hyperventilation and photic stimulation were not performed. IMPRESSION This is an abnormal routine EEG recorded in the awake and drowsy states due to presence of poorly defined and slower posterior dominant rhythm. This findings can be seen in the setting of mild encephalopathy due to undetermined etiology. No epileptiform features were seen during the recording. Clinical correlation is recommended.
[2023-12-29 12:00] VITALS: BP 150/91; PULSE 72; RESP 16; TEMP 36.2; O2SAT 94
[2023-12-29 12:23] LABS: SARS-CoV-2 RNA PCR Negative (Negative)
--- NOTE | 2023-12-29 14:16 | PCNWS ---
Weekly nutritional screen. Patient is tolerating current heart healthy diet with adequate intake at 50-75% most meals. Pt reports good appetite and intake. Does not wish for any supplements. No weight loss reported. No nutritional needs at this time.
--- NOTE | 2023-12-29 16:39 | PM.DS ---
DS: Admitting Diagnosis Discharge Date 12/29/23 Admitting Diagnosis 1. Acute metabolic encephalopathy 2. Physical deconditioning 3. Probable Pnemonia DS: Discharge Diagnosis Discharge Diagnosis (1) Pneumonia: Code(s): J18.9 - Pneumonia, unspecified organism Status: Acute Assessment and Plan: On Cefdinir (2) Altered mental status: Code(s): R41.82 - Altered mental status, unspecified Status: Acute Assessment and Plan: Intermittent Neurology consulted; believes it is due to illness. Will f/u in 6-8 weeks; Folate, B12, TSH ordered (3) Leukocytosis: Code(s): D72.829 - Elevated white blood cell count, unspecified Status: Acute Assessment and Plan: Improved; continue to monitor (4) Constipation: Code(s): K59.00 - Constipation, unspecified Status: Acute (5) Gait abnormality: Code(s): R26.9 - Unspecified abnormalities of gait and mobility Status: Acute Assessment and Plan: Poor motivation; Continue Rx (6) Debilitated: Code(s): R53.81 - Other malaise Status: Acute Assessment and Plan: Placement plans underway (7) Hyperlipidemia: Code(s): E78.5 - Hyperlipidemia, unspecified Status: Acute (8) Diastolic congestive heart failure: Code(s): I50.30 - Unspecified diastolic (congestive) heart failure Status: Acute (9) Generalized weakness: Code(s): R53.1 - Weakness Status: Acute (10) Recurrent falls: Code(s): R29.6 - Repeated falls Status: Acute (11) Impaired mobility and ADLs: Code(s): Z74.09 - Other reduced mobility; Z78.9 - Other specified health status Status: Acute (12) Unsteady gait: Code(s): R26.81 - Unsteadiness on feet Status: Acute (13) Compression fracture of T10 vertebra: Code(s): S22.070A - Wedge compression fracture of T9-T10 vertebra, initial encounter for closed fracture Status: Acute (14) CHRIS (obstructive sleep apnea): Code(s): G47.33 - Obstructive sleep apnea (adult) (pediatric) Status: Acute (15) Inflammatory arthritis: Code(s): M19.90 - Unspecified osteoarthritis, unspecified site Status: Acute (16) RUPERT positive: Code(s): R76.8 - Other specified abnormal immunological findings in serum Status: Acute (17) Interstitial lung disease: Code(s): J84.9 - Interstitial pulmonary disease, unspecified Status: Acute Plan Will DC in 1-2 days DS: Summary Hospital Course Reason for hospitalization: 1. Acute metabolic encephalopathy Hospital Course: Chief Complaint: Patient brought to the ER for evaluation with the generalized weakness and altered mental state Narrative: She is a pleasant lady with chronic medical issues who is a custodial resident.? She was recently diagnosed with MRSA UTI which was treated with antibiotics.? According to the family, she is getting weak, tired and fatigued with difficulty walking and the having altered mental status.? Patient brought to the ER for evaluation, workup was done which chronic interstitial lung disease with superimposed pneumonia.? There was no evidence of UTI. Patient also had constipation with retained stool.? She is being admitted for IV antibiotics, medical management and further work. CXR: Small left pleural effusion with left basilar airspace opacities, atelectasis versus pneumonia. Significant findings: Fatigue; abnormal EEG; CXR showing probable pneumonia Procedures performed: EEG: This is an abnormal routine EEG recorded in the awake and drowsy states due to presence of poorly defined and slower posterior dominant rhythm. This findings can be seen in the setting of mild encephalopathy due to undetermined etiology. No epileptiform features were seen during the recording. Treatment rendered: Donepezil, antibiotics Time spent discussing smoking cessation with patient: more than 10 minutes Status at Discharg
[2023-12-31 06:45] LABS: Red Blood Cell Folate 469 ng/mL RBC (>280)
== END 2023-12-29 18:06 | DRG 193 ==
LOC: ANHED 12-22 02:43 → ANH3MEDSUR 12-22 03:33
PROVIDERS: Internal Medicine; Psychiatry & Neurology Neurology; Admitting Provider Internal Medicine; Emergency Provider Emergency Medicine; PCP Internal Medicine; Visit Provider Family Medicine
DX: J18.9 Pneumonia, unspecified organism (principal); G93.41 Metabolic encephalopathy; I50.33 Acute on chronic diastolic (congestive) heart failure; S22.070A Wedge compression fracture of T9-T10 vertebra, initial encounter for closed fracture; J84.9 Interstitial pulmonary disease, unspecified; K59.00 Constipation, unspecified; D72.829 Elevated white blood cell count, unspecified; M19.90 Unspecified osteoarthritis, unspecified site; I48.91 Unspecified atrial fibrillation; G47.33 Obstructive sleep apnea (adult) (pediatric); I89.0 Lymphedema, not elsewhere classified; E66.9 Obesity, unspecified; E78.5 Hyperlipidemia, unspecified; R76.8 Other specified abnormal immunological findings in serum; R29.6 Repeated falls; X58.XXXA Exposure to other specified factors, initial encounter; Z20.822 Contact with and (suspected) exposure to COVID-19; Z68.35 Body mass index [BMI] 35.0-35.9, adult; Z87.891 Personal history of nicotine dependence
CPT/HCPCS: 36415; 70450; 71045; 74177; 80048; 80053; 81001; 82306; 82607; 82746; 82747; 82948; 83605; 83735; 84100; 84145; 84443; 84484; 85025; 85610; 85730; 87040; 87086; 87635; 87637; 87641; 93005; 94640; 95816; 96361; 96365; 96366; 97110; 97116; 97161; 97165; 97530; 97535; 99285; A9270; G0378; J0456; J0692; J1650; J1940; J3370; J7030; Q9967